=== PATIENT | female | born 1950 | race Caucasian/White ===

== ENCOUNTER → 2018-11-22 18:22 | Outpatient (CLI) | payer OTHER, SELFPAY ==
--- NOTE | 2018-11-22 18:27 | DI.MRI.S_ITS ---
PROCEDURE: MRFOOT LT WO CON INDICATIONS: PERONEAL TENDINITIS TECHNIQUE: Noncontrast sagittal T1 spin echo and T2 fast spin echo with fat saturation, long-axis T1 spin echo and T2 fast spin echo with fat saturation, short-axis T1 spin echo and T2 fast spin echo with fat saturation through the forefoot. COMPARISON: None. FINDINGS: Image quality: Diagnostic. Bones and joints: There is diffuse prominent marrow edema identified involving the anterior aspect of the calcaneus with a small nondisplaced fracture line evident involving the anterior process. There is mild focal marrow edema evident involving the adjacent cuboid. Otherwise, the remainder of the image osseous structures are unremarkable. Please note that the entire calcaneus and hindfoot structures are not included on this study. No suspicious osseous lesions are present. No dislocation is evident. There are mild degenerative changes involving the midfoot and forefoot joints, most pronounced involving the lateral tarsometatarsal joints. Soft tissues: Moderate soft tissue swelling about the lateral margin of the image portions of the calcaneus are present. Additional areas of midfoot soft tissue edema is noted. No loculated or drainable fluid collections are present. No soft tissue masses are evident. There is diffuse atrophy involving the intrinsic muscles of the foot. Please note that the peroneal tendons are not adequately included on this study. However, there probably is thickening of the peroneus longus tendon underlying the cuboid. No significant tearing is present. The peroneus brevis tendon is intact, but not well evaluated IMPRESSION: 1. Nondisplaced fracture involving the anterior process of the calcaneus. 2. Mild to moderate degenerative changes at the midfoot and hindfoot are more prominent involving the cuboid-4th/5th metatarsal joints. This may potentially mimic peroneal tendinopathy. 3. Probable mild distal peroneus longus tendinopathy. 4. Please note that the peroneal tendons at the level of the ankle are not included. If there continues to be concern for peroneal tendon pathology, please consider an MRI for further evaluation. Dictated by: Pavan Donahue M.D. on 11/25/2018 at 9:09 Approved by: Pavan Donahue M.D. on 11/25/2018 at 9:21
== END ==
LOC: MRI 18:26
PROVIDERS: Visit Provider Podiatrist
DX: S92.022A Displaced fracture of anterior process of left calcaneus, initial encounter for closed fracture (principal); M76.72 Peroneal tendinitis, left leg; M19.072 Primary osteoarthritis, left ankle and foot
CPT/HCPCS: 73718

== ENCOUNTER → 2020-01-01 08:42 | Outpatient (CLI) | payer OTHER, SELFPAY | PROVIDERS: PCP Family Medicine; Referring Provider Podiatrist; Visit Provider Family Medicine | DX: L97.521 Non-pressure chronic ulcer of other part of left foot limited to breakdown of skin (principal); E11.621 Type 2 diabetes mellitus with foot ulcer; L03.116 Cellulitis of left lower limb | CPT/HCPCS: 11042; 87070; 87075; 87077; 87186; 87205; 99203; 99214 ==

== ENCOUNTER → 2020-01-08 11:44 | Outpatient (CLI) | payer OTHER, SELFPAY | PROVIDERS: PCP Family Medicine; Referring Provider Family Medicine; Visit Provider Family Medicine | DX: E11.621 Type 2 diabetes mellitus with foot ulcer (principal); L97.521 Non-pressure chronic ulcer of other part of left foot limited to breakdown of skin | CPT/HCPCS: 97597 ==

== ENCOUNTER → 2020-01-15 09:42 | Outpatient (CLI) | payer OTHER, SELFPAY | PROVIDERS: PCP Family Medicine; Referring Provider Family Medicine; Visit Provider Family Medicine | DX: E11.43 Type 2 diabetes mellitus with diabetic autonomic (poly)neuropathy (principal); M21.6X2 Other acquired deformities of left foot | CPT/HCPCS: 99212; 99213 ==

== ENCOUNTER → 2020-05-26 13:34 | Outpatient (CLI) | payer OTHER, SELFPAY | PROVIDERS: PCP Family Medicine; Referring Provider Family Medicine; Visit Provider Family Medicine | DX: E11.621 Type 2 diabetes mellitus with foot ulcer (principal); L97.521 Non-pressure chronic ulcer of other part of left foot limited to breakdown of skin; E11.40 Type 2 diabetes mellitus with diabetic neuropathy, unspecified | CPT/HCPCS: 11042; 87070; 87075; 87077; 87186; 87205; 99213; 99214 ==

== ENCOUNTER → 2020-06-02 13:14 | Outpatient (CLI) | payer OTHER, SELFPAY | PROVIDERS: PCP Family Medicine; Referring Provider Family Medicine; Visit Provider Family Medicine | DX: E11.621 Type 2 diabetes mellitus with foot ulcer (principal); M21.6X2 Other acquired deformities of left foot; E11.40 Type 2 diabetes mellitus with diabetic neuropathy, unspecified | CPT/HCPCS: 99213 ==

== ENCOUNTER 2020-08-28 13:34 | Emergency (ER) | payer OTHER, SELFPAY ==
[2020-08-28 13:44] VITALS: BP 149/67; PULSE 82; RESP 12; TEMP 36.1; O2SAT 98; BMI 36.5
--- NOTE | 2020-08-28 16:07 | ED.WOUNDLAC ---
HPI - Wound/Laceration General Chief Complaint: Wound/Laceration Stated Complaint: suspects infection on callous of left foot Time Seen by Provider: 08/28/20 16:07 Source: patient Mode of arrival: Wheelchair Limitations: no limitations History of Present Illness HPI narrative: Patient is a 69-year-old female. She is a insulin-dependent diabetic. Has a known callus on the lateral aspect of her left foot that she has had for quite a while. She reports that she started noticing some more discomfort in the area over the past week and then over the past 24 hours has noticed redness and a swelling and potential infection over the area. She is afebrile. She has a appointment with wound care at the beginning of next week. She has not tried anything for the symptoms prior to arrival. Related Data Previous Rx's Medication Instructions Recorded cephalexin 500 mg PO QID 14 Days #56 cap 08/28/20 sulfamethoxazole-trimethoprim 1 tab PO BID 14 Days #28 tab 08/28/20 [Bactrim DS] Allergies Allergy/AdvReac Type Severity Reaction Status Date / Time codeine Allergy Severe ITCHING Verified 08/28/20 13:47 unknown antibiotic Allergy Mild Uncoded 08/28/20 13:49 Review of Systems Constitutional Constitutional: Denies fever(s) Cardiovascular Cardiovascular: Denies dyspnea Respiratory Respiratory: Denies dyspnea Gastrointestinal Gastrointestinal: Denies abdominal pain Musculoskeletal Comments: Redness and swelling to left foot Integumentary/Breasts Comments: Redness and swelling to left foot Neurologic Neurologic: Denies behavioral changes Comments: No sensation changes left foot Psychiatric Psychiatric: Denies behavioral changes Hematologic/Lymphatic On Anticoagulants: No Allergic/Immunologic Allergic/Immunologic: Denies urticaria Patient History Medical History Diabetes Social History Smoking Status: Former smoker Smoking Status: Former smoker Substance Use Type: does not use Exam Initial Vital Signs Initial Vital Signs: Vital Signs Temperature 97.0 F L 08/28/20 13:44 Pulse Rate 82 08/28/20 13:44 Respiratory Rate 12 08/28/20 13:44 Blood Pressure 149/67 H 08/28/20 13:44 Pulse Oximetry 98 08/28/20 13:44 Const General: cooperative and comfortable Limitations: mental status not altered HENMT Head: normal to inspection and normocephalic Cardio Pulses: dorsalis pedis present Skin Other: Patient does have a 2 cm callus on the lateral aspect of the left foot. Just superior to this she does have a 3 cm x 2 cm superficial abscess. Has cellulitis that extends to the dorsum of the foot but not proximal to the ankle. Neuro Other: Decreased sensation bilateral lower extremities but this is not new for Extrem Other: Full range of motion of left ankle. Procedures Abscess I/D I&D #1: Site: foot Side (if applicable): left Technique: incised with #11 blade Irrigation: No Packing used?: none Complications: other (None) Course Orders Ordered: ED Orders 08/28/20 16:05 Wound Culture and Gram Stain Stat Discontinued Medications Cephalexin HCl (Cephalexin 250 Mg Capsule) 500 mg PO NOW ONE Stop: 08/28/20 16:09 Last Admin: 08/28/20 16:21 Dose: 500 mg Documented by: BALBIR Trimethoprim/Sulfamethoxazole (Trimeth/Sulfa 160/800 (Ds) Tablet) 1 tab PO NOW ONE Stop: 08/28/20 16:09 Last Admin: 08/28/20 16:21 Dose: 1 tab Documented by: BALBIR Vital Signs Vital signs: Vital Signs - 8 hr 08/28/20 13:44 Temperature 97.0 F L Pulse Rate 82 Respiratory Rate 12 Blood Pressure 149/67 H Pulse Oximetry 98 MDM - Wound/Laceration MDM Narrative Medical decision making narrative: Patient does no change in her neurologic status. The superficial abscess was drained. No anesthetic was used and patient tolerated well. A wound culture was taken. Will send home with antibiotics. She is given her 1st dose here in the ER and a prescription was sent to the pharmacy of her choice. She ordered is a follow-up with wound care next week. She is nontoxic. Nonseptic. She was given return precautions. She expressed understanding and agreement. Discharge Plan Departure Patient Disposition: Home Clinical Impression: Cellulitis Instructions: DI for Cellulitis -- Adult Activity Restrictions/Additional Instructions: I recommend you take all of your antibiotics as directed. Continue to take the rest of your medications as directed. Keep your scheduled appointment with the wound care clinic on Sunday. Return to the emergency department for any new or worsening symptoms Prescriptions: New cephalexin 500 mg capsule 500 mg PO QID 14 Days Qty: 56 RF: 0 sulfamethoxazole-trimethoprim [Bactrim DS] 800-160 mg tablet 1 tab PO BID 14 Days Qty: 28 RF: 0 Referrals: Opal Escalante PA-C [Primary Care Provider] -
[2020-08-28] MEDS: TRIMETH/SULFA 160/800 (DS) TABLET 1 TAB PO (16:21)
[2020-08-28] MEDS: cephALEXin 250 MG CAPSULE 500 MG PO (16:21)
--- NOTE | 2020-08-28 16:27 | PC.NURSE ---
reports second ocurance of this blister. Seen in wound care prior for it. Provider lanced and obtained a culture specimen sent to the lab. covered with non adhearant gauze, wrapped with roll gauze and coban.
== END 2020-08-28 16:29 | disposition home or self-care (01) ==
PROVIDERS: Emergency Provider Emergency Medicine; PCP Physician Assistant Medical
DX: L03.116 Cellulitis of left lower limb (principal)
CPT/HCPCS: 87070; 87075; 87077; 87147; 87186; 87205; 99283

== ENCOUNTER → 2020-08-31 09:40 | Outpatient (CLI) | payer OTHER, SELFPAY | PROVIDERS: PCP Physician Assistant Medical; Referring Provider Physician Assistant Medical; Visit Provider Family Medicine | DX: E11.621 Type 2 diabetes mellitus with foot ulcer (principal); L97.521 Non-pressure chronic ulcer of other part of left foot limited to breakdown of skin; L03.116 Cellulitis of left lower limb; L08.9 Local infection of the skin and subcutaneous tissue, unspecified; R60.0 Localized edema; E11.40 Type 2 diabetes mellitus with diabetic neuropathy, unspecified | CPT/HCPCS: 11042; 99213; 99214 ==

== ENCOUNTER → 2020-09-07 14:45 | Outpatient (CLI) | payer OTHER, SELFPAY | PROVIDERS: PCP Physician Assistant Medical; Referring Provider Physician Assistant Medical; Visit Provider Family Medicine | DX: E11.621 Type 2 diabetes mellitus with foot ulcer (principal); L97.521 Non-pressure chronic ulcer of other part of left foot limited to breakdown of skin | CPT/HCPCS: 99212 ==

== ENCOUNTER → 2020-09-14 11:27 | Outpatient (CLI) | payer OTHER, SELFPAY | PROVIDERS: PCP Physician Assistant Medical; Referring Provider Physician Assistant Medical; Visit Provider Family Medicine | DX: E11.40 Type 2 diabetes mellitus with diabetic neuropathy, unspecified (principal); Z86.31 Personal history of diabetic foot ulcer; R60.0 Localized edema; M21.6X2 Other acquired deformities of left foot | CPT/HCPCS: 99213 ==

== ENCOUNTER 2020-10-30 16:28 | Emergency (ER) | payer OTHER, SELFPAY ==
[2020-10-30] VITALS (14 sets, daily range): BP systolic 134–152; BP diastolic 60–68; PULSE 91–111; RESP 12–22; TEMP 36.9; O2SAT 92–98; BMI 36.5
--- NOTE | 2020-10-30 16:29 | DI.RAD.S_ITS ---
PROCEDURE: XR CHEST 1V INDICATIONS: shortness of breath TECHNIQUE: One view of the chest was acquired. COMPARISON: None. FINDINGS: Surgical changes and devices: None. Lungs and pleura: Lungs are clear. No pleural effusions or pneumothorax. Mediastinum: Mediastinal contours appear normal. Heart size is normal. Bones and chest wall: No suspicious bony lesions. Overlying soft tissues appear unremarkable. IMPRESSION: No evidence acute pulmonary process. Dictated by: Robin Mohr M.D. on 10/30/2020 at 15:58 Approved by: Robin Mohr M.D. on 10/30/2020 at 15:58
[2020-10-30 16:59] LABS: Add Manual Diff / Slide Review NO; Basophils Absolute Auto 0 /uL (0-100); Basophils Percent Auto 0.5 % (0-2); Eosinophils Absolute Auto 0 /uL (0-450); Eosinophils Percent Auto 0.1 % (2-4); Hematocrit 38.1 % (36-46); Hemoglobin 13.2 g/dL (12.0-16.0); Lymphocytes Absolute Auto 900 /uL (1100-4500); Lymphocytes Percent Auto 19.4 % (25-40); Mean Corpuscular HGB Conc 34.8 % (30-36); Mean Corpuscular Hemoglobin 31.9 PG (26-34); Mean Corpuscular Volume 91.8 fL (80-100); Monocytes Absolute Auto 200 /uL (0-900); Monocytes Percent Auto 4.1 % (3-14); Neutrophils Absolute Auto 3700 /uL (1500-7000); Neutrophils Percent Auto 75.9 % (50-75); Platelet Count 211 X10^3/uL (150-400); Red Blood Cell Count 4.15 X10^6/uL (4.0-5.2); Red Cell Distribution Width 13.1 % (11.6-14.8); White Blood Cell Count 4.8 X10^3/uL (4.5-11.0)
[2020-10-30 17:11] LABS: Alanine Aminotransferase 48 IU/L (<35); Albumin 3.9 g/dL (3.5-5.0); Albumin Globulin Ratio 1.2 (1.0-2.8); Alkaline Phosphatase 110 U/L (38-126); Aspartate Aminotransferase 34 IU/L (14-36); BUN Creatinine Ratio 41.9 (6-22); Bilirubin Total 0.3 mg/dL (0.2-1.3); Blood Urea Nitrogen 39 mg/dL (7-17); Calcium 9.4 mg/dL (8.4-10.2); Carbon Dioxide 21 mmol/L (22-32); Chloride 105 mmol/L (98-107); Globulin 3.2 g/dL (1.7-4.1); Glucose 334 mg/dL (80-110); HEMOLYSIS < 15 (0-50); Lactate (Lactic Acid) 2.3 mmol/L (0.7-2.1); Potassium 4.5 mmol/L (3.4-5.1); Sodium 135 mmol/L (137-145); Total Protein 7.1 g/dL (6.3-8.2)
--- NOTE | 2020-10-30 17:29 | ED_ITS ---
HPI - SOB/Dyspnea General Chief Complaint: Shortness of Breath/Dyspnea Stated Complaint: sob Time Seen by Provider: 10/30/20 16:50 Source: patient Mode of arrival: Ambulatory Limitations: no limitations History of Present Illness HPI Narrative: This is a 69-year-old female who comes in with complaint of feeling unwell. Patient states she had a cough prior to testing positive for COVID. She since then he has had some increased nausea but no active vomiting, decreased appetite, she has had headaches, muscle aches and fatigue. She has had some mild chest discomfort, and describes some mild shortness of breath. She does state she feels quite tired walking around. She states she has not been eating and drinking much. She states her sugars had been well controlled until recently. She is an insulin-dependent diabetic, she had takes medication for hypertension and ibuprofen 800 mg twice daily. Patient denies any known cardiac history. She states she has had a prior hysterectomy. She has allergies to codeine and Augmentin. She quit using tobacco in 2000, no alcohol or illicit. Her primary care physician is Deven escalante. patient lives independently with her sister who has been helping her currently. Related Data Previous Rx's Medication Instructions Recorded ondansetron 4 mg PO Q6H PRN #10 tab 10/30/20 Allergies Allergy/AdvReac Type Severity Reaction Status Date / Time codeine Allergy Severe ITCHING Verified 08/28/20 13:47 amoxicillin [From Augmentin] Allergy Verified 10/30/20 16:48 clavulanic acid Allergy Verified 10/30/20 16:48 [From Augmentin] unknown antibiotic Allergy Mild Uncoded 08/28/20 13:49 Review of Systems Review of Systems ROS Unobtainable: All systems reviewed & are unremarkable except as noted in HPI and below Patient History Medical History Diabetes Hypertension Social History Smoking Status: Former smoker Smoking Status: Former smoker Substance Use Type: does not use Exam Narrative Exam Narrative: GENERAL: Alert and oriented x three, female in mild distress. HEENT: Head normocephalic, atraumatic, EOMI, pupils reactive, face symmetric, moist mucous membranes NECK: Supple, full range of motion CARDIOVASCULAR: regular but tachycardic rate and rhythm without murmurs, rubs or gallops. RESPIRATORY: Breath sounds equal bilaterally, no wheezes rales or rhonchi. No JVD. No swelling in extremities. ABDOMEN: Soft, nontender. Normoactive bowel sounds all 4 quadrants. No guarding or rebound, rigidity, no mass : No CVA tenderness EXTREMITIES: Normal range of motion, no clubbing or edema. Neurovascularly intact NEUROLOGICAL: Cranial nerves II through XII grossly intact. Moving all extremities SKIN: Warm, dry, no petechiae, no rashes or lesions. Initial Vital Signs Initial Vital Signs: Vital Signs Temperature 98.5 F 10/30/20 16:30 Pulse Rate 110 H 10/30/20 16:30 Respiratory Rate 12 10/30/20 16:30 Blood Pressure 138/66 10/30/20 16:30 Pulse Oximetry 98 10/30/20 16:30 Course Orders Ordered: ED Orders 10/30/20 16:29 XR chest 2V Stat RT Consult Eval and Treat Now 10/30/20 16:40 Complete Blood Count AUTO DIFF Stat Comprehensive Metabolic Panel Stat Lactate (Lactic Acid) Stat NT-proBNP (BNP-Adult 18+) Stat Procalcitonin Stat Troponin & CK Cardiac Panel Stat 10/30/20 16:57 EKG-12 Lead Stat Discontinued Medications Acetaminophen (Acetaminophen 325 Mg Tablet) 975 mg PO NOW ONE Stop: 10/30/20 19:46 Sodium Chloride (Normal Saline 0.9%) 1,000 mls @ 1,000 mls/hr IV BOLUS ONE Stop: 10/30/20 18:33 Last Infusion: 10/30/20 19:01 Dose: 0 mls/hr Documented by: Admin: 10/30/20 17:45 Dose: 1,000 mls/hr Documented by: EL Ondansetron HCl (Ondansetron 4 Mg/2 Ml Inj) 4 mg IV NOW ONE Stop: 10/30/20 17:49 Last Admin: 10/30/20 17:50 Dose: 4 mg Documented by: RAMIRO Ondansetron HCl (Ondansetron 4 Mg Odt Prepack) 1 bottle MISC SEEINSTR ONE Stop: 10/30/20 19:53 Vital Signs Vital signs: Vital Signs - 8 hr 10/30/20 16:30 10/30/20 16:47 10/30/20 17:00 Temperature 98.5 F Pulse Rate 110 H 111 H 109 H Respiratory Rate 12 16 16 Blood Pressure 138/66 136/63 Pulse Oximetry 98 96 95 10/30/20 17:30 10/30/20 17:59 10/30/20 18:00 Temperature Pulse Rate 107 H 100 H 97 H Respiratory Rate 20 19 Blood Pressure 134/60 138/65 Pulse Oximetry 96 95 92 10/30/20 18:30 Temperature Pulse Rate 96 H Respiratory Rate 19 Blood Pressure 146/65 H Pulse Oximetry 93 MDM - SOB/Dyspnea Lab Data Attestation: I reviewed the patient's lab results. Result diagrams: 10/30/20 16:40 10/30/20 16:40 Labs: Lab Results 10/30/20 10/30/20 10/30/20 Range/Units 16:40 16:40 16:40 WBC 4.8 (4.5-11.0) X10^3/uL RBC 4.15 (4.0-5.2) X10^6/uL Hgb 13.2 (12.0-16.0) g/dL Hct 38.1 (36-46) % MCV 91.8 (80-100) fL MCH 31.9 (26-34) PG MCHC 34.8 (30-36) % RDW 13.1 (11.6-14.8) % Plt Count 211 (150-400) X10^3/uL Neut % (Auto) 75.9 H (50-75) % Lymph % (Auto) 19.4 L (25-40) % [place] % (Auto) 4.1 (3-14) % Eos % (Auto) 0.1 L (2-4) % Baso % (Auto) 0.5 (0-2) % Neut # (Auto) 3700 (2496-2031) /uL Lymph # (Auto) 900 L (5208-1815) /uL [place] # (Auto) 200 (0-900) /uL Eos # (Auto) 0 (0-450) /uL Baso # (Auto) 0 (0-100) /uL Sodium 135 L (137-145) mmol/L Potassium 4.5 (3.4-5.1) mmol/L Chloride 105 (98-107) mmol/L Carbon Dioxide 21 L (22-32) mmol/L BUN 39 H (7-17) mg/dL Creatinine 0.93 (0.52-1.04) mg/dL Estimated GFR 60.0 (>60) mL/min BUN/Creatinine Ratio 41.9 H (6-22) Glucose 334 H (80-110) mg/dL Lactate 2.3 H (0.7-2.1) mmol/L Calcium 9.4 (8.4-10.2) mg/dL Total Bilirubin 0.3 (0.2-1.3) mg/dL AST 34 (14-36) IU/L ALT 48 H (<35) IU/L Alkaline Phosphatase 110 (38-126) U/L Total Creatine Kinase (30-135) U/L CK-MB (CK-2) CK-MB (CK-2) Rel Index Troponin I (0.01-0.034) ng/mL NT-Pro-B Natriuret Pep (<125) pg/mL Total Protein 7.1 (6.3-8.2) g/dL Albumin 3.9 (3.5-5.0) g/dL Globulin 3.2 (1.7-4.1) g/dL Albumin/Globulin Ratio 1.2 (1.0-2.8) Procalcitonin (<0.5) ng/mL 10/30/20 10/30/20 10/30/20 Range/Units 16:40 16:40 16:40 WBC (4.5-11.0) X10^3/uL RBC (4.0-5.2) X10^6/uL Hgb (12.0-16.0) g/dL Hct (36-46) % MCV (80-100) fL MCH (26-34) PG MCHC (30-36) % RDW (11.6-14.8) % Plt Count (150-400) X10^3/uL Neut % (Auto) (50-75) % Lymph % (Auto) (25-40) % [place] % (Auto) (3-14) % Eos % (Auto) (2-4) % Baso % (Auto) (0-2) % Neut # (Auto) (7408-8564) /uL Lymph # (Auto) (5702-7205) /uL [place] # (Auto) (0-900) /uL Eos # (Auto) (0-450) /uL Baso # (Auto) (0-100) /uL Sodium (137-145) mmol/L Potassium (3.4-5.1) mmol/L Chloride (98-107) mmol/L Carbon Dioxide (22-32) mmol/L BUN (7-17) mg/dL Creatinine (0.52-1.04) mg/dL Estimated GFR (>60) mL/min BUN/Creatinine Ratio (6-22) Glucose (80-110) mg/dL Lactate (0.7-2.1) mmol/L Calcium (8.4-10.2) mg/dL Total Bilirubin (0.2-1.3) mg/dL AST (14-36) IU/L ALT (<35) IU/L Alkaline Phosphatase (38-126) U/L Total Creatine Kinase 88 (30-135) U/L CK-MB (CK-2) TNP CK-MB (CK-2) Rel Index TNP Troponin I < 0.012 (0.01-0.034) ng/mL NT-Pro-B Natriuret Pep 21 (<125) pg/mL Total Protein (6.3-8.2) g/dL Albumin (3.5-5.0) g/dL Globulin (1.7-4.1) g/dL Albumin/Globulin Ratio (1.0-2.8) Procalcitonin 0.14 (<0.5) ng/mL 10/30/20 Range/Units 18:48 WBC (4.5-11.0) X10^3/uL RBC (4.0-5.2) X10^6/uL Hgb (12.0-16.0) g/dL Hct (36-46) % MCV (80-100) fL MCH (26-34) PG MCHC (30-36) % RDW (11.6-14.8) % Plt Count (150-400) X10^3/uL Neut % (Auto) (50-75) % Lymph % (Auto) (25-40) % [place] % (Auto) (3-14) % Eos % (Auto) (2-4) % Baso % (Auto) (0-2) % Neut # (Auto) (5449-0554) /uL Lymph # (Auto) (2148-8175) /uL [place] # (Auto) (0-900) /uL Eos # (Auto) (0-450) /uL Baso # (Auto) (0-100) /uL Sodium (137-145) mmol/L Potassium (3.4-5.1) mmol/L Chloride (98-107) mmol/L Carbon Dioxide (22-32) mmol/L BUN (7-17) mg/dL Creatinine (0.52-1.04) mg/dL Estimated GFR (>60) mL/min BUN/Creatinine Ratio (6-22) Glucose (80-110) mg/dL Lactate 2.2 H (0.7-2.1) mmol/L Calcium (8.4-10.2) mg/dL Total Bilirubin (0.2-1.3) mg/dL AST (14-36) IU/L ALT (<35) IU/L Alkaline Phosphatase (38-126) U/L Total Creatine Kinase (30-135) U/L CK-MB (CK-2) CK-MB (CK-2) Rel Index Troponin I (0.01-0.034) ng/mL NT-Pro-B Natriuret Pep (<125) pg/mL Total Protein (6.3-8.2) g/dL Albumin (3.5-5.0) g/dL Globulin (1.7-4.1) g/dL Albumin/Globulin Ratio (1.0-2.8) Procalcitonin (<0.5) ng/mL Point of Care Testing Glucose POC 270 Urine Dip Bedside Urine Glucose 500 mg/dl Bedside Urine Bilirubin - Negative Bedside Urine Ketone - Negative Urine Specific [place] 1.030 Bedside Urine Occult Blood - Negative Bedside Urine pH 6.0 Bedside Urine Protein - Negative Bedside Urine Urobilinogen - Negative Bedside Urine Nitrite - Negative Bedside Urine Leukocytes - Negative Esterase Imaging Data Chest x-ray: Radiologist's Impression: [address] [id number] ReportSigned Patient: Marissa Parikh AMR#: [id number]: 2Acct:[id number]/Sex: 69 / FDate of Service: 10/30/20Loc: EDAccession Number: [id number] Procedure: XR chest 2V Ordering Provider: Waleska Bhakta D.O. PROCEDURE: XR CHEST 1V INDICATIONS: shortness of breath TECHNIQUE: One view of the chest was acquired. COMPARISON: None. FINDINGS: Surgical changes and devices: None. Lungs and pleura: Lungs are clear. No pleural effusions or pneumothorax. Mediastinum: Mediastinal contours appear normal. Heart size is normal. Bones and chest wall: No suspicious bony lesions. Overlying soft tissues appear unremarkable. IMPRESSION: No evidence acute pulmonary process. Dictated by: Robin Mohr M.D. on 10/30/2020 at 15:58 Approved by: Robin Mohr M.D. on 10/30/2020 at 15:58 [facility] Narrative Medical decision making narrative: This is a 61-year-old female with known hypertension and insulin-dependent diabetes who tested COVID positive approximately week ago and has about 2 weeks of symptoms which been slowly worsening. Patient came in today because she is feeling quite fatigued and tired. She states she has had some mild shortness of breath and chest pressure. Patient's initial troponin is negative, she has sinus tachycardia heart rate of 108 but has not been persistent and improved here in the department. She has not been hypoxic during her stay. Patient has some 0135, carbon dioxide is 21 with BUN of 39 and a normal creatinine. Her anion gap is 9. Glucose was rechecked after fluids. She is also noted to have a lactate was 2.3 and this was repeated as well. chest x-ray here today is negative for acute changes. patient's lactate is trending downward. She feels comfortable returning home. Plan for her to obtain a pulse ox. Patient was given return precautions and discussed if she is feeling worse that she should promptly return. She would like to have a prescription for Zofran for nausea. Discharge Plan Departure Patient Disposition: Home Clinical Impression: COVID-19 virus infection, Hyperglycemia Instructions: DI for COVID-19 (Suspected or Confirmed ) Activity Restrictions/Additional Instructions: *You have been diagnosed with COVID infection, you do not have pneumonia noted today on your chest x-ray. If you wish you may obtain a pulse oximeter for use at home to monitor. Please return to the ER if your pulse oximeter shows an O2 saturation less than 94%. I would recommend taking Zofran 1 tablet every 6 hours as needed for nausea. Also make sure you are trying to stay well hydrated. *What to do: * per recommendations from the CDC and the [facility] Department of Health * stay home except to get medical care. Restrict activities outside your home, except for getting medical care. Do not go to work, school, or public areas. Avoid using public transportation, ride sharing, or taxis. * separate yourself from other people in your home. * call ahead before visiting your doctor * Wear a face mask * Cover your coughs and sneezes * Clean your hands often * Avoid sharing household items * Clean all high-touch services every day * Monitor your symptoms and seek prompt medical attention if your illness is worsening, particularly with difficulty in breathing. Discussed continuing home isolation * for individuals with symptoms who are confirmed or suspected cases of COVID-19 and are directed to care for themselves at home, discontinue home isolation under the following conditions: 1. At least 72 hours have passed since recovery, defined as resolution of fever without the use of fever reducing medications, and improvement in respiratory symptoms (cough, shortness of breath) AND, 2. At least 7 days have passed since symptoms 1st appeared Individuals with laboratory confirmed COVID-19 who have not had any symptoms may discontinue home isolation when at least 7 days have passed since the date of their 1st COVID-19 diagnostic test and have had no subsequent illness Prescriptions: New ondansetron 4 mg tablet,disintegrating 4 mg PO Q6H PRN (Reason: nausea and vomiting) Qty: 10 RF: 0 Referrals: Opal Escalante PA-C [Primary Care Provider] -
[2020-10-30] MEDS: SODIUM CHLORIDE 0.9% 1,000 ML 1000 ML IV (17:45)
[2020-10-30] MEDS: ONDANSETRON 4 MG/2 ML INJ IV (17:50)
[2020-10-30 18:02] LABS: Creatine Kinase 88 U/L (30-135)
[2020-10-30 18:15] LABS: Troponin I < 0.012 ng/mL (0.01-0.034)
[2020-10-30 18:27] LABS: NT-proBNP (BNP-Adult 18+) 21 pg/mL (<125)
[2020-10-30 18:48] LABS: Reflexed Lactate in 2 Hours Y
[2020-10-30 18:53] LABS: Procalcitonin 0.14 ng/mL (<0.5)
[2020-10-30 19:31] LABS: Lactate 2HR (Lactic Acid Rflx) 2.2 mmol/L (0.7-2.1)
[2020-10-30] MEDS: ACETAMINOPHEN 325 MG TABLET 975 MG PO (20:01)
[2020-10-30] MEDS: ONDANSETRON 4 MG ODT PREPACK 1 BOTTLE MISC (20:01)
== END 2020-10-30 20:43 | disposition home or self-care (01) ==
PROVIDERS: Emergency Provider Emergency Medicine; PCP Physician Assistant Medical
DX: U07.1 COVID-19 (principal); E11.65 Type 2 diabetes mellitus with hyperglycemia
CPT/HCPCS: 36415; 71046; 80053; 81003; 82550; 82962; 83605; 83880; 84145; 84484; 85025; 93005; 93010; 96361; 96374; 99285; J2405

== ENCOUNTER 2021-11-10 12:29 | Inpatient (IN) | payer OTHER, MEDICAID, SELFPAY ==
[2021-11-10 12:45] VITALS: BP 128/66; PULSE 94; RESP 18; TEMP 36.1; O2SAT 95; BMI 37.5
--- NOTE | 2021-11-10 13:24 | DI.RAD.S_ITS ---
PROCEDURE: XR FOOT LT MIN 3V INDICATIONS: Infection L 4th toe TECHNIQUE: 3 views of the foot were acquired. COMPARISON: None. FINDINGS: Bones: No fractures or dislocations. There is slight irregularity of the distal 4th phalanx tuft. Soft tissues: No tibiotalar joint effusion. 4th digit edema is present. Achilles tendon appears normal. IMPRESSION: Slight irregularly the 4th distal phalanx tuft with edema. Developing osteomyelitis cannot be excluded. Dictated by: Roseline Marie M.D. on 11/10/2021 at 14:09 Approved by: Roseline Marie M.D. on 11/10/2021 at 14:10
--- NOTE | 2021-11-10 13:30 | ED.EXTPRO ---
HPI - Extremity Problem <Adebayo Gunn PA-C - Last Filed: 11/10/21 16:22> General Chief complaint: Extremity Problem,Nontraumatic Stated complaint: Infected Lt Foot Time Seen by Provider: 11/10/21 13:05 Source: patient Mode of arrival: Wheelchair History of Present Illness HPI Narrative: This is a 70-year-old female presents emergency department due to a left 4th toe infection onset reportedly 3 weeks ago. States that she did have symptoms the couple months prior and was using antibiotic ointment without success. Coming in due to the worsening of the open wound to the left 4th toe. Patient does have a history of diabetes. States that the redness has gradually spread to the distal portion of her foot. Reports intermittent fevers and chills for the last 3 days. Denies any swelling of the remainder of the left lower extremity, nausea, vomiting, chest pain, shortness of breath, or any other concerning signs or symptoms. Related Data Home Medications Medication Instructions Recorded Confirmed dulaglutide 0.75 mg/0.5 mL 1 ea SUBCUT QWEEK 11/10/21 11/10/21 subcutaneous pen injector (Trulicity) glipizide 10 mg tablet 1 tab PO BID 11/10/21 11/10/21 ibuprofen 800 mg tablet 1 tab PO BID 11/10/21 11/10/21 insulin aspart U-100 100 unit/mL See Rx Instructions .Route .COMPLEX 11/10/21 11/10/21 (3 mL) subcutaneous pen (Novolog Flexpen U-100 Insulin aspart) insulin degludec 100 unit/mL (3 1 ea SUBCUT DAILY 11/10/21 11/10/21 mL) subcutaneous pen (Tresiba FlexTouch U-100 insulin) lisinopril 20 1 tab PO DAILY 11/10/21 11/10/21 mg-hydrochlorothiazide 12.5 mg tablet lovastatin 20 mg tablet 1 tab PO DAILY 11/10/21 11/10/21 metformin 500 mg tablet,extended 1 tab PO BID 11/10/21 11/10/21 release 24 hr Allergies Allergy/AdvReac Type Severity Reaction Status Date / Time codeine Allergy Severe ITCHING Verified 08/28/20 13:47 amoxicillin [From Augmentin] Allergy Verified 10/30/20 16:48 clavulanic acid Allergy Verified 10/30/20 16:48 [From Augmentin] unknown antibiotic Allergy Mild Uncoded 08/28/20 13:49 Review of Systems <Adebayo Gunn PA-C - Last Filed: 11/10/21 16:22> Review of Systems Narrative: GENERAL: Denies chills, fatigue, malaise, fever, sweats. HEENT: Denies sinus pain, ear pain, sore throat, difficulty swallowing, dizziness. RESPIRATORY: Denies dyspnea, cough, wheezing, hemoptysis, sputum. CARDIOVASCULAR: Denies chest pain, palpitations, orthopnea, edema, GASTROINTESTINAL: Denies nausea, vomiting, abdominal pain, diarrhea, constipation, melena. : Denies dysuria, frequency, incontinence, hematuria, urinary retention. MUSCULOSKELETAL: denies weakness, joint pain, or bony pain SKIN: Left 4th toe pain with purulent drainage and wound NEUROLOGIC: Denies weakness, headache, numbness, change in speech, confusion, seizures, incoordination. PSYCHIATRIC: No concerning psychosocial issues. 12 point review of systems is negative except for those stated above Patient History <PEG Herrera Last Filed: 11/10/21 16:22> Medical History Diabetes Hyperlipidemia Hypertension Surgical History H/O: hysterectomy History of cholecystectomy History of left knee replacement Family History Father Cancer Mother COPD (chronic obstructive pulmonary disease) Social History household members: family Smoking Status: Former smoker alcohol intake: never Smoking Status: Former smoker Substance Use Type: does not use Exam <PEG Herrera Last Filed: 11/10/21 16:22> Narrative Exam Narrative: GENERAL: Well-developed patient, in mild distress. HEAD: Atraumatic. Normocephalic. EYES: Pupils equal round and reactive. Extraocular motions intact. No scleral icterus. No injection or drainage. ENT: Nose without bleeding, purulent drainage. Throat without erythema, tonsillar hypertrophy or exudate. Airway patent. NECK: Trachea midline. Non tender CARDIOVASCULAR: Regular rate and rhythm without murmurs, gallops, or rubs. RESPIRATORY: Clear to auscultation. Breath sounds equal bilaterally. No wheezes, rales, or rhonchi. GASTROINTESTINAL: Abdomen soft, non-tender, nondistended. EXTREMITIES: No edema or joint tenderness. BACK: Nontender without deformity or crepitance. No flank tenderness. NEURO: AOx3. SKIN: Left 4th toe has a wound to the lateral aspect with mild purulence drainage. Mild erythema to the distal half of the left foot. Distally neurovascularly intact. 2+ capillary refill throughout. Palpable dorsalis pedis and posterior tibialis pulse. Initial Vital Signs Initial Vital Signs: Vital Signs Temperature 97 F L 11/10/21 12:45 Pulse Rate 94 H 11/10/21 12:45 Respiratory Rate 18 11/10/21 12:45 Blood Pressure 128/66 11/10/21 12:45 Pulse Oximetry 95 11/10/21 12:45 Oxygen Delivery Method 11/10/21 12:45 <Romina Yanez DO - Last Filed: 11/11/21 07:36> Initial Vital Signs Initial Vital Signs: Vital Signs Temperature 97 F L 11/10/21 12:45 Pulse Rate 94 H 11/10/21 12:45 Respiratory Rate 18 11/10/21 12:45 Blood Pressure 128/66 11/10/21 12:45 Pulse Oximetry 95 11/10/21 12:45 Oxygen Delivery Method 11/10/21 12:45 Course <Adebayo Gunn PA-C - Last Filed: 11/10/21 16:22> Orders Ordered: Acetaminophen (Acetaminophen 325 Mg Tablet) 975 mg PO Q8H PRN PRN Reason: Pain, Mild (1-3) Last Admin: 11/10/21 22:38 Dose: 975 mg Documented By: ANIKET Atorvastatin Calcium (Atorvastatin 20 Mg Tablet) 20 mg PO BEDTIME JOSE ALBERTO Last Admin: 11/10/21 20:19 Dose: 20 mg Documented By: ANIKET Hydrochlorothiazide (Hydrochlorothiazide 25 Mg Tablet) 12.5 mg PO DAILY [facility] Dextrose (D10w) 250 mls @ 999 mls/hr IV PRN PRN PRN Reason: Hypoglycemia Cefepime HCl 2 gm/ Sodium (Chloride) 100 mls @ 200 mls/hr IV Q12H JOSE ALBERTO Last Admin: 11/11/21 03:07 Dose: 200 mls/hr Documented By: ANIKET Vancomycin HCl 1,750 mg/ (Sodium Chloride) 500 mls @ 250 mls/hr IV Q24H [facility] Insulin Glargine (Insulin Glargine 100 Unit/Ml 3ml Pen) 20 unit SUBCUT 2100 [facility] Last Admin: 11/10/21 21:17 Dose: 20 unit Documented By: ANIKET Co-signed By: JESENIA Insulin Human Lispro (Insulin Lispro 100 Unit/Ml 3ml Vial) 0 unit SUBCUT ACHS [facility]; Protocol Last Admin: 11/10/21 21:16 Dose: 2 unit Documented By: ANIKET Co-signed By: JESENIA Morphine Sulfate (Morphine 2 Mg/Ml Inj) 2 mg IV Q4H PRN PRN Reason: Breakthrough pain only (8-10) Last Admin: 11/11/21 03:13 Dose: 2 mg Documented By: Admin: 11/10/21 17:05 Dose: 2 mg Documented By: CAPO Nystatin (Nystatin Powder 15gm) 1 applic TOP BID PRN PRN Reason: Rash Vancomycin HCl (Vancomycin Trough) 1 request [facility] [facility] Stop: 11/13/21 17:01 Vancomycin HCl (Vancomycin Peak) 1 request [facility] [address] [facility] Stop: 11/13/21 20:31 Discontinued Medications Cefepime HCl 2 gm/ Sodium (Chloride) 100 mls @ 200 mls/hr IV NOW ONE Stop: 11/10/21 15:00 Last Infusion: 11/10/21 16:46 Dose: 0 mls/hr Documented By: Infusion: 11/10/21 16:03 Dose: 200 mls/hr Documented By: Admin: 11/10/21 16:00 Dose: 200 mls/hr Documented By: MARK Vancomycin HCl (Vancomycin) 1,000 mg in 200 mls @ 200 mls/hr IV NOW ONE Stop: 11/10/21 15:58 Last Admin: 11/10/21 17:40 Dose: 200 mls/hr Documented By: CAPO Sodium Chloride (Normal Saline 0.9%) 1,000 mls @ 1,000 mls/hr IV BOLUS ONE Stop: 11/10/21 16:02 Last Admin: 11/10/21 15:30 Dose: Not Given Documented By: CAPO Vancomycin HCl (Vancomycin) 1,250 mg in 250 mls @ 250 mls/hr IV NOW ONE Stop: 11/10/21 19:59 Last Admin: 11/10/21 20:19 Dose: 250 mls/hr Documented By: ANIKET Vancomycin HCl (Vancomycin Per Pharmacy) 1 request MISC NOW ONE Stop: 11/10/21 17:35 Last Admin: 11/10/21 21:57 Dose: Not Given Documented By: ANIKET Vital Signs Vital signs: Vital Signs - 8 hr 11/10/21 12:45 Temperature 97 F L Pulse Rate 94 H Respiratory Rate 18 Blood Pressure 128/66 Pulse Oximetry 95 Oxygen Delivery Method Room Air <Romina Yanez, - Last Filed: 11/11/21 07:36> Orders Ordered: Acetaminophen (Acetaminophen 325 Mg Tablet) 975 mg PO Q8H PRN PRN Reason: Pain, Mild (1-3) Last Admin: 11/10/21 22:38 Dose: 975 mg Documented By: ANIKET Atorvastatin Calcium (Atorvastatin 20 Mg Tablet) 20 mg PO BEDTIME [facility] Last Admin: 11/10/21 20:19 Dose: 20 mg Documented By: ANIKET Hydrochlorothiazide (Hydrochlorothiazide 25 Mg Tablet) 12.5 mg PO DAILY JOSE ALBERTO Dextrose (D10w) 250 mls @ 999 mls/hr IV PRN PRN PRN Reason: Hypoglycemia Cefepime HCl 2 gm/ Sodium (Chloride) 100 mls @ 200 mls/hr IV Q12H [facility] Last Admin: 11/11/21 03:07 Dose: 200 mls/hr Documented By: ANIKET Vancomycin HCl 1,750 mg/ (Sodium Chloride) 500 mls @ 250 mls/hr IV Q24H JOSE ALBERTO Insulin Glargine (Insulin Glargine 100 Unit/Ml 3ml Pen) 20 unit SUBCUT 2100 JOSE [facility]ERTO Last Admin: 11/10/21 21:17 Dose: 20 unit Documented By: ANIKET Co-signed By: JESENIA Insulin Human Lispro (Insulin Lispro 100 Unit/Ml 3ml Vial) 0 unit SUBCUT ACHS JOSE ALBERTO; Protocol Last Admin: 11/10/21 21:16 Dose: 2 unit Documented By: ANIKTE Co-signed By: JESENIA Morphine Sulfate (Morphine 2 Mg/Ml Inj) 2 mg IV Q4H PRN PRN Reason: Breakthrough pain only (8-10) Last Admin: 11/11/21 03:13 Dose: 2 mg Documented By: Admin: 11/10/21 17:05 Dose: 2 mg Documented By: CAPO Nystatin (Nystatin Powder 15gm) 1 applic TOP BID PRN PRN Reason: Rash Vancomycin HCl (Vancomycin Trough) 1 request [facility] [facility] Stop: 11/13/21 17:01 Vancomycin HCl (Vancomycin Peak) 1 request [facility] 2030 [facility] Stop: 11/13/21 20:31 Discontinued Medications Cefepime HCl 2 gm/ Sodium (Chloride) 100 mls @ 200 mls/hr IV NOW ONE Stop: 11/10/21 15:00 Last Infusion: 11/10/21 16:46 Dose: 0 mls/hr Documented By: Infusion: 11/10/21 16:03 Dose: 200 mls/hr Documented By: Admin: 11/10/21 16:00 Dose: 200 mls/hr Documented By: MARK Vancomycin HCl (Vancomycin) 1,000 mg in 200 mls @ 200 mls/hr IV NOW ONE Stop: 11/10/21 15:58 Last Admin: 11/10/21 17:40 Dose: 200 mls/hr Documented By: CAPO Sodium Chloride (Normal Saline 0.9%) 1,000 mls @ 1,000 mls/hr IV BOLUS ONE Stop: 11/10/21 16:02 Last Admin: 11/10/21 15:30 Dose: Not Given Documented By: CAPO Vancomycin HCl (Vancomycin) 1,250 mg in 250 mls @ 250 mls/hr IV NOW ONE Stop: 11/10/21 19:59 Last Admin: 11/10/21 20:19 Dose: 250 mls/hr Documented By: ANIKET Vancomycin HCl (Vancomycin Per Pharmacy) 1 request [facility] NOW ONE Stop: 11/10/21 17:35 Last Admin: 11/10/21 21:57 Dose: Not Given Documented By: ANIKET Vital Signs Vital signs: Vital Signs - 8 hr 11/10/21 12:45 Temperature 97 F L Pulse Rate 94 H Respiratory Rate 18 Blood Pressure 128/66 Pulse Oximetry 95 Oxygen Delivery Method Room Air MDM - Extremity (Nontraumatic) <Adebayo Gunn PA-C - Last Filed: 11/10/21 16:22> Lab Data Result diagrams: 11/11/21 06:11 11/11/21 06:11 Labs: Lab Results 11/10/21 11/10/21 11/10/21 Range/Units 13:15 13:15 13:15 WBC 14.0 H (4.5-11.0) X10^3/uL RBC 4.17 (4.0-5.2) X10^6/uL Hgb 12.9 (12.0-16.0) g/dL Hct 37.9 (36-46) % MCV 91.0 (80-100) fL MCH 31.0 (26-34) PG MCHC 34.0 (30-36) % RDW 13.1 (11.6-14.8) % Plt Count 319 (150-400) X10^3/uL Neut % (Auto) 83.1 H (50-75) % Lymph % (Auto) 10.1 L (25-40) % Harris % (Auto) 6.1 (3-14) % Eos % (Auto) 0.4 L (2-4) % Baso % (Auto) 0.3 (0-2) % Neut # (Auto) 96919 H (4432-1992) /uL Lymph # (Auto) 1400 (2649-7287) /uL Harris # (Auto) 900 (0-900) /uL Eos # (Auto) 100 (0-450) /uL Baso # (Auto) 0 (0-100) /uL ESR 38 H (0-20) MM/HR Sodium 136 L (137-145) mmol/L Potassium 4.0 (3.4-5.1) mmol/L Chloride 99 (98-107) mmol/L Carbon Dioxide 24 (22-32) mmol/L BUN 46 H (7-17) mg/dL Creatinine 1.31 H (0.52-1.04) mg/dL Estimated GFR 44 L (>60) mL/min BUN/Creatinine Ratio 35.1 H (6-22) Glucose 292 H (80-110) mg/dL Lactate 1.4 (0.7-2.1) mmol/L Calcium 9.5 (8.4-10.2) mg/dL Total Bilirubin 1.0 (0.2-1.3) mg/dL AST 43 H (14-36) IU/L ALT 54 H (<35) IU/L Alkaline Phosphatase 158 H (38-126) U/L C-Reactive Protein (<1.0) mg/dL Total Protein 8.3 H (6.3-8.2) g/dL Albumin 4.3 (3.5-5.0) g/dL Globulin 4.0 (1.7-4.1) g/dL Albumin/Globulin Ratio 1.1 (1.0-2.8) Procalcitonin 0.37 (<0.5) ng/mL 11/10/21 Range/Units 13:15 WBC (4.5-11.0) X10^3/uL RBC (4.0-5.2) X10^6/uL Hgb (12.0-16.0) g/dL Hct (36-46) % MCV (80-100) fL MCH (26-34) PG MCHC (30-36) % RDW (11.6-14.8) % Plt Count (150-400) X10^3/uL Neut % (Auto) (50-75) % Lymph % (Auto) (25-40) % Harris % (Auto) (3-14) % Eos % (Auto) (2-4) % Baso % (Auto) (0-2) % Neut # (Auto) (6005-9591) /uL Lymph # (Auto) (6239-3411) /uL Harris # (Auto) (0-900) /uL Eos # (Auto) (0-450) /uL Baso # (Auto) (0-100) /uL ESR (0-20) MM/HR Sodium (137-145) mmol/L Potassium (3.4-5.1) mmol/L Chloride (98-107) mmol/L Carbon Dioxide (22-32) mmol/L BUN (7-17) mg/dL Creatinine (0.52-1.04) mg/dL Estimated GFR (>60) mL/min BUN/Creatinine Ratio (6-22) Glucose (80-110) mg/dL Lactate (0.7-2.1) mmol/L Calcium (8.4-10.2) mg/dL Total Bilirubin (0.2-1.3) mg/dL AST (14-36) IU/L ALT (<35) IU/L Alkaline Phosphatase (38-126) U/L C-Reactive Protein 24.4 H (<1.0) mg/dL Total Protein (6.3-8.2) g/dL Albumin (3.5-5.0) g/dL Globulin (1.7-4.1) g/dL Albumin/Globulin Ratio (1.0-2.8) Procalcitonin (<0.5) ng/mL Imaging Data Extremity x-ray #1: Radiologist's Impression: [address] [address] XRay Report Signed Patient: Marissa Parikh MR#: [id number] : 1950 Acct:[id number] Age/Sex: 70 / F Date of Service: 11/10/21 Loc: ED Accession Number: [id number] ?? Procedure: XR foot LT min 3V Ordering Provider: Adebayo Gunn P.A-C PROCEDURE:? XR FOOT LT MIN 3V ? INDICATIONS:? Infection L 4th toe ? TECHNIQUE:? 3 views of the foot were acquired.? ? COMPARISON:? None. ? FINDINGS:? ? Bones:? No fractures or dislocations.? There is slight irregularity of the distal 4th phalanx tuft. ? Soft tissues:? No tibiotalar joint effusion.? 4th digit edema is present.? Achilles tendon appears normal.? ? ? IMPRESSION:? Slight irregularly the 4th distal phalanx tuft with edema.? Developing osteomyelitis cannot be excluded. ? ? Dictated by: Roseline Marie M.D. on 11/10/2021 at 14:09 ? ? Approved by: Roseline Marie M.D. on 11/10/2021 at 14:10 ? [facility] Narrative Medical decision making narrative: This is a diabetic 70-year-old female presenting to the emergency department due to 2 weeks of left 4th toe infection. Lab work ordered which was remarkable for white count of 14 as well as elevated ESR. X-ray ordered which shows described irregularity to the left 4th toe although no definitive findings of osteomyelitis. Discussed the patient with Dr. Carlson, hospitalist, who place an order for MRI and spoke with the patient. Spoke w/ Dr. Carlson who kindly recommended cefepime, vancomycin, and admission. Bolus fluids given for patient's mildly elevated creatinine. <Romina Yanez, DO - Last Filed: 11/11/21 07:36> Lab Data Labs: Lab Results 11/10/21 11/10/21 11/10/21 Range/Units 13:15 13:15 13:15 WBC 14.0 H (4.5-11.0) X10^3/uL RBC 4.17 (4.0-5.2) X10^6/uL Hgb 12.9 (12.0-16.0) g/dL Hct 37.9 (36-46) % MCV 91.0 (80-100) fL MCH 31.0 (26-34) PG MCHC 34.0 (30-36) % RDW 13.1 (11.6-14.8) % Plt Count 319 (150-400) X10^3/uL Neut % (Auto) 83.1 H (50-75) % Lymph % (Auto) 10.1 L (25-40) % Harris % (Auto) 6.1 (3-14) % Eos % (Auto) 0.4 L (2-4) % Baso % (Auto) 0.3 (0-2) % Neut # (Auto) 57565 H (4062-8665) /uL Lymph # (Auto) 1400 (7582-2351) /uL Harris # (Auto) 900 (0-900) /uL Eos # (Auto) 100 (0-450) /uL Baso # (Auto) 0 (0-100) /uL ESR 38 H (0-20) MM/HR Sodium 136 L (137-145) mmol/L Potassium 4.0 (3.4-5.1) mmol/L Chloride 99 (98-107) mmol/L Carbon Dioxide 24 (22-32) mmol/L BUN 46 H (7-17) mg/dL Creatinine 1.31 H (0.52-1.04) mg/dL Estimated GFR 44 L (>60) mL/min BUN/Creatinine Ratio 35.1 H (6-22) Glucose 292 H (80-110) mg/dL Lactate 1.4 (0.7-2.1) mmol/L Calcium 9.5 (8.4-10.2) mg/dL Total Bilirubin 1.0 (0.2-1.3) mg/dL AST 43 H (14-36) IU/L ALT 54 H (<35) IU/L Alkaline Phosphatase 158 H (38-126) U/L C-Reactive Protein (<1.0) mg/dL Total Protein 8.3 H (6.3-8.2) g/dL Albumin 4.3 (3.5-5.0) g/dL Globulin 4.0 (1.7-4.1) g/dL Albumin/Globulin Ratio 1.1 (1.0-2.8) Procalcitonin 0.37 (<0.5) ng/mL 11/10/21 Range/Units 13:15 WBC (4.5-11.0) X10^3/uL RBC (4.0-5.2) X10^6/uL Hgb (12.0-16.0) g/dL Hct (36-46) % MCV (80-100) fL MCH (26-34) PG MCHC (30-36) % RDW (11.6-14.8) % Plt Count (150-400) X10^3/uL Neut % (Auto) (50-75) % Lymph % (Auto) (25-40) % Harris % (Auto) (3-14) % Eos % (Auto) (2-4) % Baso % (Auto) (0-2) % Neut # (Auto) (0607-7436) /uL Lymph # (Auto) (0202-9585) /uL Harris # (Auto) (0-900) /uL Eos # (Auto) (0-450) /uL Baso # (Auto) (0-100) /uL ESR (0-20) MM/HR Sodium (137-145) mmol/L Potassium (3.4-5.1) mmol/L Chloride (98-107) mmol/L Carbon Dioxide (22-32) mmol/L BUN (7-17) mg/dL Creatinine (0.52-1.04) mg/dL Estimated GFR (>60) mL/min BUN/Creatinine Ratio (6-22) Glucose (80-110) mg/dL Lactate (0.7-2.1) mmol/L Calcium (8.4-10.2) mg/dL Total Bilirubin (0.2-1.3) mg/dL AST (14-36) IU/L ALT (<35) IU/L Alkaline Phosphatase (38-126) U/L C-Reactive Protein 24.4 H (<1.0) mg/dL Total Protein (6.3-8.2) g/dL Albumin (3.5-5.0) g/dL Globulin (1.7-4.1) g/dL Albumin/Globulin Ratio (1.0-2.8) Procalcitonin (<0.5) ng/mL Discharge Plan Departure Patient Disposition: Admitted As Inpatient Clinical Impression: Wound, open, foot, Diabetes Admit Date/Time: 11/10/21 15:08 Admit Provider: Ganga Carlson <Romina Yanez DO - Last Filed: 11/11/21 07:36> Cosign ED Attending Blessing[employer] Attestation: I was immediately available in the department for consultation. Documentation has been reviewed. I agree with assessment and plan.
[2021-11-10 13:38] LABS: Add Manual Diff / Slide Review NO; Basophils Absolute Auto 0 /uL (0-100); Basophils Percent Auto 0.3 % (0-2); Eosinophils Absolute Auto 100 /uL (0-450); Eosinophils Percent Auto 0.4 % (2-4); Hematocrit 37.9 % (36-46); Hemoglobin 12.9 g/dL (12.0-16.0); Lymphocytes Absolute Auto 1400 /uL (1100-4500); Lymphocytes Percent Auto 10.1 % (25-40); Monocytes Absolute Auto 900 /uL (0-900); Monocytes Percent Auto 6.1 % (3-14); Neutrophils Absolute Auto 11700 /uL (1500-7000); Neutrophils Percent Auto 83.1 % (50-75); Platelet Count 319 X10^3/uL (150-400); Red Blood Cell Count 4.17 X10^6/uL (4.0-5.2); Red Cell Distribution Width 13.1 % (11.6-14.8)
[2021-11-10 13:43] LABS: Lactate (Lactic Acid) 1.4 mmol/L (0.7-2.1)
[2021-11-10 13:44] LABS: Alanine Aminotransferase 54 IU/L (<35); Albumin 4.3 g/dL (3.5-5.0); Albumin Globulin Ratio 1.1 (1.0-2.8); Alkaline Phosphatase 158 U/L (38-126); Aspartate Aminotransferase 43 IU/L (14-36); BUN Creatinine Ratio 35.1 (6-22); Blood Urea Nitrogen 46 mg/dL (7-17); Calcium 9.5 mg/dL (8.4-10.2); Carbon Dioxide 24 mmol/L (22-32); Chloride 99 mmol/L (98-107); Estimated Glomerular Filt Rate 44 mL/min (>60); Glucose 292 mg/dL (80-110); HEMOLYSIS < 15 (0-50); Sodium 136 mmol/L (137-145); Total Protein 8.3 g/dL (6.3-8.2)
[2021-11-10 13:57] LABS: Erythrocyte Sedimentation Rate 38 MM/HR (0-20)
[2021-11-10 14:01] LABS: Procalcitonin 0.37 ng/mL (<0.5)
--- NOTE | 2021-11-10 15:15 | DI.MRI.S_ITS ---
PROCEDURE: MR FOOT LT WO/W CON INDICATIONS: possible osteomyelitis, L 4th toe infection TECHNIQUE: Noncontrast sagittal T1 spin echo and T2 fast spin echo with fat saturation, long-axis T1 spin echo and T2 fast spin echo with fat saturation; short-axis T1 spin echo, proton density fast spin echo, and T2 fast spin echo with fat saturation through the forefoot. Post-contrast short axis, long axis, and sagittal T1 spin echo with fat saturation through the forefoot. COMPARISON: [facility], CR, XR FOOT LT MIN 3V, 11/10/2021, 13:43. FINDINGS: Image quality: Excellent. Bones and joints: There is osseous edema and enhancement within the 4th proximal and middle phalanges with decreased signal intensity on noncontrast T1-weighted images. The remaining visualized osseous structures are normal in signal intensity. Scattered degenerative changes are seen at the interphalangeal joints of the toes as well as at the 1st metatarsophalangeal joint and the 4th and 5th tarsometatarsal joints. Soft tissues: Soft tissue edema and enhancement are seen within the 4th toe. A small amount of nonenhancing fluid measuring 11 x 7 x 10 mm is seen surrounding the 4th proximal interphalangeal joint that may represent a soft tissue abscess or septic arthritis. There is diffuse fatty infiltration of the intrinsic foot musculature. The visualized flexor and extensor tendons are grossly intact. The principal Lisfranc ligament appears intact. Sagittal images demonstrate no evidence for plantar plate tears. IMPRESSION: 1. Soft tissue edema and enhancement within the 4th toe is suspicious for cellulitis. Fluid surrounding the 4th proximal interphalangeal joint may represent a small abscess or septic arthritis. 2. Osseous edema and enhancement in the 4th proximal and middle phalanges adjacent to the proximal interphalangeal joint is suspicious for osteomyelitis. Dictated by: Isidro Vela M.D. on 11/10/2021 at 16:06 Approved by: Isidro Vela M.D. on 11/10/2021 at 16:14
--- NOTE | 2021-11-10 15:26 | P.HP_ITS ---
History of Present Illness History of Present Illness Date Patient Seen: 11/10/21 Time Patient Seen: 14:00 Chief complaint: Infected Lt Foot Narrative: This is a 70-year-old female with a past medical history of type 2 diabetes, hypertension, hyperlipidemia who presented with a worsening left foot infection for the past couple of days. 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 She received 10 day course of cephalexin which the patient stated improved her infection at least somewhat. She was recommended to see wound care but that had not happened yet, and she had been trying to do outpatient dressing changes. She noticed a worsening of her infection about 4 days ago with worsening redness. She also developed some generalized malaise, subjective fever but nothing measured, and decreased appetite. She denies any chest pain, palpitations, shortness of breath, or cough. In the emergency room, the patient was mildly hypertensive, but afebrile and the rest of her vital signs were unremarkable. Laboratory evaluation revealed mild leukocytosis with a WBC of 14.0. ESR was slightly elevated at 38. Chemistries revealed an elevated creatinine at 1.31, up from approximately a year ago when it was 0.9. Glucose was also elevated at 292. She had a mild transaminitis, CRP was markedly elevated at 24.4, and procalcitonin was 0.37. COVID-19 testing were negative. Foot x-ray revealed possible distal osteo, MRI was ordered for further evaluation. Patient was admitted for further management of left diabetic foot ulcer with cellulitis and possible osteomyelitis. Patient History Medical History (Updated 11/10/21 @ 18:00 by Ganga Carlson DO) Diabetes Hyperlipidemia Hypertension Surgical History (Updated 11/10/21 @ 18:05 by Ganga Carlson DO) H/O: hysterectomy History of cholecystectomy History of left knee replacement Family & Social History Family History (Updated 11/10/21 @ 18:00 by Ganga Carlson DO) Father Cancer Mother COPD (chronic obstructive pulmonary disease) Safety & Behavioral: Feels Safe in Current Yes Environment Been Physically Hurt or No Threatened By a Person Tobacco & Substance use: Smoking Status Former smoker Substance Use Type does not use Meds Home Medications and Allergies Home Medications Medication Instructions Recorded Confirmed Type dulaglutide 0.75 mg/0.5 mL 1 ea SUBCUT QWEEK 11/10/21 11/10/21 History subcutaneous pen injector (Trulicity) glipizide 10 mg tablet 1 tab PO BID 11/10/21 11/10/21 History ibuprofen 800 mg tablet 1 tab PO BID 11/10/21 11/10/21 History insulin aspart U-100 100 unit/mL See Rx Instructions .Route .COMPLEX 11/10/21 11/10/21 History (3 mL) subcutaneous pen (Novolog Flexpen U-100 Insulin aspart) insulin degludec 100 unit/mL (3 1 ea SUBCUT DAILY 11/10/21 11/10/21 History mL) subcutaneous pen (Tresiba FlexTouch U-100 insulin) lisinopril 20 1 tab PO DAILY 11/10/21 11/10/21 History mg-hydrochlorothiazide 12.5 mg tablet lovastatin 20 mg tablet 1 tab PO DAILY 11/10/21 11/10/21 History metformin 500 mg tablet,extended 1 tab PO BID 11/10/21 11/10/21 History release 24 hr Allergies Allergy/AdvReac Type Severity Reaction Status Date / Time codeine Allergy Severe ITCHING Verified 08/28/20 13:47 amoxicillin [From Augmentin] Allergy Verified 10/30/20 16:48 clavulanic acid Allergy Verified 10/30/20 16:48 [From Augmentin] unknown antibiotic Allergy Mild Uncoded 08/28/20 13:49 Review of Systems Review of Systems Narrative: All other systems reviewed with the patient and are negative unless otherwise stated. Exam Vital Signs (past 8 hours): - 11/10/21 12:45 Temperature 97 F L Pulse Rate 94 H Respiratory Rate 18 Blood Pressure 128/66 Pulse Oximetry 95 Oxygen Delivery Method Room Air Oxygen Delivery Method Room Air Narrative Exam Narrative: General:? Patient is well developed and well nourished, in no distress at this time though appears mildly fatigued. Sitting in ER stretcher. Obese with BMI 37.6. HEENT:? Normocephalic, atraumatic, extraocular muscles intact, oral pharynx is clear and mucous membranes are moist. Neck: supple and symmetric, trachea is midline, no cervical adenopathy. Negative for JVD Chest:? Normal AP diameter and contour without kyphoscoliosis, no tachypnea, equal chest rise bilaterally. Lungs:? CTA b/l no wheezing rhonchi or rales. Cardio:?RRR no m/r/g. Abdomen: S NT ND. Musculoskeletal:? Muscle strength and tone are equal within normal limits, no deformity. Extremities: No edema or joint effusions. No cyanosis or clubbing. Palpable PT pulse on the L but not palpable DP pulse. Skin:?L foot cellulitis along the dorsal aspect of her foot extending from her 4th digit. There is a deep ulcer of her left 4th toe corresponding to compression on her 5th toe. Difficult to discern if extends to bone on exam. There is no draining purulence that is visible. Neuro:? Alert and orientated x3,?no gross deficits noted of cranial nerves. Decreased sensation to bilateral lower extremities. Psych:? Patient has a well-kept appearance, appropriate affect, mental status attitude thought context and judgment are appropriate for age. Objective Labs Result Diagrams: 11/10/21 13:15 11/10/21 13:15 Labs: Laboratory Results - last 24 hr 11/10/21 11/10/21 11/10/21 13:15 13:15 13:15 WBC 14.0 H RBC 4.17 Hgb 12.9 Hct 37.9 MCV 91.0 MCH 31.0 MCHC 34.0 RDW 13.1 Plt Count 319 Neut % (Auto) 83.1 H Lymph % (Auto) 10.1 L [place] % (Auto) 6.1 Eos % (Auto) 0.4 L Baso % (Auto) 0.3 Neut # (Auto) 68511 H Lymph # (Auto) 1400 [place] # (Auto) 900 Eos # (Auto) 100 Baso # (Auto) 0 ESR 38 H Sodium 136 L Potassium 4.0 Chloride 99 Carbon Dioxide 24 BUN 46 H Creatinine 1.31 H Estimated GFR 44 L BUN/Creatinine Ratio 35.1 H Glucose 292 H Lactate 1.4 Calcium 9.5 Total Bilirubin 1.0 AST 43 H ALT 54 H Alkaline Phosphatase 158 H Total Protein 8.3 H Albumin 4.3 Globulin 4.0 Albumin/Globulin Ratio 1.1 Procalcitonin 0.37 Assessment & Plan Assessment & Plan narrative: 1. Left 4th toe diabetic foot ulcer with corresponding left foot cellulitis and possible osteomyelitis - MRI foot to further evaluate, depending on results consider orthopedic consultation for surgical management. XR shows possible osteomyelitis. - continue cefepime and vanco for empiric coverage of diabetic foot ulcer. - follow up culture results. Blood cultures requested in the ER. - ESR and CRP elevated 2. Type 2 diabetes - BMP on admit with glucose near 300. Takes multiple oral agents and long/short acting insulin. Hold oral agents for now. - Continue home tresiba (convert to lantus here) 28 U if no operative interventions. Decreased to lantus 20 units if OR planned. - continue sliding scale coverage and once meals are regular she will likely need meal time coverage, consider 7 U based on dietary changes here in the hospital for prandial coverage. - Check an A1c in the AM. - dietary consultation. 3. Hypertension - can resume home medications, hold lisinopril if OR planned. 4. Hyperlipidemia - continue home statin. Code: Full, as discussed with the patient, surrogate decision maker is the patient's son Dispo: Patient is admitted under inpatient status as her stay is expected to exceed 2 midnights DVT: Hold pending orthopedic consultations I have utilized all available immediate resources to obtain, update, or review the patient's current medications. COVID-19 COVID-19 status: Negative Time Spent With Patient Critical Care time: I spent a total of [] minutes of critical care time on this patient's care today; this time is exclusive of procedural time. Quality MIPS - Admit I confirm the patient?s Advance Care Plan is present, Code status is documented, Surrogate decision maker is in patient?s record [If Yes, STOP here]: Yes
[2021-11-10 15:44] LABS: C-Reactive Protein Quant 24.4 mg/dL (<1.0)
[2021-11-10] MEDS: CEFEPIME 2 GM in SODIUM CHLORIDE 0.9% 100 ML IV (16:00)
[2021-11-10 16:02] VITALS: BP 141/65; PULSE 94; RESP 18; TEMP 36.6; O2SAT 99
[2021-11-10 16:17] VITALS: O2SAT 95
[2021-11-10 16:20] VITALS: BMI 37.5
[2021-11-10 16:30] VITALS: BP 151/69; PULSE 92; RESP 14; TEMP 36.4; O2SAT 97
[2021-11-10 16:55] LABS: COVID19 -Nasal RAPID Negative (Negative)
[2021-11-10] MEDS: MORPHINE 2 MG/ML INJ IV (17:05)
[2021-11-10] MEDS: VANCOMYCIN 1,000 MG/200 ML PIGGYBACK 200 MG IV (17:40)
--- NOTE | 2021-11-10 18:43 | PM.HP.1 ---
History of Present Illness History of Present Illness Date Patient Seen: 11/10/21 Time Patient Seen: 18:00 Chief complaint: Infected Lt Foot Narrative: 70-year-old female with a history of chronic diabetes. She says she has been insulin dependent for about 15 years. She also has a history of neuropathy. She has a at least a 1 month or longer history of problems with her left foot. It is predominantly in the 4th toe. She has seen her primary care practitioner and she is also seen Dr. Jimenes who noted problems with diabetic foot ulcer on the fibula side of the 4th toe. She is already failed several courses of oral antibiotics. She notes over the last couple of days it has significantly worse she has increased pain. She also notes that she has had several episodes were she had kind of a purplish discoloration of the 4th toe. She noted worsening pain and came to the emergency room for evaluation. Orthopedic consultation was requested for evaluation of her toe. Patient History Medical History Diabetes Hyperlipidemia Hypertension Surgical History H/O: hysterectomy History of cholecystectomy History of left knee replacement Family & Social History Family History Father Cancer Mother COPD (chronic obstructive pulmonary disease) Social History: household members family Prior Living Arrangements House Safety & Behavioral: Feels Safe in Current Yes Environment Been Physically Hurt or No Threatened By a Person Tobacco & Substance use: Tobacco type cigarettes Smoking Status Former smoker alcohol intake never Substance Use Type does not use Meds Home Medications and Allergies Home Medications Medication Instructions Recorded Confirmed Type dulaglutide 0.75 mg/0.5 mL 1 ea SUBCUT QWEEK 11/10/21 11/10/21 History subcutaneous pen injector (Trulicity) glipizide 10 mg tablet 1 tab PO BID 11/10/21 11/10/21 History ibuprofen 800 mg tablet 1 tab PO BID 11/10/21 11/10/21 History insulin aspart U-100 100 unit/mL See Rx Instructions .Route .COMPLEX 11/10/21 11/10/21 History (3 mL) subcutaneous pen (Novolog Flexpen U-100 Insulin aspart) insulin degludec 100 unit/mL (3 1 ea SUBCUT DAILY 11/10/21 11/10/21 History mL) subcutaneous pen (Tresiba FlexTouch U-100 insulin) lisinopril 20 1 tab PO DAILY 11/10/21 11/10/21 History mg-hydrochlorothiazide 12.5 mg tablet lovastatin 20 mg tablet 1 tab PO DAILY 11/10/21 11/10/21 History metformin 500 mg tablet,extended 1 tab PO BID 11/10/21 11/10/21 History release 24 hr Allergies Allergy/AdvReac Type Severity Reaction Status Date / Time codeine Allergy Severe ITCHING Verified 08/28/20 13:47 amoxicillin [From Augmentin] Allergy Verified 10/30/20 16:48 clavulanic acid Allergy Verified 10/30/20 16:48 [From Augmentin] unknown antibiotic Allergy Mild Uncoded 08/28/20 13:49 Review of Systems Review of Systems Narrative: She notes that her sugars have been increased in comparison to previously. She is notes ongoing left foot pain. She has a history of neuropathy. She notes that she has not had high fevers or chills. She is having some difficulty getting around because of worsening foot pain. She denies a history of heart or lung problems. She has been feeling reasonably well. Exam Vital Signs (past 8 hours): - 11/10/21 12:45 11/10/21 16:02 11/10/21 16:30 Temperature 97 F L 98 F 97.5 F L Pulse Rate 94 H 94 H 92 H Respiratory Rate 18 18 14 Blood Pressure 128/66 141/65 H 151/69 H Pulse Oximetry 95 99 97 Oxygen Delivery Method Room Air Room Air Oxygen Flow Rate 0 11/10/21 16:17 Temperature Pulse Rate Respiratory Rate Blood Pressure Pulse Oximetry 95 Oxygen Delivery Method Room Air Oxygen Flow Rate Oxygen Delivery Method Room Air Oxygen Flow Rate 0 Narrative Exam Narrative: HEENT is T is benign she is alert she is oriented she is appropriate lungs are clear cor regular rate and rhythm, abdomen is benign, examination of the left lower extremity shows erythema on the dorsum of the foot, there is no specific focal crepitus. There is marked erythema and drainage from the 4th toe which is predominantly on the fibular side of the toe at the region of the PIP joint, there is slight decreased capillary refill in the toe. There is some pain with range of motion, there was also a small callus more proximally on the foot on the lateral aspect of the foot, there is no erythema on the plantar aspect in the region of the callus and no active drainage. She has significant decreased sensation throughout bilateral feet. Objective Labs Result Diagrams: 11/10/21 13:15 11/10/21 13:15 Labs: Laboratory Results - last 24 hr 11/10/21 11/10/21 11/10/21 13:15 13:15 13:15 WBC 14.0 H RBC 4.17 Hgb 12.9 Hct 37.9 MCV 91.0 MCH 31.0 MCHC 34.0 RDW 13.1 Plt Count 319 Neut % (Auto) 83.1 H Lymph % (Auto) 10.1 L [place] % (Auto) 6.1 Eos % (Auto) 0.4 L Baso % (Auto) 0.3 Neut # (Auto) 70639 H Lymph # (Auto) 1400 [place] # (Auto) 900 Eos # (Auto) 100 Baso # (Auto) 0 ESR 38 H Sodium 136 L Potassium 4.0 Chloride 99 Carbon Dioxide 24 BUN 46 H Creatinine 1.31 H Estimated GFR 44 L BUN/Creatinine Ratio 35.1 H Glucose 292 H Lactate 1.4 Calcium 9.5 Total Bilirubin 1.0 AST 43 H ALT 54 H Alkaline Phosphatase 158 H C-Reactive Protein Total Protein 8.3 H Albumin 4.3 Globulin 4.0 Albumin/Globulin Ratio 1.1 Procalcitonin 0.37 SARS-CoV-2 (PCR) 11/10/21 11/10/21 13:15 15:35 WBC RBC Hgb Hct MCV MCH MCHC RDW Plt Count Neut % (Auto) Lymph % (Auto) [place] % (Auto) Eos % (Auto) Baso % (Auto) Neut # (Auto) Lymph # (Auto) [place] # (Auto) Eos # (Auto) Baso # (Auto) ESR Sodium Potassium Chloride Carbon Dioxide BUN Creatinine Estimated GFR BUN/Creatinine Ratio Glucose Lactate Calcium Total Bilirubin AST ALT Alkaline Phosphatase C-Reactive Protein 24.4 H Total Protein Albumin Globulin Albumin/Globulin Ratio Procalcitonin SARS-CoV-2 (PCR) Negative X-rays show slight changes in the 4th toe the proximal phalanx and middle phalanx, no evidence of gas, MRI scan shows clear edematous changes in the 4th toe both the proximal phalanx and the middle phalanx. There is a small fluid collection but no large abscess, Assessment & Plan Assessment and plan (1) Wound, open, foot: Status: Acute (2) Diabetes: Status: Acute (3) Diabetic foot ulcer: Status: Acute Plan She has clear evidence of a diabetic foot ulcer with cellulitis of her foot. She has an ulcer on the fibular side of her 4th toe. She has already failed a course of oral antibiotics and some strategies to decrease the pressure on her toes with spacers. She was previously seen by Dr. Jimenes and referred to the [facility]. She has really not been able get in her follow-up the wound clinic. Clinically she is getting worse with a elevated white count. I told her I think that IV antibiotics are appropriate. We will see how she responds over the next 24-48 hours. If she fails to respond to the antibiotics she is potentially a candidate for amputation of her 4th toe. She does not have a severe abscess at this point and I do not think she needs emergent I and D. Time Spent With Patient Time with patient: less than 30 minutes Critical Care time: I spent a total of [] minutes of critical care time on this patient's care today; this time is exclusive of procedural time. Quality VTE Deep Vein Thrombosis/Pulmonary Embolism Present on Admission: No
--- NOTE | 2021-11-10 19:35 | PC.NURSE ---
Pt arrived to room this afternoon from ED at approximately 1500 IV antibiotics running cefepime and loading dose of vancomycin. She is A&Ox3 VSS, afebrile on RA. She is given prn morphine for 8/10 pain with good effect to L foot. Ortho Hospitalist at bedside this evening. MD at bedside evaluating patient and clears her for ADA diet. Ulcer to L 4th toe BRAN, odorous. no new orders at this time. Continuous monitoring.
[2021-11-10 20:17] VITALS: BP 122/45; PULSE 96; RESP 16; TEMP 36.9; O2SAT 95
[2021-11-10] MEDS: VANCOMYCIN 1,250 MG/250 ML PIGGYBACK 250 MG IV (20:19)
[2021-11-10] MEDS: ATORVASTATIN 20 MG TABLET PO (20:19)
[2021-11-10] MEDS: INSULIN LISPRO 100 UNIT/ML 3ML VIAL SUBCUT (21:16)
[2021-11-10] MEDS: INSULIN GLARGINE 100 UNIT/ML 3ML PEN 20 UNIT SUBCUT (21:17)
[2021-11-10 21:51] VITALS: O2SAT 95
[2021-11-10] MEDS: ACETAMINOPHEN 325 MG TABLET 975 MG PO (22:38)
[2021-11-11] VITALS (21 sets, daily range): BP systolic 115–165; BP diastolic 46–76; PULSE 84–119; RESP 14–20; TEMP 35.9–38.2; O2SAT 93–100; BMI 37.5
--- NOTE | 2021-11-11 | PATH_ITS ---
[facility] Accession Number: [id number] . 01 Material submitted: . toe - LEFT 4TH TOE . 01 Clinical history: . INFECTED LT FOOT . 01 Diagnosis: Left Fourth Toe, Amputation: Actively inflamed chronic ulcer of skin. Suppurative inflammation (abscess) of soft tissue. Changes consistent with acute osteomyelitis. Margins of resection appear viable. [facility] 11/16/2021 1347 Local . 01 Electronically signed: . Marissa Tracey MD, Pathologist NPI- [id number] . 01 Gross description: . Received in formalin in a specimen container labeled with the patient's name, medical record number, and left first toe, is a toe specimen amputated through the distal phalanx bone with attached nail that measures 3.3 x 1.7 x 1.3 cm in greatest dimension. The nail measures 0.7 x 0.3 cm. The skin is pale pink and epithelium is focally detached. The resection margin is entirely inked in blue. On lateral skin surface, there is a 0.7 x 0.3 x 0.3 cm in depth ulcerated depressed area. The area is 0.2 cm away from the closest resection margin. No other lesions are grossly identified on skin surface. The specimen is decalcified and serially sectioned to reveal centrally located bone surrounded by soft tissue. The veterans employment representative sections are submitted as follows: . A1: Cross-section of resection margin with closest relation to ulcerated area and ulcerated business area manager cross-section with bone surrounded by soft tissue. A2: Cross-section of the specimen, veterans employment representative. ([id number]) /V 11/16/2021 1346 Local . 01 Pathologist provided ICD-10: L97.509 . 01 CPT . 595589, [id number] Specimen Comment: A courtesy copy of this report has been sent to [phone] Performed at: 01 [facility] [address] [place] [address], [place], [place] [id number] MD Tony Saenz MD Phone: [phone]
[2021-11-11] MEDS: CEFEPIME 2 GM in SODIUM CHLORIDE 0.9% 100 ML IV ×2 (03:07→15:44)
[2021-11-11] MEDS: MORPHINE 2 MG/ML INJ IV ×3 (03:13→13:10)
[2021-11-11 06:28] LABS: Add Manual Diff / Slide Review NO; Basophils Absolute Auto 0 /uL (0-100); Basophils Percent Auto 0.4 % (0-2); Eosinophils Absolute Auto 100 /uL (0-450); Eosinophils Percent Auto 0.8 % (2-4); Hematocrit 30.9 % (36-46); Hemoglobin 10.7 g/dL (12.0-16.0); Lymphocytes Absolute Auto 1500 /uL (1100-4500); Lymphocytes Percent Auto 11.6 % (25-40); Mean Corpuscular HGB Conc 34.6 % (30-36); Mean Corpuscular Hemoglobin 31.2 PG (26-34); Mean Corpuscular Volume 90.2 fL (80-100); Monocytes Absolute Auto 900 /uL (0-900); Monocytes Percent Auto 7.4 % (3-14); Neutrophils Absolute Auto 10200 /uL (1500-7000); Neutrophils Percent Auto 79.8 % (50-75); Platelet Count 292 X10^3/uL (150-400); Red Blood Cell Count 3.43 X10^6/uL (4.0-5.2); White Blood Cell Count 12.7 X10^3/uL (4.5-11.0)
[2021-11-11 06:38] LABS: BUN Creatinine Ratio 39.6 (6-22); Blood Urea Nitrogen 36 mg/dL (7-17); Calcium 8.5 mg/dL (8.4-10.2); Carbon Dioxide 24 mmol/L (22-32); Chloride 103 mmol/L (98-107); Estimated Glomerular Filt Rate > 60 mL/min (>60); Glucose 177 mg/dL (80-110); HEMOLYSIS < 15 (0-50); Magnesium 2.1 mg/dL (1.6-2.3); Potassium 3.8 mmol/L (3.4-5.1); Sodium 133 mmol/L (137-145)
[2021-11-11] MEDS: INSULIN LISPRO 100 UNIT/ML 3ML VIAL SUBCUT (08:40)
[2021-11-11] MEDS: hydroCHLOROthiazide 25 MG TABLET 12.5 MG PO (08:41)
--- NOTE | 2021-11-11 10:11 | PM.PN.1 ---
Subjective Subjective Date Patient Seen: 11/11/21 Time Patient Seen: 10:11 Interval history: Resting comfortably in bed. Exam Vital Signs (past 8 hours): - 11/11/21 06:26 11/11/21 05:00 11/11/21 09:00 Temperature 98.8 F 97.9 F Pulse Rate 89 100 H Respiratory Rate 18 14 Blood Pressure 135/46 L 155/66 H Pulse Oximetry 95 95 97 Oxygen Delivery Method Room Air Oxygen Flow Rate 0 0 Oxygen Delivery Method Room Air Oxygen Flow Rate 0 Narrative Exam Narrative: There is marked erythema and exudate from the 4th toe which is predominantly on the fibular side of the toe, there is slight decreased capillary refill in the toe.? Erythema does not appear to extend past the dorsal midfoot. There is pain with range of motion, there was also a small callus more proximally on the foot on the lateral aspect of the foot, there is no erythema on the plantar aspect in the region of the callus and no active drainage.? She reports pain to light touch along the plantar surface of the foot. Objective Labs Result Diagrams: 11/11/21 06:11 11/11/21 06:11 Labs: Laboratory Results - last 24 hr 11/10/21 11/10/21 11/10/21 13:15 13:15 13:15 WBC 14.0 H RBC 4.17 Hgb 12.9 Hct 37.9 MCV 91.0 MCH 31.0 MCHC 34.0 RDW 13.1 Plt Count 319 Neut % (Auto) 83.1 H Lymph % (Auto) 10.1 L [place] % (Auto) 6.1 Eos % (Auto) 0.4 L Baso % (Auto) 0.3 Neut # (Auto) 49353 H Lymph # (Auto) 1400 [place] # (Auto) 900 Eos # (Auto) 100 Baso # (Auto) 0 ESR 38 H Sodium 136 L Potassium 4.0 Chloride 99 Carbon Dioxide 24 BUN 46 H Creatinine 1.31 H Estimated GFR 44 L BUN/Creatinine Ratio 35.1 H Glucose 292 H Lactate 1.4 Calcium 9.5 Magnesium Total Bilirubin 1.0 AST 43 H ALT 54 H Alkaline Phosphatase 158 H C-Reactive Protein Total Protein 8.3 H Albumin 4.3 Globulin 4.0 Albumin/Globulin Ratio 1.1 Procalcitonin 0.37 SARS-CoV-2 (PCR) 07/11/2511/10/21 11/11/21 13:15 15:35 06:11 WBC 12.7 H RBC 3.43 L Hgb 10.7 L Hct 30.9 L MCV 90.2 MCH 31.2 MCHC 34.6 RDW 13.0 Plt Count 292 Neut % (Auto) 79.8 H Lymph % (Auto) 11.6 L [place] % (Auto) 7.4 Eos % (Auto) 0.8 L Baso % (Auto) 0.4 Neut # (Auto) 03267 H Lymph # (Auto) 1500 [place] # (Auto) 900 Eos # (Auto) 100 Baso # (Auto) 0 ESR Sodium Potassium Chloride Carbon Dioxide BUN Creatinine Estimated GFR BUN/Creatinine Ratio Glucose Lactate Calcium Magnesium Total Bilirubin AST ALT Alkaline Phosphatase C-Reactive Protein 24.4 H Total Protein Albumin Globulin Albumin/Globulin Ratio Procalcitonin SARS-CoV-2 (PCR) Negative 11/11/21 06:11 WBC RBC Hgb Hct MCV MCH MCHC RDW Plt Count Neut % (Auto) Lymph % (Auto) [place] % (Auto) Eos % (Auto) Baso % (Auto) Neut # (Auto) Lymph # (Auto) [place] # (Auto) Eos # (Auto) Baso # (Auto) ESR Sodium 133 L Potassium 3.8 Chloride 103 Carbon Dioxide 24 BUN 36 H Creatinine 0.91 Estimated GFR > 60 BUN/Creatinine Ratio 39.6 H Glucose 177 H D Lactate Calcium 8.5 Magnesium 2.1 Total Bilirubin AST ALT Alkaline Phosphatase C-Reactive Protein Total Protein Albumin Globulin Albumin/Globulin Ratio Procalcitonin SARS-CoV-2 (PCR) [facility] Medical History Diabetes Hyperlipidemia Hypertension Surgical History H/O: hysterectomy History of cholecystectomy History of left knee replacement Family History Father Cancer Mother COPD (chronic obstructive pulmonary disease) Social History household members: family Smoking Status: Former smoker alcohol intake: never Assessment & Plan Assessment and plan (1) Diabetic foot ulcer: Status: Acute Plan: IV vancomycin continues, WBC down slightly today, pictures of foot taken and sent to Dr Stuart. Will discuss w/ Dr Stuart watchful waiting w/ IV antibiotics vs 4th toe amputation. Time Spent With Patient Critical Care time: I spent a total of [] minutes of critical care time on this patient's care today; this time is exclusive of procedural time. Quality VTE Deep Vein Thrombosis/Pulmonary Embolism Present on Admission: No
[2021-11-11] MEDS: ONDANSETRON 4 MG/2 ML INJ IV (13:57)
--- NOTE | 2021-11-11 14:34 | CM.DPNOTE ---
Initial DCP Assessment Note Met w/patient to introduce self and role. 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 Patient typically indp and active, has had to use cane vs walker lately d/t pain in her feet/toe CM team will plan to follow closely for coordination of any DC needs or concerns that may arise JW
--- NOTE | 2021-11-11 16:15 | P.PN_ITS ---
Subjective Subjective Date Patient Seen: 11/11/21 Interval history: Complained of worsening pain today in her foot. Generally does not feel well. She is now planned for 4th toe amputation today with orthopedics. Exam Vital Signs (past 8 hours): - 11/11/21 09:00 11/11/21 10:00 11/11/21 13:00 Temperature 97.9 F 98.1 F Pulse Rate 100 H 104 H Respiratory Rate 14 14 Blood Pressure 155/66 H 165/76 H Pulse Oximetry 97 97 100 Oxygen Delivery Method Room Air Oxygen Flow Rate 0 0 11/11/21 14:00 Temperature Pulse Rate Respiratory Rate Blood Pressure Pulse Oximetry 95 Oxygen Delivery Method Room Air Oxygen Flow Rate Oxygen Delivery Method Room Air Oxygen Flow Rate 0 Narrative Exam Narrative: General:? Patient is well developed and well nourished, in no distress at this time though appears mildly fatigued. Obese with BMI 37.6. HEENT:? Normocephalic, atraumatic, extraocular muscles intact, oral pharynx is clear and mucous membranes are moist. Neck: supple and symmetric, trachea is midline, no cervical adenopathy. Negative for JVD Chest:? Normal AP diameter and contour without kyphoscoliosis, no tachypnea, equal chest rise bilaterally. Lungs:? CTA b/l no wheezing rhonchi or rales. Cardio:?RRR no m/r/g. Abdomen: S NT ND. Musculoskeletal:? Muscle strength and tone are equal within normal limits, no deformity. Extremities: No edema or joint effusions. No cyanosis or clubbing. Palpable PT pulse on the L but not palpable DP pulse. Skin:?L foot cellulitis along the dorsal aspect of her foot extending from her 4th digit. There is a deep ulcer of her left 4th toe corresponding to compression on her 5th toe. There is no draining purulence that is visible. Neuro:? Alert and orientated x3,?no gross deficits noted of cranial nerves. Decreased sensation to bilateral lower extremities. Psych:? Patient has a well-kept appearance, appropriate affect, mental status attitude thought context and judgment are appropriate for age. Objective Labs Result Diagrams: 11/11/21 06:11 11/11/21 06:11 Labs: Laboratory Results - last 24 hr 11/10/21 11/11/21 11/11/21 15:35 06:11 06:11 WBC 12.7 H RBC 3.43 L Hgb 10.7 L Hct 30.9 L MCV 90.2 MCH 31.2 MCHC 34.6 RDW 13.0 Plt Count 292 Neut % (Auto) 79.8 H Lymph % (Auto) 11.6 L [place] % (Auto) 7.4 Eos % (Auto) 0.8 L Baso % (Auto) 0.4 Neut # (Auto) 27378 H Lymph # (Auto) 1500 [place] # (Auto) 900 Eos # (Auto) 100 Baso # (Auto) 0 Sodium 133 L Potassium 3.8 Chloride 103 Carbon Dioxide 24 BUN 36 H Creatinine 0.91 Estimated GFR > 60 BUN/Creatinine Ratio 39.6 H Glucose 177 H D Calcium 8.5 Magnesium 2.1 SARS-CoV-2 (PCR) Negative PFSH Medical History Diabetes Hyperlipidemia Hypertension Surgical History H/O: hysterectomy History of cholecystectomy History of left knee replacement Family History Father Cancer Mother COPD (chronic obstructive pulmonary disease) Social History household members: family Smoking Status: Former smoker alcohol intake: never Assessment & Plan Assessment & Plan narrative: 1. Left 4th toe diabetic foot ulcer with corresponding left foot cellulitis and osteomyelitis - MRI foot revealed probable osteomyelitis, plan with orthopedics today for toe amputation. Appreciate their assistance with management. - continue cefepime and vanco for empiric coverage of diabetic foot ulcer for now. - culture with group B strep, suspect this is just skin shandra. Follow up blood cultures, no growth thus far. - ESR and CRP elevated 2. Type 2 diabetes - BMP on admit with glucose near 300. Takes multiple oral agents and long/short acting insulin. Hold oral agents for now. - Continue long and short acting insulin when on diet. - continue sliding scale coverage and once meals are regular she will likely need meal time coverage, consider 7 U based on dietary changes here in the hospital for prandial coverage. - Check an A1c - dietary consultation. 3. Hypertension - can resume home medications, hold lisinopril if OR planned. 4. Hyperlipidemia - continue home statin. Code: Full, as discussed with the patient, surrogate decision maker is the patient's son Dispo: Patient is admitted under inpatient status as her stay is expected to exceed 2 midnights DVT: Hold for now , resume after OR. I have utilized all available immediate resources to obtain, update, or review the patient's current medications. COVID-19 COVID-19 status: Negative Time Spent With Patient Critical Care time: I spent a total of [] minutes of critical care time on this patient's care today; this time is exclusive of procedural time. Quality VTE Deep Vein Thrombosis/Pulmonary Embolism Present on Admission: No
[2021-11-11] MEDS: LACTATED RINGERS 1,000 ML 42 ML IV (16:56)
[2021-11-11] MEDS: VANCOMYCIN 1,750 MG in SODIUM CHLORIDE 0.9% 500 ML 250 MG IV (16:58)
--- NOTE | 2021-11-11 17:51 | SUR.OPER ---
Supine on padded OR bed, head on pillow, arms secured on padded arm boards at <90 degrees abduction, legs uncrossed, safety belt at thigh, tape over blanket over lower legs.
--- NOTE | 2021-11-11 18:25 | P.OP_ITS ---
Operative Date/Time/Diagnoses Date of procedure: 11/11/21 Time of procedure: 17:20 Pre-op diagnosis: Left foot diabetic foot ulcer with a necrotic 4th toe Post-op diagnosis: same Procedure & Clinicians Procedure: Left 4th toe amputation Same procedure as scheduled: Yes Indications: Is a 70-year-old female with a history of diabetes and severe peripheral neuropathy was admitted with a diabetic foot ulcer and decreased capillary refill to the 4th toe. She had clear evidence of a significant diabetic foot ulcer. She was placed on IV antibiotics. Her infection failed to respond to initial IV antibiotics and her 4th toe became more dusky and necrotic. She is brought the operating room for an amputation of her left 4th toe. Surgeon: Lilliana Stuart Click Yes if Unassisted: Yes Anesthesia Type: General Operative Notes Findings: Necrotic left 4th toe, quite dusky, clear evidence of osteomyelitis with significant destruction of the proximal phalanx of the 4th toe, some tracking proximally of the pus on the dorsum and plantar aspect of her foot. Nonviable 4th toe. Some capillary refill and bleeding at the surgical skin incision line. Closure Type: not applicable Specimen(s): other (Toe 4th sent to pathology + deep cultures and a piece of proximal phalanx for a bone culture.) Estimated Blood Loss (mL): 20 Blood products transfused: none Procedure in detail: Patient brought to the operating room she underwent induction of a general ane sthesia. She was carefully transferred to the OR table. Her left lower extremities prepped draped standard sterile fashion. A time-out was performed. A tourniquet was applied but not elevated. Her 4th toe appear dusky with decreased circulation with an open wound on the rib fibular side of her toe. It clearly appeared nonviable. An elliptical incision was made around the toe and it was extended on the dorsum of the foot. Dissection was carried out to skin and subcutaneous tissues. Gross purulent material was encountered on the dorsum of the foot along the extensor tendon. Deep cultures were sent. The 4th toe was amputated with MTP disarticulation. There was significant softening of the proximal phalanx of the 4th toe. The piece of bone was sent for specific bone culture. The toe was carefully held but still the bone was noted to be soft and crumbly. The toe was removed in its entirety. Both the extensor and flexor tendon were carefully shortened after pulling them distally. The wound was meticulously irrigated with normal saline. There was no residual pus. Quarter- inch Nu Gauze was carefully packed into both the dorsum and plantar aspect of the foot. The skin edge appeared viable with some capillary refill. The wound was dressed sterilely but with 4x4s Kerlix and bias cut stockinette. Patient tolerated the procedure well. She was transferred recovery room in satisfactory condition. Complications none. Plan you IV antibiotics. Complications: none Post-operative Condition: stable Disposition: Acute Care Plan for aftercare: Continue IV antibiotics for at least 48 hours. Remove packing from the toe on Sunday and do wound check. Possible discharge to home Sunday or Sunday on oral antibiotics if she is responding well to IV antibiotics and her wound is healing. Check culture results.
--- NOTE | 2021-11-11 19:07 | SUR.PHASEI ---
1830: Pt A&Ox4, denies pain or any distress, dressing intact with small amt of bright red drainage noted. Post op POC BG 151, verified with primary RN Katya to hold insulin as pt has been NPO. Made Dr. Santamaria aware who agreed. Lab was notified that STAT draw needs to be done on pt per OR request. Pt VSS and ready to transfer to room. Report given to Katya RN using SBAR and time allowed for questions. This RN transported pt to room 210 and bedside handoff given to receiving RN.
--- NOTE | 2021-11-11 19:45 | PC.NURSE ---
Pt is A&Ox3, VSS, afebrile. She is NPO since noon today. BG 220 (held insulin due to NPO status) pt is transported to Preop at approximately 1630 and returns from Pac[facility] at 1845. She is settled in to room, bandage to foot c/d/i VSS, afebrile on RA. She has IV vanco running currently and denies n/v. Endorsed report to oncoming RN.
[2021-11-11 19:55] LABS: Alanine Aminotransferase 79 IU/L (<35)
[2021-11-11] MEDS: IBUPROFEN 400 MG TABLET 800 MG PO (20:44)
[2021-11-11] MEDS: ATORVASTATIN 20 MG TABLET PO (20:45)
[2021-11-11] MEDS: METFORMIN XR 500 MG TABLET PO (20:45)
[2021-11-11] MEDS: ASPIRIN EC 81 MG TABLET PO (20:45)
[2021-11-11] MEDS: glipiZIDE 5 MG TABLET 10 MG PO (20:45)
[2021-11-11 21:54] LABS: Hepatitis B Surface Antigen NEGATIVE s/c (NEGATIVE)
[2021-11-11 21:55] LABS: HIV 1 & 2 Ab/Ag 4th Gen Combo NEGATIVE (NEGATIVE); Hep C Virus Ab w/Reflex Quant NEGATIVE s/c (NEGATIVE)
[2021-11-12] VITALS (12 sets, daily range): BP systolic 107–135; BP diastolic 42–64; PULSE 80–94; RESP 16–18; TEMP 36.1–36.5; O2SAT 93–98
[2021-11-12] MEDS: hydrOXYzine pamoate 25 MG CAPSULE PO (02:00)
[2021-11-12] MEDS: ACETAMINOPHEN 325 MG TABLET 975 MG PO ×2 (02:00→10:59)
[2021-11-12] MEDS: CEFEPIME 2 GM in SODIUM CHLORIDE 0.9% 100 ML IV (02:03)
--- NOTE | 2021-11-12 05:35 | PC.NURSE ---
Patient slept most of the shift. Up a few times with minimal assist to bsc. Drsg to left foot w/small amount of bloody drainage. Pain has been controlled well w/Tylenol and ibuprofen. Patient has been A&O, calm and cooperative.
[2021-11-12 06:19] LABS: Add Manual Diff / Slide Review NO; Basophils Absolute Auto 100 /uL (0-100); Basophils Percent Auto 0.6 % (0-2); Eosinophils Absolute Auto 100 /uL (0-450); Eosinophils Percent Auto 1.1 % (2-4); Hematocrit 30.3 % (36-46); Hemoglobin 10.3 g/dL (12.0-16.0); Lymphocytes Absolute Auto 1700 /uL (1100-4500); Mean Corpuscular HGB Conc 34.1 % (30-36); Mean Corpuscular Hemoglobin 30.8 PG (26-34); Mean Corpuscular Volume 90.2 fL (80-100); Monocytes Absolute Auto 900 /uL (0-900); Monocytes Percent Auto 7.2 % (3-14); Neutrophils Absolute Auto 9400 /uL (1500-7000); Neutrophils Percent Auto 77.1 % (50-75); Platelet Count 310 X10^3/uL (150-400); Red Blood Cell Count 3.35 X10^6/uL (4.0-5.2); Red Cell Distribution Width 12.9 % (11.6-14.8); White Blood Cell Count 12.1 X10^3/uL (4.5-11.0)
[2021-11-12 06:34] LABS: BUN Creatinine Ratio 25.6 (6-22); Blood Urea Nitrogen 32 mg/dL (7-17); Calcium 8.6 mg/dL (8.4-10.2); Carbon Dioxide 25 mmol/L (22-32); Chloride 104 mmol/L (98-107); Estimated Glomerular Filt Rate 47 mL/min (>60); Glucose 184 mg/dL (80-110); HEMOLYSIS < 15 (0-50); Magnesium 2.3 mg/dL (1.6-2.3); Potassium 4.6 mmol/L (3.4-5.1); Sodium 134 mmol/L (137-145)
[2021-11-12 06:39] LABS: Hemoglobin A1C% w Est Avg Glu 8.9 % (4.0-6.0)
[2021-11-12] MEDS: INSULIN LISPRO 100 UNIT/ML 3ML VIAL SUBCUT ×4 (08:45→21:56)
[2021-11-12] MEDS: METFORMIN XR 500 MG TABLET PO ×2 (08:47→21:58)
[2021-11-12] MEDS: hydroCHLOROthiazide 25 MG TABLET 12.5 MG PO (08:47)
[2021-11-12] MEDS: ASPIRIN EC 81 MG TABLET PO ×2 (08:47→21:59)
[2021-11-12] MEDS: glipiZIDE 5 MG TABLET 10 MG PO ×2 (08:47→21:57)
[2021-11-12] MEDS: IBUPROFEN 400 MG TABLET 800 MG PO ×2 (08:47→21:58)
--- NOTE | 2021-11-12 08:55 | PM.PNPO.1 ---
Subjective Subjective Date Patient Seen: 11/12/21 Time Patient Seen: 08:55 Interval history: Sitting up in chair, feeling well. Weight bearing on heel to stabilize and pivot, which is fine. Intraoperative cultures pending. Exam Vital Signs (past 8 hours): - 11/12/21 05:19 11/12/21 05:36 11/12/21 08:52 Temperature 96.9 F L Pulse Rate 80 84 Respiratory Rate 18 Blood Pressure 114/51 L 119/54 L Pulse Oximetry 98 95 Oxygen Delivery Method Room Air Oxygen Flow Rate 0 Oxygen Delivery Method Room Air Oxygen Flow Rate 0 Narrative Exam Narrative: Dressing intact, able to move 1st, 2nd, third toes without difficulty, sensation to touch intact. Calf soft and compressible. Objective Labs Result Diagrams: 11/12/21 06:07 11/12/21 06:07 Labs: Laboratory Results - last 24 hr 11/11/21 11/11/21 11/12/21 19:20 19:20 06:07 WBC 12.1 H RBC 3.35 L Hgb 10.3 L Hct 30.3 L MCV 90.2 MCH 30.8 MCHC 34.1 RDW 12.9 Plt Count 310 Neut % (Auto) 77.1 H Lymph % (Auto) 14.0 L [place] % (Auto) 7.2 Eos % (Auto) 1.1 L Baso % (Auto) 0.6 Neut # (Auto) 9400 H Lymph # (Auto) 1700 [place] # (Auto) 900 Eos # (Auto) 100 Baso # (Auto) 100 Sodium Potassium Chloride Carbon Dioxide BUN Creatinine Estimated GFR BUN/Creatinine Ratio Glucose Hemoglobin A1c Calcium Magnesium ALT 79 H Hep Bs Antigen Negative Hepatitis C Antibody Negative HIV 1&2 Ab/P24 Ag 4thGn Negative 11/12/21 11/12/21 06:07 06:07 WBC RBC Hgb Hct MCV MCH MCHC RDW Plt Count Neut % (Auto) Lymph % (Auto) [place] % (Auto) Eos % (Auto) Baso % (Auto) Neut # (Auto) Lymph # (Auto) [place] # (Auto) Eos # (Auto) Baso # (Auto) Sodium 134 L Potassium 4.6 Chloride 104 Carbon Dioxide 25 BUN 32 H Creatinine 1.25 H Estimated GFR 47 L BUN/Creatinine Ratio 25.6 H Glucose 184 H Hemoglobin A1c 8.9 H Calcium 8.6 Magnesium 2.3 ALT Hep Bs Antigen Hepatitis C Antibody HIV 1&2 Ab/P24 Ag 4thGn [facility] Medical History Diabetes Hyperlipidemia Hypertension Surgical History H/O: hysterectomy History of cholecystectomy History of left knee replacement Family History Father Cancer Mother COPD (chronic obstructive pulmonary disease) Social History household members: family Smoking Status: Former smoker alcohol intake: never Assessment & Plan Post-op Assessment and plan (1) Diabetic foot ulcer: Assessment and Plan narrative: Continue IV antibiotics for at least 48 hours.? Remove packing from the toe on Sunday and do wound check.? Possible discharge to home Sunday or Sunday on oral antibiotics if she is responding well to IV antibiotics and her wound is healing.? PT today, okay to bear weight on left heel. Postoperative Procedures: Procedures Operation Date: 11/11/21 17:00 Actual Procedure Side Surgeon p Amputation of 4th digit foot Left Lilliana Stuart MD Postoperative day: 1 Quality VTE Deep Vein Thrombosis/Pulmonary Embolism Present on Admission: No
--- NOTE | 2021-11-12 10:15 | PT.IIE ---
Current Diagnoses Type 2 diabetes mellitus with foot ulcer (11/10/21) Type 2 diabetes mellitus without complications (11/10/21) Non-pressure chronic ulcer of other part of unspecified foot with unspecified severity (11/10/21) Unspecified open wound, unspecified foot, initial encounter (11/10/21) Surgery Performed Operation Date: 11/11/21 17:00 Actual Procedures p Amputation of 4th digit foot(Left) - Lilliana Galarza MD Surgical History (Last Reviewed 11/10/21 @ 18:45 by Lilliana Galarza MD) H/O: hysterectomy History of cholecystectomy History of left knee replacement Medical History (Last Reviewed 11/10/21 @ 18:45 by Lilliana Galarza MD) Diabetes Hyperlipidemia Hypertension Physical Therapy Inpatient Evaluation/Re-Eval M1 PT/OT-IP Prior Functional Status Start: 11/12/21 13:03 Freq: NEEDED Status: Active Protocol: Document 11/12/21 10:15 AB (Rec: 11/12/21 13:21 AB [id number]) Medical Review Prior Functional Status Medical History Reviewed Yes Communication able to make needs known Mobility and Gait pt stated that she is modified independent with all mobilities and ambulation without AD indoors but tends to furniture cruise; uses SPC for outdoor mobility Social History Household Members family Living Arrangements House Number of Floors (Floors) One Floor Number of Stairs To Enter/Railing? 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 M2 PT-IP Current Condition Start: 11/12/21 13:03 Freq: NEEDED Status: Active Protocol: Document 11/12/21 10:15 AB (Rec: 11/12/21 13:21 AB [id number]) Physical Therapy Current Condition Current Condition Evaluation Date 11/12/21 Treatment Diagnosis s/p L 4th toe amputation; difficulty in walking Onset Date 11/10/21 M3 PT-IP Subjective Start: 11/12/21 13:03 Freq: NEEDED Status: Active Protocol: Document 11/12/21 10:15 AB (Rec: 11/12/21 13:21 AB [email or web address]) Subjective Physical Therapy Visit Type Type Initial Evaluation Visit Start Time 10:15 Visit Stop Time 10:46 Total Visit Minutes 31 Notes EMR reviewed and per post-op note: pt is ok with heel weight bearing. talked with Pattie JENKINS for weight bearing order and front off loading post-op shoe order. Number of SUSTAINABLE AGRICULTURE SPECIALIST Visits 0 Physical Therapy Visit Comments Patient Comments agreed to do PT Therapy Pain Assessment Pain Present Pain Present Denied Pain M4 PT-IP Mobility and Gait Start: 11/12/21 13:03 Freq: NEEDED Status: Active Protocol: Document 11/12/21 10:15 AB (Rec: 11/12/21 13:21 AB [id number]) PT-Bed Mobility Assessment Supine to Sit Supine to Sit Moderate Assistance,Maximum Assistance Sit to Supine Sit to Supine Standby Assistance PT-Transfer Assessment Sit to and From Stand Sit to and from Stand Contact Guard Assistance,1 Person Assistance,Use of Upper Extremities Equipment Transfer Assistive Device Gait Belt,Front Wheeled Walker Orthotic/Prosthetic Devices or Brace: Yes Comments Mobility Comments Clarified weight bearing restriction with ortho PA Pattie Wesley: heel weight bearing on LLE and agreed with front off loading post-op shoe. Order received. pt agreed to do PT and aware of weight bearing restriction and agreed with post-op shoe. pt completed supine to sit max A and max cues. pt stated that she usually rocks her body up/down to get her to a sitting position (edy knifing her trunk to sit up). attempted but unable to complete. educated pt on safety and log roll technique for safety bed mobility. completed log roll bed mobility max A and cues. PT demonstrated and educated pt on technique. pt completed sit to supine SBA. completed supine to sit again with log roll technique mod A and cues. Assisted pt with donning of post-op shoe. pt with previous standard post-op shoe and prefer to use on RLE than regular shoe. off loading shoe donned on LLE. completed sit to stand CGA and ambulated in room ~ 25 ft CGA to min A and cues using FWW. decrease LE elevation, antalgic gait and decrease step length. pt unable to tolerate much activity. went back to bed. completed sit to supine SBA. positioned in bed. Dr. galarza came in. Left pt with the doctor. call light and table placed within reach. Gait Assessment Gait Gait Assistance Required: Contact Guard Assist,Minimum Assistance,1 Person Assist Distance (Feet) 25 Able to Maintain Weight Bearing Status Yes During Gait Assistive Devices Assistive Device Gait Belt,Front Wheeled Walker Orthotic/Prosthetic Devices or Brace: No Gait Deviations General Gait Pattern Decreased Stride Length, Decreased Feet Clearance,Step- to Gait Factors Limiting Gait Function Factors Limiting Gait Function Decreased Activity Tolerance, Decreased Strength,Limited Range of Motion,Pain,Poor Balance,Poor Safety Awareness PT-Balance Assessment Sitting Balance and Reactions Static Sitting Balance Ability Normal Dynamic Sitting Balance Ability Good Standing Balance and Reactions Static Standing Balance Ability Fair Dynamic Standing Balance Ability Fair Device Used FWW M5 PT-IP Objective Assessments Start: 11/12/21 13:03 Freq: NEEDED Status: Active Protocol: Document 11/12/21 10:15 AB (Rec: 11/12/21 13:21 AB [email or web address]) Orientation Orientation/Cognition Level of Alertness Alert Orientation Name,Place,Situation Language Function Ability Hard of Hearing Safety Awareness Decreased Safety Awareness Memory Description No Deficits Noted Gross Range of Motion Lower Extremity ROM Assessment Within Functional Limits Strength Lower Extremity Strength Hip 4-/5 Knee 4-/5 Muscle Tone Muscle Tone WNL Yes M6 PT-IP Treatment Start: 11/12/21 13:03 Freq: NEEDED Status: Active Protocol: Document 11/12/21 10:15 AB (Rec: 11/12/21 13:21 AB [email or web address]) Physical Therapy Treatment Education Education Provided Weight Bearing Status,Safety Equipment Issued Equipment Type and Company front off loading post-op shoe provided: pt signed paper M7 PT-IP Assessment and Plan Start: 11/12/21 13:03 Freq: NEEDED Status: Active Protocol: Document 11/12/21 10:15 AB (Rec: 11/12/21 13:21 AB [email or web address]) PT Summary Assessment and Plan Potential Rehabilitation Potential Fair Status of Condition at Evaluation Evolving Summary Impairments Pain,ROM,Strength,Balance, Coordination,Sensation,Tone, Cognition,Bed Mobility, Transfers,Gait,Activity Tolerance Assessment Summary pt requiring CGA to min A with ambulation using FWW. pt with weight bearing restriction of heel weight bearing only on LLE. pt plans to go home with sister to assist but limited due to her sister going to work. Pt will need assistance at home and will need home health services . will continue to assess progress. pt also will complete stair climbing training prior to d/c. Goals Bed Mobility Goal Standby Assistance Transfer Goal Standby Assistance,Front Wheeled Walker Gait Goal Standby Assistance,Front Wheel Walker Gait Distance 150 Other Goals up/down 4 steps L rail ascending SBA Days to Meet Goals 10 Frequency of Treatment Frequency Of Treatment Once a Day Treatment Plan Physical Therapy Treatment Plan Bed Mobility Training,Transfer Training,Gait Training, Therapeutic Exercise,Balance Retraining,Post Op Education, Discharge Planning,Hot or Cold Pack,Neuromuscular Re-ed, Coordination Retraining,Manual Therapy Weight Bearing Status Weight Bearing Status Non-Weight Bearing Allowed Weight Bearing Amount (enter % LLE: heel weight bearing only or #) (%) Recommendations To Nursing Amount of Assist Needed 1 Person Assist Discharge Recommendations PT Discharge Recommendations Home with Assistance,Home Health Transportation Needs at Discharge Private Vehicle
[2021-11-12] MEDS: OXYCODONE IR 5 MG TABLET PO ×2 (10:58→21:58)
--- NOTE | 2021-11-12 11:41 | PM.PN.1 ---
Subjective Subjective Date Patient Seen: 11/12/21 Interval history: Pain is overall improved today, still with some L foot pain but better than yesterday. Improved malaise and nausea today. S/p L 4th toe amputation with orthopedics yesterday. Labs looking improved. Cultures again with a group B strep. Will narrow antibiotic therapy. Exam Vital Signs (past 8 hours): - 11/12/21 05:19 11/12/21 05:36 11/12/21 08:52 Temperature 96.9 F L Pulse Rate 80 84 Respiratory Rate 18 Blood Pressure 114/51 L 119/54 L Pulse Oximetry 98 95 Oxygen Delivery Method Room Air Oxygen Flow Rate 0 11/12/21 09:00 11/12/21 09:48 Temperature 96.9 F L Pulse Rate 83 Respiratory Rate 16 Blood Pressure 119/54 L Pulse Oximetry 97 97 Oxygen Delivery Method Room Air Oxygen Flow Rate 0 0 Oxygen Delivery Method Room Air Oxygen Flow Rate 0 Narrative Exam Narrative: General:? Patient is well developed and well nourished, in no distress at this time though appears mildly fatigued. Obese with BMI 37.6. HEENT:? Normocephalic, atraumatic, extraocular muscles intact, oral pharynx is clear and mucous membranes are moist. Neck: supple and symmetric, trachea is midline, no cervical adenopathy. Negative for JVD Chest:? Normal AP diameter and contour without kyphoscoliosis, no tachypnea, equal chest rise bilaterally. Lungs:? CTA b/l no wheezing rhonchi or rales. Cardio:?RRR no m/r/g. Abdomen: S NT ND. Musculoskeletal:? Muscle strength and tone are equal within normal limits, no deformity. Extremities: No edema or joint effusions. No cyanosis or clubbing. Palpable PT pulse on the L but not palpable DP pulse. Skin:?L foot cellulitis along the dorsal aspect of her foot extending from her 4th digit. There is a deep ulcer of her left 4th toe corresponding to compression on her 5th toe. There is no draining purulence that is visible. Neuro:? Alert and orientated x3,?no gross deficits noted of cranial nerves. Decreased sensation to bilateral lower extremities. Psych:? Patient has a well-kept appearance, appropriate affect, mental status attitude thought context and judgment are appropriate for age. Objective Labs Result Diagrams: 11/12/21 06:07 11/12/21 06:07 Labs: Laboratory Results - last 24 hr 11/11/21 11/11/21 11/12/21 19:20 19:20 06:07 WBC 12.1 H RBC 3.35 L Hgb 10.3 L Hct 30.3 L MCV 90.2 MCH 30.8 MCHC 34.1 RDW 12.9 Plt Count 310 Neut % (Auto) 77.1 H Lymph % (Auto) 14.0 L [place] % (Auto) 7.2 Eos % (Auto) 1.1 L Baso % (Auto) 0.6 Neut # (Auto) 9400 H Lymph # (Auto) 1700 [place] # (Auto) 900 Eos # (Auto) 100 Baso # (Auto) 100 Sodium Potassium Chloride Carbon Dioxide BUN Creatinine Estimated GFR BUN/Creatinine Ratio Glucose Hemoglobin A1c Calcium Magnesium ALT 79 H Hep Bs Antigen Negative Hepatitis C Antibody Negative HIV 1&2 Ab/P24 Ag 4thGn Negative 11/12/21 11/12/21 06:07 06:07 WBC RBC Hgb Hct MCV MCH MCHC RDW Plt Count Neut % (Auto) Lymph % (Auto) [place] % (Auto) Eos % (Auto) Baso % (Auto) Neut # (Auto) Lymph # (Auto) [place] # (Auto) Eos # (Auto) Baso # (Auto) Sodium 134 L Potassium 4.6 Chloride 104 Carbon Dioxide 25 BUN 32 H Creatinine 1.25 H Estimated GFR 47 L BUN/Creatinine Ratio 25.6 H Glucose 184 H Hemoglobin A1c 8.9 H Calcium 8.6 Magnesium 2.3 ALT Hep Bs Antigen Hepatitis C Antibody HIV 1&2 Ab/P24 Ag 4thGn [facility] [place] Medical History Diabetes Hyperlipidemia Hypertension Surgical History H/O: hysterectomy History of cholecystectomy History of left knee replacement Family History Father Cancer Mother COPD (chronic obstructive pulmonary disease) Social History household members: family Smoking Status: Former smoker alcohol intake: never Assessment & Plan Assessment & Plan narrative: 1. Left 4th toe diabetic foot ulcer with corresponding left foot cellulitis and osteomyelitis - MRI foot revealed probable osteomyelitis, plan with orthopedics today for toe amputation. Appreciate their assistance with management. - continued cefepime and vanco for empiric coverage initially, will narrow to ceftriaxone 11/12. - culture with group B strep. Follow up blood cultures, no growth thus far. Will narrow to ceftriaxone given penicillin allergy. - ESR and CRP elevated 2. Type 2 diabetes - BMP on admit with glucose near 300. Takes multiple oral agents and long/short acting insulin. Hold oral agents for now. - Continue long and short acting insulin when on diet. - continue sliding scale coverage and once meals are regular she will likely need meal time coverage, consider 7 U based on dietary changes here in the hospital for prandial coverage. - A1c 8.9% - dietary consultation. 3. Hypertension - can resume home medications, hold lisinopril if OR planned. 4. Hyperlipidemia - continue home statin. 5. MADIHA- - suspect in setting of active infection. - continue to follow. Code: Full, as discussed with the patient, surrogate decision maker is the patient's son Dispo: Patient is admitted under inpatient status as her stay is expected to exceed 2 midnights DVT: Hold for now , resume after OR. I have utilized all available immediate resources to obtain, update, or review the patient's current medications. COVID-19 COVID-19 status: Negative Time Spent With Patient Critical Care time: I spent a total of [] minutes of critical care time on this patient's care today; this time is exclusive of procedural time. Quality VTE Deep Vein Thrombosis/Pulmonary Embolism Present on Admission: No
[2021-11-12] MEDS: cefTRIAXone 2,000 MG in SODIUM CHLORIDE 0.9% 100 ML 200 MG IV (12:21)
--- NOTE | 2021-11-12 14:23 | PT.IPTN ---
Current Diagnoses Type 2 diabetes mellitus with foot ulcer (11/10/21) Type 2 diabetes mellitus without complications (11/10/21) Non-pressure chronic ulcer of other part of unspecified foot with unspecified severity (11/10/21) Unspecified open wound, unspecified foot, initial encounter (11/10/21) Surgery Performed Operation Date: 11/11/21 17:00 Actual Procedures p Amputation of 4th digit foot(Left) - Lilliana Stuart MD Physical Therapy Treatment Note M2 PT-IP Current Condition Start: 11/12/21 13:03 Freq: NEEDED Status: Active Protocol: Document 11/12/21 10:15 AB (Rec: 11/12/21 13:21 AB [id number]) Physical Therapy Current Condition Current Condition Evaluation Date 11/12/21 Treatment Diagnosis s/p L 4th toe amputation; difficulty in walking Onset Date 11/10/21 M3 PT-IP Subjective Start: 11/12/21 13:03 Freq: NEEDED Status: Active Protocol: Document 11/12/21 13:59 KS (Rec: 11/12/21 14:38 KS [id number]) Subjective Physical Therapy Visit Type Type Treatment Note Visit Start Time 13:59 Visit Stop Time 14:23 Total Visit Minutes 24 Number of STATE ATTORNEY Visits 1 Physical Therapy Visit Comments Patient Comments agreed to do PT Therapy Pain Assessment Pain Present Pain Present Denied Pain M4 PT-IP Mobility and Gait Start: 11/12/21 13:03 Freq: NEEDED Status: Active Protocol: Document 11/12/21 13:59 KS (Rec: 11/12/21 14:38 KS [id number]) PT-Bed Mobility Assessment Rolling Type of Rolling Log Rolling,Roll to Left Level of Assist Contact Guard Assistance,1 Person Assistance Supine to Sit Supine to Sit Moderate Assistance,1 Person Assistance Scooting Scooting to Edge of Bed Contact Guard Assistance PT-Transfer Assessment Sit to and From Stand Sit to and from Stand Contact Guard Assistance,1 Person Assistance,Use of Upper Extremities Equipment Transfer Assistive Device Gait Belt,Front Wheeled Walker Orthotic/Prosthetic Devices or Brace: Yes Transfers Transfer Destination Chair,Toilet Transfer Technique Pt ambulated w/ FWW Transfer Ability Level of Assist Contact Guard Assistance, Minimal Assistance,1 Person Assistance,Use of Upper Extremities Comments Mobility Comments Pt in bed upon arrival and reluctant but agreeable to participate. Reveiwed WB restriction for LLE. CGA for logroll, Mod A for sidelying<> sit, CGA for scooting EOB. Donned heel weight bearing shoe to LLE along w/ previous post up shoe to RLE. Pt reported feeling off upon sitting. BP:142/54. Pt sit<> stand w/ FWW CGA and BP: 118/ 69. Pt requested to use BSC but then agreed to ambulate to toilet. CGA and rail for sit< >Stand from toilet. After voiding, pt ambulated additional 40 ft around room w / FWW CGA w/ cues for upright posture and staying inside of FWW. She then took seated rest break EOB before she transferred to chair, poor controlled descent despite cues. Pt left in chair w/ all needs in reach. Gait Assessment Gait Gait Assistance Required: Contact Guard Assist,1 Person Assist Distance (Feet) 40 Able to Maintain Weight Bearing Status Yes During Gait Assistive Devices Assistive Device Gait Belt,Front Wheeled Walker Orthotic/Prosthetic Devices or Brace: No Gait Deviations General Gait Pattern Decreased Stride Length, Decreased Feet Clearance,Step- to Gait Factors Limiting Gait Function Factors Limiting Gait Function Decreased Activity Tolerance, Decreased Strength,Limited Range of Motion,Poor Balance, Poor Safety Awareness Comments Gait Comments Please refer to mobility section for details. Stair Climbing Assessment Comments Stair Climbing Comments Did not assess, pt will need to complete 4 steps prior to d /c. PT-Balance Assessment Sitting Balance and Reactions Static Sitting Balance Ability Normal Dynamic Sitting Balance Ability Good Standing Balance and Reactions Static Standing Balance Ability Fair Dynamic Standing Balance Ability Fair Device Used FWW M5 PT-IP Objective Assessments Start: 11/12/21 13:03 Freq: NEEDED Status: Active Protocol: Document 11/12/21 10:15 AB (Rec: 11/12/21 13:21 AB [id number]) Orientation Orientation/Cognition Level of Alertness Alert Orientation Name,Place,Situation Language Function Ability Hard of Hearing Safety Awareness Decreased Safety Awareness Memory Description No Deficits Noted Gross Range of Motion Lower Extremity ROM Assessment Within Functional Limits Strength Lower Extremity Strength Hip 4-/5 Knee 4-/5 Muscle Tone Muscle Tone WNL Yes M6 PT-IP Treatment Start: 11/12/21 13:03 Freq: NEEDED Status: Active Protocol: Document 11/12/21 13:59 KS (Rec: 11/12/21 14:38 KS [id number]) Physical Therapy Treatment Education Education Provided Weight Bearing Status,Safety M7 PT-IP Assessment and Plan Start: 11/12/21 13:03 Freq: NEEDED Status: Active Protocol: Document 11/12/21 13:59 KAYLEE (Rec: 11/12/21 14:38 KS [id number]) PT Summary Assessment and Plan Potential Rehabilitation Potential Fair Status of Condition at Evaluation Evolving Summary Impairments Pain,ROM,Strength,Balance, Coordination,Sensation,Tone, Cognition,Bed Mobility, Transfers,Gait,Activity Tolerance Progress Towards Goals Slow Progress due to Activity Tolerance Assessment Summary Pt CGA to Mod A for bed mobility and CGA for sit<> Stand and ambulation w/ FWW. Pt limited to 40 ft ambulation today due to poor activity tolerance and fatigue. Required cues for hand placement during transfers and upright posture during ambulation. Pt reports she does not walk much at baseline . Anticipate pt will be safe to go home w/ assistance and HH however she will need to complete stair training prior to d/c. Goals Bed Mobility Goal Standby Assistance Transfer Goal Standby Assistance,Front Wheeled Walker Gait Goal Standby Assistance,Front Wheel Walker Gait Distance 150 Other Goals up/down 4 steps L rail ascending SBA Days to Meet Goals 10 Frequency of Treatment Frequency Of Treatment Twice a Day Treatment Plan Physical Therapy Treatment Plan Bed Mobility Training,Transfer Training,Gait Training, Therapeutic Exercise,Balance Retraining,Post Op Education, Discharge Planning,Hot or Cold Pack,Neuromuscular Re-ed, Coordination Retraining,Manual Therapy Weight Bearing Status Weight Bearing Status Non-Weight Bearing Allowed Weight Bearing Amount (enter % LLE: heel weight bearing only or #) (%) Recommendations To Nursing Amount of Assist Needed 1 Person Assist Discharge Recommendations PT Discharge Recommendations Home with Assistance,Home Health Transportation Needs at Discharge Private Vehicle
--- NOTE | 2021-11-12 15:15 | PC.NURSE ---
1500: Patient C/O chest pressure, described as constant dull ache to mid chest, non radiating, 4/10, with SOB and dizziness with movement. No diaphoresis or nausea. 112/51 HR [address] Carlson made aware.
--- NOTE | 2021-11-12 15:20 | DI.RAD.S_ITS ---
PROCEDURE: XR CHEST 1V INDICATIONS: chest pain TECHNIQUE: One view of the chest was acquired. COMPARISON: [facility], CR, XR CHEST 1V, 10/30/2020, 16:38. FINDINGS: Surgical changes and devices: None. Lungs and pleura: Lungs are clear. No pleural effusions or pneumothorax. Mediastinum: Mediastinal contours appear normal. Heart size is normal. Bones and chest wall: No suspicious bony lesions. Overlying soft tissues appear unremarkable. IMPRESSION: No acute cardiopulmonary abnormality. Dictated by: Juan Murdock M.D. on 11/12/2021 at 14:36 Approved by: Juan Murdock M.D. on 11/12/2021 at 14:36
[2021-11-12] MEDS: PANTOPRAZOLE DR 40 MG TABLET PO (16:25)
[2021-11-12 16:45] LABS: BUN Creatinine Ratio 34.2 (6-22); Blood Urea Nitrogen 39 mg/dL (7-17); Calcium 8.3 mg/dL (8.4-10.2); Carbon Dioxide 24 mmol/L (22-32); Chloride 102 mmol/L (98-107); Estimated Glomerular Filt Rate 52 mL/min (>60); Glucose 208 mg/dL (80-110); HEMOLYSIS 17 (0-50); Potassium 4.3 mmol/L (3.4-5.1); Sodium 133 mmol/L (137-145)
[2021-11-12 16:57] LABS: Troponin I < 0.012 ng/mL (0.01-0.034)
[2021-11-12] MEDS: INSULIN LISPRO 100 UNIT/ML 3ML VIAL 7 UNIT SUBCUT (17:21)
[2021-11-12] MEDS: INSULIN GLARGINE 100 UNIT/ML 3ML PEN 20 UNIT SUBCUT (21:55)
[2021-11-12] MEDS: ATORVASTATIN 20 MG TABLET PO (21:58)
[2021-11-13] VITALS (11 sets, daily range): BP systolic 115–134; BP diastolic 44–55; PULSE 83–94; RESP 16–18; TEMP 36.2–36.7; O2SAT 95–97
[2021-11-13 07:24] LABS: Add Manual Diff / Slide Review NO; Basophils Absolute Auto 100 /uL (0-100); Basophils Percent Auto 0.9 % (0-2); Eosinophils Absolute Auto 200 /uL (0-450); Eosinophils Percent Auto 2.2 % (2-4); Hematocrit 30.5 % (36-46); Hemoglobin 10.8 g/dL (12.0-16.0); Lymphocytes Absolute Auto 1600 /uL (1100-4500); Lymphocytes Percent Auto 15.6 % (25-40); Mean Corpuscular HGB Conc 35.3 % (30-36); Mean Corpuscular Hemoglobin 31.4 PG (26-34); Mean Corpuscular Volume 88.9 fL (80-100); Monocytes Absolute Auto 600 /uL (0-900); Monocytes Percent Auto 5.7 % (3-14); Neutrophils Absolute Auto 7900 /uL (1500-7000); Neutrophils Percent Auto 75.6 % (50-75); Platelet Count 368 X10^3/uL (150-400); Red Blood Cell Count 3.43 X10^6/uL (4.0-5.2); Red Cell Distribution Width 12.8 % (11.6-14.8); White Blood Cell Count 10.5 X10^3/uL (4.5-11.0)
[2021-11-13 07:37] LABS: Blood Urea Nitrogen 32 mg/dL (7-17); Calcium 8.6 mg/dL (8.4-10.2); Carbon Dioxide 23 mmol/L (22-32); Chloride 104 mmol/L (98-107); Estimated Glomerular Filt Rate > 60 mL/min (>60); Glucose 136 mg/dL (80-110); HEMOLYSIS < 15 (0-50); Magnesium 2.2 mg/dL (1.6-2.3); Potassium 4.1 mmol/L (3.4-5.1); Sodium 134 mmol/L (137-145)
--- NOTE | 2021-11-13 08:16 | CM.DANOTE ---
Discharge Planning/Care Management CM Discharge Assessment Start: 11/13/21 08:12 Freq: Status: Active Protocol: Document 11/13/21 08:12 TIARA (Rec: 11/13/21 08:15 TIARA [id number]) Discharge Planning Assessment Assigned Export Sales Manager EVERETT Panda DPOA/Assigned Designee Name ammy Anderson Contact Information [phone] Advance Directives? No History Provided By Patient,Medical Record Prior Living Arrangements House Household Members family Type of transporation used prior to Drives own vehicle admit Independent with ADL's Yes: With increased pain/poor activity tolerance d/t foot pain Is patient alert and oriented? Yes Barriers to Discharge No Comment Has family support. Likely home w/family and close outpatient f/u r/o need for HH Discharge Plan Home Transportation Arrangement Family Additional Comment Following closely for referral need,
[2021-11-13] MEDS: INSULIN LISPRO 100 UNIT/ML 3ML VIAL 7 UNIT SUBCUT ×3 (08:24→17:26)
[2021-11-13] MEDS: lisinopriL 20 MG TABLET PO (08:27)
[2021-11-13] MEDS: ASPIRIN EC 81 MG TABLET PO ×2 (08:27→21:03)
[2021-11-13] MEDS: glipiZIDE 5 MG TABLET 10 MG PO ×2 (08:27→21:03)
[2021-11-13] MEDS: METFORMIN XR 500 MG TABLET PO ×2 (08:28→21:03)
[2021-11-13] MEDS: hydroCHLOROthiazide 25 MG TABLET 12.5 MG PO (08:28)
[2021-11-13] MEDS: IBUPROFEN 400 MG TABLET 800 MG PO ×2 (08:28→21:03)
[2021-11-13] MEDS: PANTOPRAZOLE DR 40 MG TABLET PO (08:30)
--- NOTE | 2021-11-13 10:03 | PT-IP ANOTE ---
Unable to see patient this am secondary to wet floor do to room being mopped. Will try again this afternoon.
[2021-11-13 10:28] LABS: Hepatitis B Surf Ab Qualitativ Reactive (.)
[2021-11-13] MEDS: OXYCODONE IR 5 MG TABLET PO ×2 (10:45→21:04)
--- NOTE | 2021-11-13 11:09 | PM.PNPO.1 ---
Subjective Subjective Interval history: She had some some increased pain in the left leg today. She also notes some increased cramping. She has not had a fever overnight. Exam Vital Signs (past 8 hours): - 11/13/21 04:59 11/13/21 05:00 11/13/21 07:28 Temperature 97.2 F L 98.0 F Pulse Rate 83 86 Respiratory Rate 18 Blood Pressure 134/55 L 123/55 L Pulse Oximetry 96 96 95 Oxygen Delivery Method Room Air Oxygen Flow Rate 0 0 11/13/21 07:30 11/13/21 08:27 Temperature 98.0 F Pulse Rate 86 86 Respiratory Rate 16 Blood Pressure 123/55 L 123/55 L Pulse Oximetry 95 Oxygen Delivery Method Oxygen Flow Rate 0 Oxygen Delivery Method Room Air Oxygen Flow Rate 0 Narrative Exam Narrative: She is alert and oriented she is resting comfortably in bed she is having some slight spasms in her left leg. There is some erythema on the dorsum of her foot but it is not severe. Her wound edges benign. There is no purulence at the base of her wound. Her packings removed without difficulty. Objective Labs Result Diagrams: 11/13/21 07:15 11/13/21 07:15 Labs: Laboratory Results - last 24 hr 11/11/21 11/12/21 11/13/21 19:20 16:25 07:15 WBC 10.5 RBC 3.43 L Hgb 10.8 L Hct 30.5 L MCV 88.9 MCH 31.4 MCHC 35.3 RDW 12.8 Plt Count 368 Neut % (Auto) 75.6 H Lymph % (Auto) 15.6 L [place] % (Auto) 5.7 Eos % (Auto) 2.2 Baso % (Auto) 0.9 Neut # (Auto) 7900 H Lymph # (Auto) 1600 [place] # (Auto) 600 Eos # (Auto) 200 Baso # (Auto) 100 Sodium 133 L Potassium 4.3 Chloride 102 Carbon Dioxide 24 BUN 39 H Creatinine 1.14 H Estimated GFR 52 L BUN/Creatinine Ratio 34.2 H Glucose 208 H Calcium 8.3 L Magnesium Troponin I < 0.012 Hep Bs Antibody Reactive 11/13/21 07:15 WBC RBC Hgb Hct MCV MCH MCHC RDW Plt Count Neut % (Auto) Lymph % (Auto) [place] % (Auto) Eos % (Auto) Baso % (Auto) Neut # (Auto) Lymph # (Auto) [place] # (Auto) Eos # (Auto) Baso # (Auto) Sodium 134 L Potassium 4.1 Chloride 104 Carbon Dioxide 23 BUN 32 H Creatinine 0.82 Estimated GFR > 60 BUN/Creatinine Ratio 39.0 H Glucose 136 H Calcium 8.6 Magnesium 2.2 Troponin I Hep Bs Antibody PFSH Medical History Diabetes Hyperlipidemia Hypertension Surgical History H/O: hysterectomy History of cholecystectomy History of left knee replacement Family History Father Cancer Mother COPD (chronic obstructive pulmonary disease) Social History household members: family Smoking Status: Former smoker alcohol intake: never Assessment & Plan Post-op Postoperative Procedures: Procedures Operation Date: 11/11/21 17:00 Actual Procedure Side Surgeon p Amputation of 4th digit foot Left Lilliana Stuart MD Postoperative day: 1 Postoperative status narrative: Improving status postop open toe amputation, her packing was removed and she was redressed with light packing. Her white blood cell counts substantially improved. Postoperative plan narrative: Continue IV antibiotics at least until tomorrow she needs daily dressing changes for her left foot. She potentially could be discharged on oral antibiotics on Sunday. Quality VTE Deep Vein Thrombosis/Pulmonary Embolism Present on Admission: No
[2021-11-13] MEDS: cefTRIAXone 2,000 MG in SODIUM CHLORIDE 0.9% 100 ML 200 MG IV (11:10)
[2021-11-13] MEDS: INSULIN LISPRO 100 UNIT/ML 3ML VIAL SUBCUT ×3 (12:05→22:12)
--- NOTE | 2021-11-13 12:49 | PM.PN.1 ---
Subjective Subjective Date Patient Seen: 11/13/21 Interval history: Patient continues to have some foot pain, worse after ambulation. No nausea, or vomiting. Feels somewhat fatigued today. No fever, chills. Exam Vital Signs (past 8 hours): - 11/13/21 04:59 11/13/21 05:00 11/13/21 07:28 Temperature 97.2 F L 98.0 F Pulse Rate 83 86 Respiratory Rate 18 Blood Pressure 134/55 L 123/55 L Pulse Oximetry 96 96 95 Oxygen Delivery Method Room Air Oxygen Flow Rate 0 0 11/13/21 07:30 11/13/21 08:27 11/13/21 07:00 Temperature 98.0 F Pulse Rate 86 86 Respiratory Rate 16 Blood Pressure 123/55 L 123/55 L Pulse Oximetry 95 Oxygen Delivery Method Room Air Oxygen Flow Rate 0 11/13/21 09:00 11/13/21 11:25 Temperature 98.0 F Pulse Rate 94 H Respiratory Rate 18 Blood Pressure Pulse Oximetry 95 Oxygen Delivery Method Room Air Oxygen Flow Rate 0 Oxygen Delivery Method Room Air Oxygen Flow Rate 0 Narrative Exam Narrative: General:? Patient is well developed and well nourished, in no distress at this time though appears mildly fatigued. Obese with BMI 37.6. HEENT:? Normocephalic, atraumatic, extraocular muscles intact, oral pharynx is clear and mucous membranes are moist. Neck: supple and symmetric, trachea is midline, no cervical adenopathy. Negative for JVD Chest:? Normal AP diameter and contour without kyphoscoliosis, no tachypnea, equal chest rise bilaterally. Lungs:? CTA b/l no wheezing rhonchi or rales. Cardio:?RRR no m/r/g. Abdomen: S NT ND. Musculoskeletal:? Muscle strength and tone are equal within normal limits, no deformity. Extremities: No edema or joint effusions. No cyanosis or clubbing. Palpable PT pulse on the L but not palpable DP pulse. Skin:?L foot cellulitis along the dorsal aspect of her foot extending from her 4th digit. There is a deep ulcer of her left 4th toe corresponding to compression on her 5th toe. There is no draining purulence that is visible. Neuro:? Alert and orientated x3,?no gross deficits noted of cranial nerves. Decreased sensation to bilateral lower extremities. Psych:? Patient has a well-kept appearance, appropriate affect, mental status attitude thought context and judgment are appropriate for age. Objective Labs Result Diagrams: 11/13/21 07:15 11/13/21 07:15 Labs: Laboratory Results - last 24 hr 11/11/21 11/12/21 11/13/21 19:20 16:25 07:15 WBC 10.5 RBC 3.43 L Hgb 10.8 L Hct 30.5 L MCV 88.9 MCH 31.4 MCHC 35.3 RDW 12.8 Plt Count 368 Neut % (Auto) 75.6 H Lymph % (Auto) 15.6 L [place] % (Auto) 5.7 Eos % (Auto) 2.2 Baso % (Auto) 0.9 Neut # (Auto) 7900 H Lymph # (Auto) 1600 [place] # (Auto) 600 Eos # (Auto) 200 Baso # (Auto) 100 Sodium 133 L Potassium 4.3 Chloride 102 Carbon Dioxide 24 BUN 39 H Creatinine 1.14 H Estimated GFR 52 L BUN/Creatinine Ratio 34.2 H Glucose 208 H Calcium 8.3 L Magnesium Troponin I < 0.012 Hep Bs Antibody Reactive 11/13/21 07:15 WBC RBC Hgb Hct MCV MCH MCHC RDW Plt Count Neut % (Auto) Lymph % (Auto) [place] % (Auto) Eos % (Auto) Baso % (Auto) Neut # (Auto) Lymph # (Auto) [place] # (Auto) Eos # (Auto) Baso # (Auto) Sodium 134 L Potassium 4.1 Chloride 104 Carbon Dioxide 23 BUN 32 H Creatinine 0.82 Estimated GFR > 60 BUN/Creatinine Ratio 39.0 H Glucose 136 H Calcium 8.6 Magnesium 2.2 Troponin I Hep Bs Antibody [facility] Medical History Diabetes Hyperlipidemia Hypertension Surgical History H/O: hysterectomy History of cholecystectomy History of left knee replacement Family History Father Cancer Mother COPD (chronic obstructive pulmonary disease) Social History household members: family Smoking Status: Former smoker alcohol intake: never Assessment & Plan Assessment & Plan narrative: 1. Left 4th toe diabetic foot ulcer with corresponding left foot cellulitis and osteomyelitis - MRI foot revealed probable osteomyelitis, plan with orthopedics today for toe amputation. Appreciate their assistance with management. - culture with group B strep. Follow up blood cultures, no growth thus far. - continued cefepime and vanco for empiric coverage initially, narrowed to ceftriaxone 11/12. - ESR and CRP elevated 2. Type 2 diabetes - BMP on admit with glucose near 300. Takes multiple oral agents and long/short acting insulin. Hold oral agents for now. - A1c 8.9% - Continue long and short acting insulin therapy. Sugars improved today with meal-time coverage. - dietary consultation. 3. Hypertension - can resume home medications, hold lisinopril if OR planned. 4. Hyperlipidemia - continue home statin. 5. MADIHA, resolved - suspect in setting of active infection. - continue to follow. Code: Full, as discussed with the patient, surrogate decision maker is the patient's son Dispo: Patient is admitted under inpatient status as her stay is expected to exceed 2 midnights DVT: Hold for now , resume after OR. I have utilized all available immediate resources to obtain, update, or review the patient's current medications. COVID-19 COVID-19 status: Negative Time Spent With Patient Critical Care time: I spent a total of [] minutes of critical care time on this patient's care today; this time is exclusive of procedural time. Quality VTE Deep Vein Thrombosis/Pulmonary Embolism Present on Admission: No
--- NOTE | 2021-11-13 15:54 | PT.IPTN ---
Current Diagnoses Type 2 diabetes mellitus with foot ulcer (11/10/21) Type 2 diabetes mellitus without complications (11/10/21) Non-pressure chronic ulcer of other part of unspecified foot with unspecified severity (11/10/21) Unspecified open wound, unspecified foot, initial encounter (11/10/21) Surgery Performed Operation Date: 11/11/21 17:00 Actual Procedures p Amputation of 4th digit foot(Left) - Lilliana Stuart MD Physical Therapy Treatment Note M2 PT-IP Current Condition Start: 11/12/21 13:03 Freq: NEEDED Status: Active Protocol: Document 11/12/21 10:15 AB (Rec: 11/12/21 13:21 AB [id number]) Physical Therapy Current Condition Current Condition Evaluation Date 11/12/21 Treatment Diagnosis s/p L 4th toe amputation; difficulty in walking Onset Date 11/10/21 M3 PT-IP Subjective Start: 11/12/21 13:03 Freq: NEEDED Status: Active Protocol: Document 11/13/21 15:02 AW (Rec: 11/13/21 15:54 AW [id number]) Subjective Physical Therapy Visit Type Type Treatment Note Visit Start Time 14:38 Visit Stop Time 15:02 Total Visit Minutes 24 Number of ORGAN ASSEMBLER Visits 0 Physical Therapy Visit Comments Patient Comments Pt is willing to participate with PT Therapy Pain Assessment Pain When Pain Assessed During Mobility Pain Present Pain Present Pain Reported Location Left Foot Intensity 2 Scale Used Numeric (0 - 10) Pain Management Techniques Elevation,Modification of Treatment M4 PT-IP Mobility and Gait Start: 11/12/21 13:03 Freq: NEEDED Status: Active Protocol: Document 11/13/21 15:02 AW (Rec: 11/13/21 15:54 AW [id number]) PT-Bed Mobility Assessment Supine to Sit Supine to Sit Minimal Assistance,1 Person Assistance,Bedrails PT-Transfer Assessment Sit to and From Stand Sit to and from Stand Contact Guard Assistance,1 Person Assistance,Use of Upper Extremities Equipment Transfer Assistive Device Gait Belt,Front Wheeled Walker Transfers Transfer Destination Chair,Toilet Transfer Technique Pt ambulated w/ FWW Transfer Ability Level of Assist Contact Guard Assistance, Minimal Assistance,1 Person Assistance,Use of Upper Extremities Comments Mobility Comments Pt was in bed as PT arrived. She needed min A and bed rails to sit up EOB. PT assisted to don forefoot offloading shoe LLE and surgical shoe RLE. Pt stood and used FWW to ambulate to the toilet, needing CGA> Arturo on and off the toilet with heavy use of L side grab bar. In standing, pt needed min A to recover from posterior LOB. Pt then used FWW to ambulate a total of 85 feet SBA/CGA. On return to the room, she sat on the chair CGA and PT maximally elevated her legs, leaving her with call light and tray table in reach. Gait Assessment Gait Gait Assistance Required: Standby Assistance,Contact Guard Assist Distance (Feet) 85 Able to Maintain Weight Bearing Status Yes During Gait Assistive Devices Assistive Device Gait Belt,Front Wheeled Walker Orthotic/Prosthetic Devices or Brace: No Gait Deviations General Gait Pattern Decreased Stride Length, Decreased Feet Clearance,Step- to Gait Factors Limiting Gait Function Factors Limiting Gait Function Decreased Activity Tolerance, Decreased Strength,Limited Range of Motion,Pain,Poor Balance Comments Gait Comments Please refer to mobility section for details. Stair Climbing Assessment Comments Stair Climbing Comments Did not assess, pt will need to complete 4 steps prior to d /c. PT-Balance Assessment Sitting Balance and Reactions Static Sitting Balance Ability Normal Dynamic Sitting Balance Ability Good Standing Balance and Reactions Static Standing Balance Ability Good Dynamic Standing Balance Ability Fair Device Used FWW M5 PT-IP Objective Assessments Start: 11/12/21 13:03 Freq: NEEDED Status: Active Protocol: Document 11/12/21 10:15 AB (Rec: 11/12/21 13:21 AB [id number]) Orientation Orientation/Cognition Level of Alertness Alert Orientation Name,Place,Situation Language Function Ability Hard of Hearing Safety Awareness Decreased Safety Awareness Memory Description No Deficits Noted Gross Range of Motion Lower Extremity ROM Assessment Within Functional Limits Strength Lower Extremity Strength Hip 4-/5 Knee 4-/5 Muscle Tone Muscle Tone WNL Yes M6 PT-IP Treatment Start: 11/12/21 13:03 Freq: NEEDED Status: Active Protocol: Document 11/13/21 15:02 AW (Rec: 11/13/21 15:54 AW [id number]) Physical Therapy Treatment Education Education Provided Weight Bearing Status,Safety M7 PT-IP Assessment and Plan Start: 11/12/21 13:03 Freq: NEEDED Status: Active Protocol: Document 11/13/21 15:02 AW (Rec: 11/13/21 15:54 AW [id number]) PT Summary Assessment and Plan Summary Impairments Pain,ROM,Strength,Balance, Coordination,Sensation,Tone, Cognition,Bed Mobility, Transfers,Gait,Activity Tolerance Progress Towards Goals Progressing Toward Goals,Slow Progress due to Activity Tolerance Assessment Summary Pt improved with bed mobility but continues to need up to min assist for transfers with concern for balance in post-op shoe. Pt had one posterior LOB at the toilet today. Discharge plan may depend on pt's sister's ability to provide assist at home but anticipate pt will be safe to go home w/ assistance and HH. She will need to complete stair training prior to d/c. Goals Bed Mobility Goal Standby Assistance Transfer Goal Standby Assistance,Front Wheeled Walker Gait Goal Standby Assistance,Front Wheel Walker Gait Distance 150 Other Goals up/down 4 steps L rail ascending SBA Days to Meet Goals 10 Frequency of Treatment Frequency Of Treatment Twice a Day Treatment Plan Physical Therapy Treatment Plan Bed Mobility Training,Transfer Training,Gait Training, Therapeutic Exercise,Balance Retraining,Post Op Education, Discharge Planning,Hot or Cold Pack,Neuromuscular Re-ed, Coordination Retraining,Manual Therapy Weight Bearing Status Weight Bearing Status Non-Weight Bearing Allowed Weight Bearing Amount (enter % LLE: heel weight bearing only or #) (%) Recommendations To Nursing Amount of Assist Needed 1 Person Assist Discharge Recommendations PT Discharge Recommendations Home with Assistance,Home Health Transportation Needs at Discharge Private Vehicle
[2021-11-13 17:28] LABS: Vancomycin Trough < 5.0 ug/mL (10-20)
--- NOTE | 2021-11-13 17:57 | PC.NURSE ---
Pt is AxOx4,need STA and cooperative. VSS, pt c/o pain during dressing change in the morning and recieved PRN PO Oxy 5mg with good effect. BG-172/228/173 today and pt recieved the coverage. Pt is eating well and drinking well. Pt's son came to and got dressing change teaching. Also, pt's son recieved some dressing change supplies for the pt when she d/c home. Pt and her son seemed understanding of the procedure. Pain is controlled, dressing change teaching done, and BG is controlled. No other changes. Continue monitor.
[2021-11-13] MEDS: ATORVASTATIN 20 MG TABLET PO (21:03)
[2021-11-13] MEDS: INSULIN GLARGINE 100 UNIT/ML 3ML PEN 20 UNIT SUBCUT (22:13)
[2021-11-14] VITALS (10 sets, daily range): BP systolic 111–130; BP diastolic 38–58; PULSE 81–100; RESP 16–20; TEMP 36.1–36.7; O2SAT 95–98
[2021-11-14] MEDS: OXYCODONE IR 5 MG TABLET PO ×3 (03:08→22:12)
[2021-11-14] MEDS: PANTOPRAZOLE DR 40 MG TABLET PO (06:01)
[2021-11-14] MEDS: INSULIN LISPRO 100 UNIT/ML 3ML VIAL 7 UNIT SUBCUT ×3 (08:16→16:59)
[2021-11-14] MEDS: hydroCHLOROthiazide 25 MG TABLET 12.5 MG PO (08:17)
[2021-11-14] MEDS: glipiZIDE 5 MG TABLET 10 MG PO ×2 (08:17→22:11)
[2021-11-14] MEDS: IBUPROFEN 400 MG TABLET 800 MG PO ×2 (08:17→22:09)
[2021-11-14] MEDS: METFORMIN XR 500 MG TABLET PO ×2 (08:17→22:10)
[2021-11-14] MEDS: lisinopriL 20 MG TABLET PO (08:18)
[2021-11-14] MEDS: ASPIRIN EC 81 MG TABLET PO ×2 (08:18→22:11)
[2021-11-14] MEDS: DOCUSATE 100 MG CAPSULE 200 MG PO ×2 (09:36→22:11)
[2021-11-14] MEDS: SENNOSIDES 8.6 MG TABLET 17.2 MG PO ×2 (09:36→22:10)
--- NOTE | 2021-11-14 10:04 | PC.NURSE ---
picture taken 11/11/21
--- NOTE | 2021-11-14 10:05 | PT-IP ANOTE ---
Attempted to see pt for PT treatment but pt was sleeping soundly and did not rouse to voice. Pt allowed to sleep. PT will plan to see pt later today.
[2021-11-14] MEDS: ENOXAPARIN 40 MG/0.4 ML SYRINGE SUBCUT (11:55)
[2021-11-14] MEDS: cefTRIAXone 2,000 MG in SODIUM CHLORIDE 0.9% 100 ML 200 MG IV (11:55)
[2021-11-14] MEDS: INSULIN LISPRO 100 UNIT/ML 3ML VIAL SUBCUT ×3 (11:56→22:14)
--- NOTE | 2021-11-14 14:06 | PT.IPTN ---
Current Diagnoses Type 2 diabetes mellitus with foot ulcer (11/10/21) Type 2 diabetes mellitus without complications (11/10/21) Non-pressure chronic ulcer of other part of unspecified foot with unspecified severity (11/10/21) Unspecified open wound, unspecified foot, initial encounter (11/10/21) Surgery Performed Operation Date: 11/11/21 17:00 Actual Procedures p Amputation of 4th digit foot(Left) - Lilliana Stuart MD Physical Therapy Treatment Note M2 PT-IP Current Condition Start: 11/12/21 13:03 Freq: NEEDED Status: Active Protocol: Document 11/12/21 10:15 AB (Rec: 11/12/21 13:21 AB [email or web address]) Physical Therapy Current Condition Current Condition Evaluation Date 11/12/21 Treatment Diagnosis s/p L 4th toe amputation; difficulty in walking Onset Date 11/10/21 M3 PT-IP Subjective Start: 11/12/21 13:03 Freq: NEEDED Status: Active Protocol: Document 11/14/21 14:06 AW (Rec: 11/14/21 14:38 AW [id number]) Subjective Physical Therapy Visit Type Type Treatment Note Visit Start Time 13:38 Visit Stop Time 14:06 Total Visit Minutes 28 Number of UTILITY WORKER FORGE Visits 0 Physical Therapy Visit Comments Patient Comments Pt is willing to participate with PT Patient Goals Marissa hopes to go home tomorrow. She and her family are working out plans to have 27/11 assist Therapy Pain Assessment Pain When Pain Assessed During Mobility Pain Present Pain Present Pain Reported Location Left Foot Scale Used not quantified Pain Management Techniques Distraction,Elevation M4 PT-IP Mobility and Gait Start: 11/12/21 13:03 Freq: NEEDED Status: Active Protocol: Document 11/14/21 14:06 AW (Rec: 11/14/21 14:38 AW [id number]) PT-Bed Mobility Assessment Supine to Sit Supine to Sit Contact Guard Assistance,1 Person Assistance,Bedrails Scooting Scooting to Edge of Bed Contact Guard Assistance PT-Transfer Assessment Sit to and From Stand Sit to and from Stand Contact Guard Assistance, Minimal Assistance,1 Person Assistance,Use of Upper Extremities Equipment Transfer Assistive Device Gait Belt,Front Wheeled Walker Orthotic/Prosthetic Devices or Brace: Yes Transfers Transfer Destination Chair,Toilet,Wheelchair Transfer Technique Pt ambulated w/ FWW Transfer Ability Level of Assist Contact Guard Assistance, Minimal Assistance,1 Person Assistance,Use of Upper Extremities Comments Mobility Comments Pt was lying in bed as PT arrived. BP 122/62. She sat up EOB CGA but used momentum to complete. She again rocked back and forth to stand CGA. She used FWW to ambulate to the door and then transferred to wheelchair CGA. She was escorted to therapy stairs. She stood and used FWW to approach the stairs. Pt states she sometimes goes up and down her stairs sideways and would like to try this method. Pt faced the left rail and was able to ascend and descend 3 steps with BUE on the rail CGA. She agreed to ambulate back to the room, walking 100 feet with FWW SBA/CGA and wheelchair follow. Pt walked into the bathroom and sat on the toilet with heavy use of L side grab bars. After voiding , she pulled heavily on the grab bars to stand CGA. She used FWW to walk to the chair where she was left with call light and tray table in reach. Gait Assessment Gait Gait Assistance Required: Standby Assistance,Contact Guard Assist Distance (Feet) 100 Able to Maintain Weight Bearing Status Yes During Gait Assistive Devices Assistive Device Gait Belt,Front Wheeled Walker Orthotic/Prosthetic Devices or Brace: Yes Gait Deviations General Gait Pattern Decreased Stride Length, Decreased Feet Clearance,Step- to Gait Factors Limiting Gait Function Factors Limiting Gait Function Decreased Activity Tolerance, Decreased Strength,Limited Range of Motion,Pain,Poor Balance Comments Gait Comments Please refer to mobility section for details. Stair Climbing Assessment Evaluation Level of Assist On Stairs Contact Guard Assistance Devices Stair Climbing Assistive Devices Left Railing Technique/Endurance Stair Climbing Direction Ascend and Descend Stair Climbing Technique Step to Step Number of Steps Climbed 3 Stair Climbing Set # Repetitions (reps) 1 Comments Stair Climbing Comments Pt climbed and descended sideways facing left rail with both hands on the rail. Cues given for foot clearance to ensure space for trailing foot up and down. PT-Balance Assessment Sitting Balance and Reactions Static Sitting Balance Ability Normal Dynamic Sitting Balance Ability Good Standing Balance and Reactions Static Standing Balance Ability Good Dynamic Standing Balance Ability Fair Device Used FWW M5 PT-IP Objective Assessments Start: 11/12/21 13:03 Freq: NEEDED Status: Active Protocol: Document 11/12/21 10:15 AB (Rec: 11/12/21 13:21 AB [id number]) Orientation Orientation/Cognition Level of Alertness Alert Orientation Name,Place,Situation Language Function Ability Hard of Hearing Safety Awareness Decreased Safety Awareness Memory Description No Deficits Noted Gross Range of Motion Lower Extremity ROM Assessment Within Functional Limits Strength Lower Extremity Strength Hip 4-/5 Knee 4-/5 Muscle Tone Muscle Tone WNL Yes M6 PT-IP Treatment Start: 11/12/21 13:03 Freq: NEEDED Status: Active Protocol: Document 11/14/21 14:06 AW (Rec: 11/14/21 14:38 AW [id number]) Physical Therapy Treatment Education Education Provided Weight Bearing Status,Safety M7 PT-IP Assessment and Plan Start: 11/12/21 13:03 Freq: NEEDED Status: Active Protocol: Document 11/14/21 14:06 AW (Rec: 11/14/21 14:38 AW [id number]) PT Summary Assessment and Plan Summary Impairments Pain,ROM,Strength,Balance, Coordination,Sensation,Tone, Cognition,Bed Mobility, Transfers,Gait,Activity Tolerance Progress Towards Goals Progressing Toward Goals,Slow Progress due to Activity Tolerance Assessment Summary Pt continues to improve with mobility using FWW. She completed stair training today but may benefit from additional training with caregiver present. Pt does rely heavily on grab bars for toilet transfers and PT recommended raised toilet seat with handles for home. Pt's family are working on a plan for 27/11 assist at home. Anticipate pt will be safe to go home w/ assistance and HH. Goals Bed Mobility Goal Standby Assistance Transfer Goal Standby Assistance,Front Wheeled Walker Gait Goal Standby Assistance,Front Wheel Walker Gait Distance 150 Other Goals up/down 4 steps L rail ascending SBA Days to Meet Goals 10 Frequency of Treatment Frequency Of Treatment Twice a Day Treatment Plan Physical Therapy Treatment Plan Bed Mobility Training,Transfer Training,Gait Training, Therapeutic Exercise,Balance Retraining,Post Op Education, Discharge Planning,Hot or Cold Pack,Neuromuscular Re-ed, Coordination Retraining,Manual Therapy Weight Bearing Status Weight Bearing Status Non-Weight Bearing Allowed Weight Bearing Amount (enter % LLE: heel weight bearing only or #) (%) Recommendations To Nursing Amount of Assist Needed Standby Assistance,1 Person Assist Discharge Recommendations PT Discharge Recommendations Home with Assistance,Home Health Equipment Needed for Home Before raised toilet seat with Discharge handles Transportation Needs at Discharge Private Vehicle
--- NOTE | 2021-11-14 15:41 | PM.PNPO.1 ---
Subjective Subjective Date Patient Seen: 11/14/21 Time Patient Seen: 12:30 Interval history: Resting comfortably in bed. Has been working w/ PT, reports some pain with walking but otherwise feeling well. Exam Vital Signs (past 8 hours): - 11/14/21 10:03 11/14/21 08:18 11/14/21 09:00 Temperature 97.7 F Pulse Rate 90 90 Respiratory Rate 17 Blood Pressure 130/55 L 130/55 L Pulse Oximetry 96 Oxygen Delivery Method Room Air Oxygen Flow Rate 0 11/14/21 10:00 11/14/21 13:45 Temperature 97.7 F 97.5 F L Pulse Rate 90 86 Respiratory Rate 17 18 Blood Pressure 130/55 L 122/52 L Pulse Oximetry 96 95 Oxygen Delivery Method Oxygen Flow Rate 0 0 Oxygen Delivery Method Room Air Oxygen Flow Rate 0 Narrative Exam Narrative: Purulence noted at plantar aspect of incision. Erythema to midfoot. Able to wiggle toes, sensation to touch intact. Group B strep and staph; anaerobic cultures still pending. Objective Labs Result Diagrams: 11/13/21 07:15 11/13/21 07:15 Labs: Laboratory Results - last 24 hr 11/13/21 16:50 Vancomycin Trough < 5.0 L PFSH Medical History Diabetes Hyperlipidemia Hypertension Surgical History H/O: hysterectomy History of cholecystectomy History of left knee replacement Family History Father Cancer Mother COPD (chronic obstructive pulmonary disease) Social History household members: family Smoking Status: Former smoker alcohol intake: never Assessment & Plan Post-op Assessment and plan (1) Diabetic foot ulcer: Assessment and Plan narrative: Will consult wound care nurse for assessment/recommendations. Continue daily dressing changes unless wound care specifies otherwise. Hopeful discharge home tomorrow if final cultures/sensitivities returned. Postoperative Procedures: Procedures Operation Date: 11/11/21 17:00 Actual Procedure Side Surgeon p Amputation of 4th digit foot Left Lilliana Stuart MD Postoperative day: 3 Quality VTE Deep Vein Thrombosis/Pulmonary Embolism Present on Admission: No
--- NOTE | 2021-11-14 16:59 | PM.PN.1 ---
Subjective Subjective Date Patient Seen: 11/14/21 Interval history: 70 y/o female s/p 4th toe amputation. She reports some pain. She finally had a BM today but no diarrhea Exam Vital Signs (past 8 hours): - 11/14/21 10:03 11/14/21 09:00 11/14/21 10:00 Temperature 97.7 F 97.7 F Pulse Rate 90 90 Respiratory Rate 17 17 Blood Pressure 130/55 L 130/55 L Pulse Oximetry 96 96 Oxygen Delivery Method Room Air Oxygen Flow Rate 0 0 11/14/21 13:45 11/14/21 13:00 Temperature 97.5 F L Pulse Rate 86 Respiratory Rate 18 Blood Pressure 122/52 L Pulse Oximetry 95 Oxygen Delivery Method Room Air Oxygen Flow Rate 0 Oxygen Delivery Method Room Air Oxygen Flow Rate 0 Narrative Exam Narrative: pleasant female in no acute distress Resp Other: Lungs: clear to ausculatation Cardio Other: CV: RRR nl Sl S2 GI Other: Abd; Soft/ nontender Extrem Other: Left foot ruth ann bandage in place Objective Labs Result Diagrams: 11/13/21 07:15 11/13/21 07:15 Labs: Laboratory Results - last 24 hr 11/13/21 16:50 Vancomycin Trough < 5.0 L PFSH Medical History Diabetes Hyperlipidemia Hypertension Surgical History H/O: hysterectomy History of cholecystectomy History of left knee replacement Family History Father Cancer Mother COPD (chronic obstructive pulmonary disease) Social History household members: family Smoking Status: Former smoker alcohol intake: never Assessment & Plan Assessment & Plan narrative: Left 4th toe diabetic foot ulcer with corresponding left foot cellulitis and osteomyelitis ?- MRI foot revealed probable osteomyelitis, s/p 4 th digit amputation ?- culture with group B strep. Follow up blood cultures, no growth thus far. - continued cefepime and vanco for empiric coverage initially, narrowed to ceftriaxone 11/12.? ?- ESR and CRP elevated 2. Type 2 diabetes ?- BMP on admit with glucose near 300. Takes multiple oral agents and long/short acting insulin. Hold oral agents for now. ?- A1c 8.9% ?- Continue long and short acting insulin therapy. Sugars improved today with meal-time coverage. ?- dietary consultation. 3. Hypertension ?- can resume home medications, hold lisinopril if OR planned. 4. Hyperlipidemia ? - continue home statin. 5. MADIHA, resolved ?- suspect in setting of active infection. ?- continue to follow. 6. Disposition Anticipate discharge home on oral antibiotics tomorrow Wound care consult in house and as an outpatient Time Spent With Patient Critical Care time: I spent a total of [] minutes of critical care time on this patient's care today; this time is exclusive of procedural time. Quality VTE Deep Vein Thrombosis/Pulmonary Embolism Present on Admission: No
--- NOTE | 2021-11-14 18:03 | PC.NURSE ---
Pt is AxOx4, 1 person assistance and cooperative. VSS, pt c/o pain LLE after worked with PT and recieved PRN Oxy 5mg wit good effect. Dressing changed. BG-123/259/176 and pt recieved coverage. Pt is doing very well. Pt c/o constipation and PRN colace and Senna given; not effective. Pt has small BM today. Pt will be d/c to her home tomorrow. No other changes.
[2021-11-14] MEDS: ATORVASTATIN 20 MG TABLET PO (22:11)
[2021-11-14] MEDS: INSULIN GLARGINE 100 UNIT/ML 3ML PEN 20 UNIT SUBCUT (22:12)
[2021-11-15] MEDS: hydrOXYzine pamoate 25 MG CAPSULE PO (02:22)
[2021-11-15] MEDS: OXYCODONE IR 5 MG TABLET PO ×2 (02:22→08:48)
[2021-11-15 04:00] VITALS: BP 134/60; PULSE 93; RESP 17; TEMP 36.4; O2SAT 95
[2021-11-15 05:00] VITALS: O2SAT 96
[2021-11-15] MEDS: PANTOPRAZOLE DR 40 MG TABLET PO (06:55)
--- NOTE | 2021-11-15 07:30 | PM.PNPO.1 ---
Subjective Subjective Date Patient Seen: 11/15/21 Time Patient Seen: 07:31 Interval history: Patient states her pain is mild. Denies fever/ chills. No nausea/ vomiting. Exam Vital Signs (past 8 hours): - 11/15/21 04:00 11/15/21 05:00 Temperature 97.5 F L Pulse Rate 93 H Respiratory Rate 17 Blood Pressure 134/60 Pulse Oximetry 95 96 Oxygen Delivery Method Room Air Oxygen Flow Rate 0 Oxygen Delivery Method Room Air Oxygen Flow Rate 0 Narrative Exam Narrative: 70-year-old female sitting in bedside chair having breakfast in no apparent distress. Dressing is intact. Scant serosanguineous drainage noted. Const General: cooperative Orientation: alert Objective Labs Result Diagrams: 11/13/21 07:15 11/13/21 07:15 Labs: FAX TO: ORDERED: WOUND Cx and GS COMMENTS: Comment LEFT 4TH TOE WOUND Procedure Result Verified Site Gram Stain Final 11/11/21-2311 White blood cells Occasional WBC seen Gram Positive Cocci 1+ Aerobic Culture for wounds Final 11/15/21-724 Group B Strep pos Skin Shandra Scant growth - Mixed skin shandra Organism 1 Strep agalactiae - (group b) Growth LIGHT Action to follow Further Workup Upon Request Organism 2 Staphylococcus aureus Growth LIGHT All Beta-hemolytic Streptococcus organisms are considered sensitive to penicillins and cephalosporins. 2. Staphylococcus aureus M.I.C. RX --------- --- * Daptomycin 0.5 S * Vancomycin <=0.5 S * Ciprofloxacin <=0.5 S * Clindamycin 0.25 S * Doxycycline <=0.5 S * Erythromycin <=0.25 S * Gentamicin <=0.5 S * Levofloxacin 0.25 S * Linezolid 2 S * Moxifloxacin <=0.25 S * Oxacillin Pollo 0.5 S * Rifampin <=0.5 S * Tetracycline <=1 S * Trimethoprim/Sulfamethoxazole <=10 S Anaerobic Culture Preliminary 11/14/21-1003 <No reportable results for this procedureLocated Within [facility] CLIA ID [id number] [address] [place] [address], [address] RUN DATE: 11/15/21 Specimen Inquiry PAGE 1 RUN TIME: 732 Name: Marissa Parikh Age/Sex: 70/F Attend Dr: Ganga Carlson D.O. Unit#: [id number] : 1950Location: AC 210-1 Re11/10/21 Disch: Status: ADM IN SPEC #: [id number] DORIAN: 11/10/21 STATUS: RES REQ #: [id number] SPDESC: RECD: 11/10/[address]: Adebayo Gunn P.A-C SOURCE: Blood ENTR: 11/10/[address]: Opal Escalante P.A-C FAX TO: ORDERED: Bcult Procedure Result Verified Site Blood Culture Preliminary 11/14/21 NO GROWTH AFTER 4 DAYS NO GROWTH AFTER 4 DAYS PFSH Medical History Diabetes Hyperlipidemia Hypertension Surgical History H/O: hysterectomy History of cholecystectomy History of left knee replacement Family History Father Cancer Mother COPD (chronic obstructive pulmonary disease) Social History household members: family Smoking Status: Former smoker alcohol intake: never Assessment & Plan Post-op Postoperative Procedures: Procedures Operation Date: 11/11/21 17:00 Actual Procedure Side Surgeon p Amputation of 4th digit foot Left Lilliana Stuart MD Postoperative day: 4 Postoperative status: doing well Postoperative status narrative: Patient progressing as expected status post left 4th toe amputation due to left foot diabetic foot ulcer with a necrotic 4th toe November 11, 2021. Postoperative plan narrative: Continue daily dressing changes Established with wound care as outpatient Follow-up with [facility] in 2 weeks. Home on oral antibiotics per hospitalist Discharge home when medically stable per hospitalist. Quality VTE Deep Vein Thrombosis/Pulmonary Embolism Present on Admission: No
[2021-11-15 07:51] VITALS: BP 134/51; PULSE 80; RESP 17; TEMP 36.4; O2SAT 97
[2021-11-15] MEDS: INSULIN LISPRO 100 UNIT/ML 3ML VIAL 7 UNIT SUBCUT (08:41)
[2021-11-15] MEDS: ENOXAPARIN 40 MG/0.4 ML SYRINGE SUBCUT (08:45)
[2021-11-15 08:47] VITALS: BP 134/51
[2021-11-15] MEDS: DOCUSATE 100 MG CAPSULE 200 MG PO (08:47)
[2021-11-15] MEDS: lisinopriL 20 MG TABLET PO (08:47)
[2021-11-15] MEDS: hydroCHLOROthiazide 25 MG TABLET 12.5 MG PO (08:47)
[2021-11-15] MEDS: SENNOSIDES 8.6 MG TABLET 17.2 MG PO (08:47)
[2021-11-15] MEDS: ASPIRIN EC 81 MG TABLET PO (08:47)
[2021-11-15] MEDS: IBUPROFEN 400 MG TABLET 800 MG PO (08:48)
--- NOTE | 2021-11-15 08:51 | P.DS_ITS ---
History of Present Illness History of Present Illness Date Patient Seen: 11/15/21 Time Patient Seen: 08:51 Chief complaint: Infected Lt Foot Narrative: This is a 70-year-old female with a past medical history of type 2 diabetes, hypertension, hyperlipidemia who presented with a worsening left foot infection for the past couple of days. Patient states that about a month ago she noticed that her 4th toe started to look infected, she followed up with her primary care doctor and her supervisor public message service as an outpatient. She received 10 day course of cephalexin which the patient stated improved her infection at least somewhat. She was recommended to see wound care but that had not happened yet, and she had been trying to do outpatient dressing changes. She noticed a worsening of her infection about 4 days ago with worsening redness. She also developed some generalized malaise, subjective fever but nothing measured, and decreased appetite. She denies any chest pain, palpitations, shortness of breath, or cough. In the emergency room, the patient was mildly hypertensive, but afebrile and the rest of her vital signs were unremarkable. Laboratory evaluation revealed mild leukocytosis with a WBC of 14.0. ESR was slightly elevated at 38. Chemistries revealed an elevated creatinine at 1.31, up from approximately a year ago when it was 0.9. Glucose was also elevated at 292. She had a mild transaminitis, CRP was markedly elevated at 24.4, and procalcitonin was 0.37. COVID-19 testing were negative. Foot x-ray revealed possible distal osteo, MRI was ordered for further evaluation. Patient was admitted for further management of left diabetic foot ulcer with cellulitis and possible osteomyelitis. Discharge Providers Provider Date of admission: 11/10/21 15:08 Discharge Date: 11/15/21 Primary care physician: Opal Escalante PA-C Consults: 11/10/21 17:02 Consult to Orthopedic Surgery Routine Comment: Consulting Provider: Lilliana Stuart Reason for consultation: Diabetic foot ulcer, osteomyelitis, small 4th toe L abscess 11/11/21 18:54 Consult to Discharge Planning Routine Comment: Consult to Physical Therapy Evaluate & Treat Comment: Physician Instructions: Evaluate and Treat Consult to Respiratory Therapy Evaluate & Treat Comment: Physician Instructions: Evaluate and treat 11/14/21 10:21 Consult to Inpatient Wound Care Nurse Routine Comment: Reason for consultation: left 4th toe amputation with daily dressing changes 11/14/21 16:23 Consult to Inpatient Wound Care Nurse Routine Comment: Reason for consultation: diabetic foot ulcer, s/p 4th toe amputation. Assessment/recommendations. Has provider been notified: No Discharge provider: Ganga Carlson DO Summary Hospital Course Discharge Diagnosis: 1. Left 4th toe diabetic foot ulcer with corresponding left foot cellulitis and osteomyelitis 2. Type 2 diabetes 3. Hypertension 4. Hyperlipidemia 5. MADIHA, resolved Hospital Course: This is a 70-year-old female with a history of type 2 diabetes, hypertension, hyperlipidemia who was admitted with a left 4th toe infected diabetic foot ulcer that was not responsive to antibiotics as an outpatient. She also had a corresponding cellulitis, and after initial imaging was determined to have likely osteomyelitis as well. Initially, antibiotic therapy was attempted but she had continued progression and pain. Left 4th toe amputation was performed by Orthopedic surgery. She was continued on IV antibiotics, and cultures ultimately grew MSSA and group B strep. She was initially on broad-spectrum antibiotics with cefepime and vancomycin, the patient does have a penicillin allergy. She was narrowed to ceftriaxone once cultures were resulted and given her penicillin allergy will be discharged home on Levofloxacin. she will follow- up with Orthopedic surgery in a couple of weeks as an outpatient, and I recommend that she check in with her primary care provider for continued diabetes management. While in the hospital her blood sugars remained controlled on her home therapies, and no changes to her chronic medications are recommended at this time. Time Spent with Patient Time spent: Greater than 30 minutes Exam Vital Signs (past 8 hours): - 11/15/21 04:00 11/15/21 05:00 11/15/21 07:51 Temperature 97.5 F L 97.5 F L Pulse Rate 93 H 80 Respiratory Rate 17 17 Blood Pressure 134/60 134/51 L Pulse Oximetry 95 96 97 Oxygen Delivery Method Room Air Oxygen Flow Rate 0 0 11/15/21 08:47 Temperature Pulse Rate Respiratory Rate Blood Pressure 134/51 L Pulse Oximetry Oxygen Delivery Method Oxygen Flow Rate Oxygen Delivery Method Room Air Oxygen Flow Rate 0 Narrative Exam Narrative: General:? Patient is well developed and well nourished, in no distress. Obese with BMI 37.6. HEENT:? Normocephalic, atraumatic, extraocular muscles intact, oral pharynx is clear and mucous membranes are moist. Neck: supple and symmetric, trachea is midline, no cervical adenopathy. Negative for JVD Chest:? Normal AP diameter and contour without kyphoscoliosis, no tachypnea, equal chest rise bilaterally. Lungs:? CTA b/l no wheezing rhonchi or rales. Cardio:?RRR no m/r/g. Abdomen: S NT ND. Musculoskeletal:? Muscle strength and tone are equal within normal limits, no deformity. Extremities: No edema or joint effusions. No cyanosis or clubbing. L foot in ruth ann wrap with gauze with dried s/s drainage. mild distal erythema. Neuro:? Alert and orientated x3,?no gross deficits noted of cranial nerves. Decreased sensation to bilateral lower extremities. Psych:? Patient has a well-kept appearance, appropriate affect, mental status attitude thought context and judgment are appropriate for age. Objective Labs Result Diagrams: 11/13/21 07:15 11/13/21 07:15 [facility] Medical History Diabetes Hyperlipidemia Hypertension Surgical History H/O: hysterectomy History of cholecystectomy History of left knee replacement Family History Father Cancer Mother COPD (chronic obstructive pulmonary disease) Social History household members: family Smoking Status: Former smoker alcohol intake: never Discharge Plan Discharge Plan Patient Disposition: Home Provider Discharge Comment: Continue daily dressing changes at home. Antibiotics sent for 10 additional days, please follow up with orthopedic surgery as an outpatient in the next two weeks. No changes to your home medications were necessary at this time. Discharge orders & Medications Prescriptions: New sennosides [senna] 8.6 mg Tablet 17.2 mg PO BEDTIME 14 Days Qty: 56 0RF pantoprazole 40 mg Tablet,Delayed Release (Dr/Ec) 40 mg PO 0700 14 Days Qty: 14 0RF oxycodone 5 mg Tablet 5 mg PO Q4HR PRN (Reason: Pain, Moderate (4-6)) 7 Days Qty: 30 0RF Continued glipizide 10 mg tablet 1 tab PO BID Label Comments: TAKE ONE TABLET BY MOUTH TWICE DAILY metformin 500 mg tablet extended release 24 hr 1 tab PO BID Label Comments: TAKE ONE TABLET BY MOUTH TWICE DAILY lovastatin 20 mg tablet 1 tab PO DAILY Label Comments: TAKE 1 TABLET BY MOUTH AT EVENING MEAL insulin aspart U-100 [Novolog Flexpen U-100 Insulin] 100 unit/mL (3 mL) insulin pen See Rx Instructions .ROUTE .COMPLEX Label Comments: INJECT 10 UNITS SUBCUTANEOUSLY BEFORE BREAKFAST, 10 UNITS BEFORE LUNCH, 15 UNITS BEFORE DINNER Rx Instructions: 1 ea subcutaneously Trulicity 0.75 mg/0.5 mL pen injector 1 ea SUBCUT QWEEK Label Comments: Inject 0.75 mg subcutaneously once a week for Diabetes Tresiba FlexTouch U-100 100 unit/mL (3 mL) insulin pen 1 ea SUBCUT DAILY Label Comments: Inject 28 units subcutaneously once a day ibuprofen 800 mg tablet 1 tab PO BID Label Comments: TAKE ONE TABLET BY MOUTH TWICE DAILY for pain lisinopril-hydrochlorothiazide 20-12.5 mg tablet 1 tab PO DAILY Label Comments: TAKE ONE TABLET BY MOUTH EVERY MORNING FOR HIGH BLOOD PRESSURE Follow up/Referrals: Lilliana Stuart MD [Physician] - 2 Weeks Opal Escalante PA-C [Primary Care Provider] - Diet/Activity/Treatments Diet: Diet as Tolerated and Carb-consistent/Diabetic Activity: As tolerated Discharge Data Primary Care Provider: Opal Escalante Quality VTE Deep Vein Thrombosis/Pulmonary Embolism Present on Admission: No
[2021-11-15] MEDS: METFORMIN XR 500 MG TABLET PO (08:59)
[2021-11-15] MEDS: glipiZIDE 5 MG TABLET 10 MG PO (08:59)
[2021-11-15 09:00] VITALS: O2SAT 97
--- NOTE | 2021-11-15 09:42 | PC.RNWOUND ---
Patient sitting in chair, has been premedicated for pain control, dressing with packing removed to Left 4th Digit Amputation site with a moderate amount of non-malodorous serosanguineous drainage to removed dressing. Wound is gently cleansed with saline. Wound edges are intact and attached, distal end of wound edge has maceration noted. Wound measures 5.5 x 1.5 x 1.3cm at longest, widest, and deepest margins, visible wound tissue is comprised of 90% red granulation, 10% slough. Dorsalis pedis pulse is palpable, posterior tibial pulse is faintly palpable, erythema and slight warmth noted to dorsum of foot. Wound is redressed as before with packing gauze, sterile gauze, kerlix, ruth ann. Patient tolerates cares well and without complaint except for grimace when packing placed. Patient verbalizes understanding of importance of tight control of blood glucose for optimal healing and to help prevent future issues, has a forefoot offloading shoe in room which patient says she can ambulate in fine with the surgical shoe on other foot at same time. Case management in to talk to patient about discharge planning.
--- NOTE | 2021-11-15 10:30 | PT.IPTN ---
Current Diagnoses Type 2 diabetes mellitus with foot ulcer (11/10/21) Type 2 diabetes mellitus without complications (11/10/21) Non-pressure chronic ulcer of other part of unspecified foot with unspecified severity (11/10/21) Unspecified open wound, unspecified foot, initial encounter (11/10/21) Surgery Performed Operation Date: 11/11/21 17:00 Actual Procedures p Amputation of 4th digit foot(Left) - Lilliana Stuart MD Physical Therapy Treatment Note M2 PT-IP Current Condition Start: 11/12/21 13:03 Freq: NEEDED Status: Active Protocol: Document 11/12/21 10:15 AB (Rec: 11/12/21 13:21 AB [id number]) Physical Therapy Current Condition Current Condition Evaluation Date 11/12/21 Treatment Diagnosis s/p L 4th toe amputation; difficulty in walking Onset Date 11/10/21 M3 PT-IP Subjective Start: 11/12/21 13:03 Freq: NEEDED Status: Active Protocol: Document 11/15/21 10:16 KS (Rec: 11/15/21 11:12 KS [id number]) Subjective Physical Therapy Visit Type Type Treatment Note Visit Start Time 10:16 Visit Stop Time 10:30 Total Visit Minutes 14 Number of INTERACTIVE DEVELOPER Visits 1 Physical Therapy Visit Comments Patient Comments Pt is willing to participate with PT M4 PT-IP Mobility and Gait Start: 11/12/21 13:03 Freq: NEEDED Status: Active Protocol: Document 11/15/21 10:16 KS (Rec: 11/15/21 11:12 KS [id number]) PT-Bed Mobility Assessment Scooting Scooting to Edge of Bed Contact Guard Assistance PT-Transfer Assessment Sit to and From Stand Sit to and from Stand Contact Guard Assistance,1 Person Assistance,Use of Upper Extremities Equipment Transfer Assistive Device Gait Belt,Front Wheeled Walker Orthotic/Prosthetic Devices or Brace: Yes Transfers Transfer Destination Bed,Toilet Transfer Technique Pt ambulated w/ FWW Transfer Ability Level of Assist Contact Guard Assistance,1 Person Assistance,Use of Upper Extremities Comments Mobility Comments Pt in chair upon arrival and agreeable to ambulate. Applied post op shoes. CGA and momentum for sit<>Stand w/ FWW . Pt then requested to use toilet. She ambulated to toilet w/ FWW w/ cues for upright posture and performed her own pericare and sit<> Stand from toilet independently using hand rails . Pt then ambulated additional ~50 ft w/ FWW SBA and sat at EOB. Pt states she feels able to go home w/ her sister who is a caregiver. Pt left seated EOB as requested w/ call light and tray table. Gait Assessment Gait Gait Assistance Required: Standby Assistance,1 Person Assist Distance (Feet) 50 Able to Maintain Weight Bearing Status Yes During Gait Assistive Devices Assistive Device Gait Belt,Front Wheeled Walker Orthotic/Prosthetic Devices or Brace: Yes Gait Deviations General Gait Pattern Decreased Stride Length, Decreased Feet Clearance,Step- to Gait Factors Limiting Gait Function Factors Limiting Gait Function Decreased Activity Tolerance, Decreased Strength,Limited Range of Motion,Pain,Poor Balance Comments Gait Comments Pt limited by low tolerance for activity, but safe w/ FWW SBA w/ min cues for upright posture. Stair Climbing Assessment Comments Stair Climbing Comments Did not re-assess. Pt states she feels capable to complete at home. PT-Balance Assessment Sitting Balance and Reactions Static Sitting Balance Ability Normal Dynamic Sitting Balance Ability Good Standing Balance and Reactions Static Standing Balance Ability Good Dynamic Standing Balance Ability Fair Device Used FWW M5 PT-IP Objective Assessments Start: 11/12/21 13:03 Freq: NEEDED Status: Active Protocol: Document 11/12/21 10:15 AB (Rec: 11/12/21 13:21 AB [id number]) Orientation Orientation/Cognition Level of Alertness Alert Orientation Name,Place,Situation Language Function Ability Hard of Hearing Safety Awareness Decreased Safety Awareness Memory Description No Deficits Noted Gross Range of Motion Lower Extremity ROM Assessment Within Functional Limits Strength Lower Extremity Strength Hip 4-/5 Knee 4-/5 Muscle Tone Muscle Tone WNL Yes M6 PT-IP Treatment Start: 11/12/21 13:03 Freq: NEEDED Status: Active Protocol: Document 11/15/21 10:16 KS (Rec: 11/15/21 11:12 KS [id number]) Physical Therapy Treatment Education Education Provided Weight Bearing Status,Safety M7 PT-IP Assessment and Plan Start: 11/12/21 13:03 Freq: NEEDED Status: Active Protocol: Document 11/15/21 10:16 KS (Rec: 11/15/21 11:12 KS [id number]) PT Summary Assessment and Plan Summary Impairments Pain,ROM,Strength,Balance, Coordination,Sensation,Tone, Cognition,Bed Mobility, Transfers,Gait,Activity Tolerance Progress Towards Goals Progressing Toward Goals,Slow Progress due to Activity Tolerance Assessment Summary Pt CGA for sit<>Stand from chair using arm rests and able to stand independently from toilet using grab bars. She ambulated 50 ft w/ FWW w/ cues for upright posture and only SBA. Pt states her sister is a caregiver and will be able to help her at home and she feels safe to complete stairs upon return home. She would benefit from HHPT or OPPT to improve strength, balance, and activity tolerance. Goals Bed Mobility Goal Standby Assistance Transfer Goal Standby Assistance,Front Wheeled Walker Gait Goal Standby Assistance,Front Wheel Walker Gait Distance 150 Other Goals up/down 4 steps L rail ascending SBA Days to Meet Goals 10 Frequency of Treatment Frequency Of Treatment Twice a Day Treatment Plan Physical Therapy Treatment Plan Bed Mobility Training,Transfer Training,Gait Training, Therapeutic Exercise,Balance Retraining,Post Op Education, Discharge Planning,Hot or Cold Pack,Neuromuscular Re-ed, Coordination Retraining,Manual Therapy Weight Bearing Status Weight Bearing Status Non-Weight Bearing Allowed Weight Bearing Amount (enter % LLE: heel weight bearing only or #) (%) Recommendations To Nursing Amount of Assist Needed Standby Assistance,1 Person Assist Discharge Recommendations PT Discharge Recommendations Home with Assistance,Home Health Equipment Needed for Home Before raised toilet seat with Discharge handles Transportation Needs at Discharge Private Vehicle
--- NOTE | 2021-11-15 11:07 | PC.NURSE ---
Pt is dressed and ready for discharge home with Sister. Went over d\c instructions with Pt-discussed d\c meds, time of last dose, reviewed stroke education, mobility recommendations, Pt has ortho shoe on both feet, shallot packer in to see Pt and change dressing, Home Health is already set up, reminded Pt to drink plenty of fluids to prevent constipation or dehydration, and reminded Pt to take her antibiotics as ordered. Pt is to follow up in [address] Stuart. Pt denies further questions and will be discharged home with her Sister when she arrives. All belongings have been packed up and are ready to go with Pt.
[2021-11-15 12:00] VITALS: BP 127/47; PULSE 91; RESP 17; TEMP 36.6; O2SAT 95
--- NOTE | 2021-11-15 12:07 | CM.DPNOTE ---
Discharge Planning Note: Patient readying for discharge. [facility] has referral for RN for wound care but they cannot start until 11/21. Per wound care nurse Bárbara and patient her family (son and kenia in law who is a DIRECTOR EXPORT) have been taught by nurse to perform daily wound care. This DCP spoke with Lindsey at [facility] wound care, she contacted patient and appointment for 11/23/21. I will let patient know the plan. Will need supplies to last a week, will notify nurse. Sister is driving up from [place] to provide transport home for patient. Noris Licona RN/DCP
--- NOTE | 2021-11-15 12:35 | PC.NURSE ---
Pt out via w/c by SLIDE MACHINE TENDER to POV with sister and all belongings.
== END 2021-11-15 12:36 | disposition home or self-care (01) | DRG 617 ==
LOC: ED 13:19 → AC 15:09
PROVIDERS: Orthopaedic Surgery; Admitting Provider Internal Medicine; Emergency Provider Physician Assistant Medical; PCP Physician Assistant Medical; Referring Provider Physician Assistant Medical; Visit Provider Internal Medicine
PROC: 0Y6W0Z0 Detachment at Left 4th Toe, Complete, Open Approach (ICD-10-PCS; principal; 2021-11-11 17:00)
DX: E11.69 Type 2 diabetes mellitus with other specified complication (principal); M86.8X7 Other osteomyelitis, ankle and foot; L03.032 Cellulitis of left toe; E11.621 Type 2 diabetes mellitus with foot ulcer; L97.529 Non-pressure chronic ulcer of other part of left foot with unspecified severity; L97.524 Non-pressure chronic ulcer of other part of left foot with necrosis of bone; N17.9 Acute kidney failure, unspecified; I10 Essential (primary) hypertension; E78.5 Hyperlipidemia, unspecified; B95.1 Streptococcus, group B, as the cause of diseases classified elsewhere; B95.61 Methicillin susceptible Staphylococcus aureus infection as the cause of diseases classified elsewhere; E11.65 Type 2 diabetes mellitus with hyperglycemia; Z79.84 Long term (current) use of oral hypoglycemic drugs; Z79.4 Long term (current) use of insulin; Z79.899 Other long term (current) drug therapy; Z87.891 Personal history of nicotine dependence; Z20.822 Contact with and (suspected) exposure to COVID-19
CPT/HCPCS: 36415; 71045; 73630; 73720; 80048; 80053; 80202; 82962; 83036; 83605; 83735; 84145; 84484; 85025; 85651; 86140; 87040; 87070; 87075; 87077; 87147; 87176; 87186; 87205; 87635; 93005; 93010; 97116; 97162; 97530; 99283; C9803; J0692; J0696; J1650; J1815; J2250; J2270; J2405; J2704; J2765; J3010

== ENCOUNTER → 2021-11-23 14:05 | Outpatient (CLI) | payer OTHER, MEDICAID, SELFPAY ==
[2021-11-10 16:20] VITALS: BMI 37.5
== END ==
PROVIDERS: PCP Physician Assistant Medical; Referring Provider Orthopaedic Surgery; Visit Provider Family Medicine
DX: T81.89XA Other complications of procedures, not elsewhere classified, initial encounter (principal); S91.302A Unspecified open wound, left foot, initial encounter; L08.9 Local infection of the skin and subcutaneous tissue, unspecified; E11.51 Type 2 diabetes mellitus with diabetic peripheral angiopathy without gangrene; E11.40 Type 2 diabetes mellitus with diabetic neuropathy, unspecified; Z89.422 Acquired absence of other left toe(s); Z79.4 Long term (current) use of insulin; Z79.84 Long term (current) use of oral hypoglycemic drugs
CPT/HCPCS: 11042; 87070; 87075; 87077; 87205; 93922; 99213; 99214

== ENCOUNTER → 2021-11-28 15:14 | Outpatient (CLI) | payer OTHER, SELFPAY ==
[2021-11-10 16:20] VITALS: BMI 37.5
== END ==
PROVIDERS: PCP Physician Assistant Medical; Referring Provider Physician Assistant Medical; Visit Provider Family Medicine
DX: T81.89XA Other complications of procedures, not elsewhere classified, initial encounter (principal); S91.302A Unspecified open wound, left foot, initial encounter; E11.51 Type 2 diabetes mellitus with diabetic peripheral angiopathy without gangrene; E11.40 Type 2 diabetes mellitus with diabetic neuropathy, unspecified; Z89.422 Acquired absence of other left toe(s); Z79.4 Long term (current) use of insulin; Z79.84 Long term (current) use of oral hypoglycemic drugs
CPT/HCPCS: 11043; 97607

== ENCOUNTER → 2021-11-30 15:00 | Outpatient (CLI) | payer OTHER, SELFPAY ==
[2021-11-10 16:20] VITALS: BMI 37.5
== END ==
PROVIDERS: PCP Physician Assistant Medical; Referring Provider Physician Assistant Medical; Visit Provider Family Medicine
DX: T81.89XA Other complications of procedures, not elsewhere classified, initial encounter (principal); S91.302A Unspecified open wound, left foot, initial encounter; Z89.422 Acquired absence of other left toe(s)
CPT/HCPCS: 97607

== ENCOUNTER → 2021-12-07 13:19 | Outpatient (CLI) | payer OTHER, SELFPAY ==
[2021-11-10 16:20] VITALS: BMI 37.5
== END ==
PROVIDERS: PCP Physician Assistant Medical; Referring Provider Physician Assistant Medical; Visit Provider Family Medicine
DX: E11.621 Type 2 diabetes mellitus with foot ulcer (principal); L97.522 Non-pressure chronic ulcer of other part of left foot with fat layer exposed; E11.42 Type 2 diabetes mellitus with diabetic polyneuropathy; Z89.422 Acquired absence of other left toe(s); I73.9 Peripheral vascular disease, unspecified
CPT/HCPCS: 97607; 99212

== ENCOUNTER → 2021-12-14 15:16 | Outpatient (CLI) | payer OTHER, SELFPAY | PROVIDERS: PCP Physician Assistant Medical; Referring Provider Physician Assistant Medical; Visit Provider Family Medicine | DX: T87.89 Other complications of amputation stump (principal); E11.621 Type 2 diabetes mellitus with foot ulcer; L97.522 Non-pressure chronic ulcer of other part of left foot with fat layer exposed; E11.42 Type 2 diabetes mellitus with diabetic polyneuropathy; Z89.422 Acquired absence of other left toe(s); E11.51 Type 2 diabetes mellitus with diabetic peripheral angiopathy without gangrene | CPT/HCPCS: 97607; 99212 ==

== ENCOUNTER → 2021-12-21 13:04 | Outpatient (CLI) | payer OTHER, SELFPAY | PROVIDERS: PCP Physician Assistant Medical; Referring Provider Physician Assistant Medical; Visit Provider Family Medicine | DX: E11.621 Type 2 diabetes mellitus with foot ulcer (principal); T87.89 Other complications of amputation stump; L97.522 Non-pressure chronic ulcer of other part of left foot with fat layer exposed; E11.51 Type 2 diabetes mellitus with diabetic peripheral angiopathy without gangrene; L08.9 Local infection of the skin and subcutaneous tissue, unspecified; R60.0 Localized edema; E11.40 Type 2 diabetes mellitus with diabetic neuropathy, unspecified; L53.9 Erythematous condition, unspecified; Z89.422 Acquired absence of other left toe(s) | CPT/HCPCS: 11042; 36415; 80053; 85025; 85651; 86140; 87070; 87075; 87077; 87147; 87176; 87186; 87205; 99212; 99214 ==

== ENCOUNTER → 2021-12-21 13:55 | Outpatient (CLI) | payer OTHER, SELFPAY ==
[2021-12-21 14:42] LABS: Add Manual Diff / Slide Review NO; Basophils Absolute Auto 100 /uL (0-100); Basophils Percent Auto 1.1 % (0-2); Eosinophils Absolute Auto 100 /uL (0-450); Eosinophils Percent Auto 1.8 % (2-4); Hematocrit 35.6 % (36-46); Hemoglobin 12.6 g/dL (12.0-16.0); Lymphocytes Absolute Auto 2000 /uL (1100-4500); Lymphocytes Percent Auto 27.4 % (25-40); Mean Corpuscular HGB Conc 35.2 % (30-36); Mean Corpuscular Hemoglobin 31.3 PG (26-34); Mean Corpuscular Volume 88.8 fL (80-100); Monocytes Absolute Auto 400 /uL (0-900); Monocytes Percent Auto 5.7 % (3-14); Neutrophils Absolute Auto 4600 /uL (1500-7000); Platelet Count 327 X10^3/uL (150-400); Red Blood Cell Count 4.01 X10^6/uL (4.0-5.2); Red Cell Distribution Width 13.6 % (11.6-14.8); White Blood Cell Count 7.2 X10^3/uL (4.5-11.0)
[2021-12-21 15:23] LABS: Alanine Aminotransferase 26 IU/L (<35); Albumin Globulin Ratio 1.3 (1.0-2.8); Alkaline Phosphatase 103 U/L (38-126); Aspartate Aminotransferase 23 IU/L (14-36); Bilirubin Total 0.4 mg/dL (0.2-1.3); Blood Urea Nitrogen 31 mg/dL (7-17); C-Reactive Protein Quant 1.3 mg/dL (<1.0); Calcium 9.7 mg/dL (8.4-10.2); Carbon Dioxide 25 mmol/L (22-32); Chloride 104 mmol/L (98-107); Estimated Glomerular Filt Rate > 60 mL/min (>60); Globulin 3.1 g/dL (1.7-4.1); Glucose 143 mg/dL (80-110); HEMOLYSIS < 15 (0-50); Potassium 4.5 mmol/L (3.4-5.1); Sodium 139 mmol/L (137-145); Total Protein 7.1 g/dL (6.3-8.2)
[2021-12-21 15:35] LABS: Erythrocyte Sedimentation Rate 36 MM/HR (0-20)
== END ==
PROVIDERS: PCP Physician Assistant Medical; Referring Provider Family Medicine; Visit Provider Family Medicine
DX: L08.9 Local infection of the skin and subcutaneous tissue, unspecified (principal)
CPT/HCPCS: 36415; 80053; 85025; 85651; 86140; 87070; 87075; 87176; 87205

== ENCOUNTER → 2021-12-28 13:13 | Outpatient (CLI) | payer OTHER, SELFPAY | PROVIDERS: PCP Physician Assistant Medical; Referring Provider Physician Assistant Medical; Visit Provider Family Medicine | DX: E11.628 Type 2 diabetes mellitus with other skin complications (principal); T87.89 Other complications of amputation stump; E11.40 Type 2 diabetes mellitus with diabetic neuropathy, unspecified; E11.51 Type 2 diabetes mellitus with diabetic peripheral angiopathy without gangrene; L08.9 Local infection of the skin and subcutaneous tissue, unspecified; Z89.422 Acquired absence of other left toe(s); R60.0 Localized edema; L53.9 Erythematous condition, unspecified | CPT/HCPCS: 99213; 99214 ==

== ENCOUNTER → 2022-01-11 13:20 | Outpatient (CLI) | payer OTHER, SELFPAY | PROVIDERS: PCP Physician Assistant Medical; Referring Provider Physician Assistant Medical; Visit Provider Family Medicine | DX: E11.621 Type 2 diabetes mellitus with foot ulcer (principal); L97.509 Non-pressure chronic ulcer of other part of unspecified foot with unspecified severity; E11.40 Type 2 diabetes mellitus with diabetic neuropathy, unspecified; E11.51 Type 2 diabetes mellitus with diabetic peripheral angiopathy without gangrene; R60.0 Localized edema; Z89.422 Acquired absence of other left toe(s); L08.9 Local infection of the skin and subcutaneous tissue, unspecified; Z79.2 Long term (current) use of antibiotics | CPT/HCPCS: 11042; 36415; 80053; 85025; 85651; 86140; 99214 ==

== ENCOUNTER → 2022-01-11 13:57 | Outpatient (CLI) | payer OTHER, SELFPAY ==
[2022-01-11 14:20] LABS: Add Manual Diff / Slide Review NO; Basophils Absolute Auto 100 /uL (0-100); Eosinophils Absolute Auto 100 /uL (0-450); Eosinophils Percent Auto 1.4 % (2-4); Hematocrit 35.7 % (36-46); Hemoglobin 12.3 g/dL (12.0-16.0); Lymphocytes Absolute Auto 2100 /uL (1100-4500); Lymphocytes Percent Auto 26.2 % (25-40); Mean Corpuscular HGB Conc 34.5 % (30-36); Mean Corpuscular Hemoglobin 30.6 PG (26-34); Mean Corpuscular Volume 88.8 fL (80-100); Monocytes Absolute Auto 500 /uL (0-900); Monocytes Percent Auto 5.8 % (3-14); Neutrophils Absolute Auto 5300 /uL (1500-7000); Neutrophils Percent Auto 65.6 % (50-75); Platelet Count 299 X10^3/uL (150-400); Red Blood Cell Count 4.02 X10^6/uL (4.0-5.2); Red Cell Distribution Width 13.6 % (11.6-14.8)
[2022-01-11 15:15] LABS: Erythrocyte Sedimentation Rate 34 MM/HR (0-20)
[2022-01-11 16:02] LABS: Alanine Aminotransferase 32 IU/L (<35); Albumin 3.9 g/dL (3.5-5.0); Albumin Globulin Ratio 1.3 (1.0-2.8); Alkaline Phosphatase 108 U/L (38-126); Aspartate Aminotransferase 24 IU/L (14-36); BUN Creatinine Ratio 38.5 (6-22); Bilirubin Total 0.4 mg/dL (0.2-1.3); Blood Urea Nitrogen 37 mg/dL (7-17); C-Reactive Protein Quant 0.9 mg/dL (<1.0); Calcium 9.2 mg/dL (8.4-10.2); Carbon Dioxide 23 mmol/L (22-32); Chloride 104 mmol/L (98-107); Estimated Glomerular Filt Rate > 60 mL/min (>60); Globulin 2.9 g/dL (1.7-4.1); Glucose 172 mg/dL (80-110); HEMOLYSIS < 15 (0-50); Potassium 4.6 mmol/L (3.4-5.1); Sodium 138 mmol/L (137-145); Total Protein 6.8 g/dL (6.3-8.2)
== END ==
PROVIDERS: PCP Physician Assistant Medical; Referring Provider Family Medicine; Visit Provider Family Medicine
DX: E11.621 Type 2 diabetes mellitus with foot ulcer (principal); L97.509 Non-pressure chronic ulcer of other part of unspecified foot with unspecified severity
CPT/HCPCS: 36415; 80053; 85025; 85651; 86140

== ENCOUNTER → 2022-01-18 14:49 | Outpatient (CLI) | payer OTHER, SELFPAY | PROVIDERS: PCP Physician Assistant Medical; Referring Provider Physician Assistant Medical; Visit Provider Family Medicine | DX: E11.621 Type 2 diabetes mellitus with foot ulcer (principal); T87.89 Other complications of amputation stump; L97.522 Non-pressure chronic ulcer of other part of left foot with fat layer exposed; R60.0 Localized edema; E11.42 Type 2 diabetes mellitus with diabetic polyneuropathy; E11.51 Type 2 diabetes mellitus with diabetic peripheral angiopathy without gangrene; L08.9 Local infection of the skin and subcutaneous tissue, unspecified; Z79.2 Long term (current) use of antibiotics; Z89.422 Acquired absence of other left toe(s) | CPT/HCPCS: 97597; 99213; 99214 ==

== ENCOUNTER → 2022-02-02 10:14 | Outpatient (CLI) | payer OTHER, SELFPAY | PROVIDERS: PCP Physician Assistant Medical; Referring Provider Physician Assistant Medical; Visit Provider Family Medicine | DX: E11.621 Type 2 diabetes mellitus with foot ulcer (principal); L08.9 Local infection of the skin and subcutaneous tissue, unspecified; T87.81 Dehiscence of amputation stump; L97.522 Non-pressure chronic ulcer of other part of left foot with fat layer exposed; L03.116 Cellulitis of left lower limb; E11.42 Type 2 diabetes mellitus with diabetic polyneuropathy; E11.51 Type 2 diabetes mellitus with diabetic peripheral angiopathy without gangrene; R60.0 Localized edema; Z89.422 Acquired absence of other left toe(s); L08.89 Other specified local infections of the skin and subcutaneous tissue; Z79.2 Long term (current) use of antibiotics | CPT/HCPCS: 36415; 80053; 85025; 85651; 86140; 87070; 87075; 87077; 87147; 87186; 87205; 99212; 99213 ==

== ENCOUNTER → 2022-02-02 10:42 | Outpatient (CLI) | payer OTHER, SELFPAY ==
[2022-02-02 11:56] LABS: Add Manual Diff / Slide Review NO; Basophils Absolute Auto 100 /uL (0-100); Eosinophils Absolute Auto 100 /uL (0-450); Eosinophils Percent Auto 2.2 % (2-4); Hemoglobin 12.2 g/dL (12.0-16.0); Lymphocytes Absolute Auto 1800 /uL (1100-4500); Lymphocytes Percent Auto 28.5 % (25-40); Mean Corpuscular HGB Conc 34.8 % (30-36); Mean Corpuscular Hemoglobin 31.2 PG (26-34); Mean Corpuscular Volume 89.6 fL (80-100); Monocytes Absolute Auto 400 /uL (0-900); Monocytes Percent Auto 6.1 % (3-14); Neutrophils Absolute Auto 3900 /uL (1500-7000); Neutrophils Percent Auto 62.2 % (50-75); Platelet Count 273 X10^3/uL (150-400); Red Cell Distribution Width 13.7 % (11.6-14.8); White Blood Cell Count 6.2 X10^3/uL (4.5-11.0)
[2022-02-02 12:06] LABS: Alanine Aminotransferase 89 IU/L (<35); Albumin 4.1 g/dL (3.5-5.0); Albumin Globulin Ratio 1.2 (1.0-2.8); Alkaline Phosphatase 146 U/L (38-126); Aspartate Aminotransferase 49 IU/L (14-36); Bilirubin Total 0.5 mg/dL (0.2-1.3); Blood Urea Nitrogen 30 mg/dL (7-17); C-Reactive Protein Quant 0.9 mg/dL (<1.0); Calcium 9.4 mg/dL (8.4-10.2); Carbon Dioxide 24 mmol/L (22-32); Chloride 105 mmol/L (98-107); Estimated Glomerular Filt Rate > 60 mL/min (>60); Globulin 3.4 g/dL (1.7-4.1); Glucose 136 mg/dL (80-110); HEMOLYSIS < 15 (0-50); Potassium 4.3 mmol/L (3.4-5.1); Sodium 142 mmol/L (137-145); Total Protein 7.5 g/dL (6.3-8.2)
[2022-02-02 12:13] LABS: Erythrocyte Sedimentation Rate 35 MM/HR (0-20)
== END ==
PROVIDERS: PCP Physician Assistant Medical; Referring Provider Family Medicine; Visit Provider Family Medicine
DX: E11.621 Type 2 diabetes mellitus with foot ulcer (principal); L08.9 Local infection of the skin and subcutaneous tissue, unspecified
CPT/HCPCS: 36415; 80053; 85025; 85651; 86140

== ENCOUNTER → 2022-02-09 12:58 | Outpatient (CLI) | payer OTHER, SELFPAY | PROVIDERS: PCP Physician Assistant Medical; Referring Provider Physician Assistant Medical; Visit Provider Family Medicine | DX: E11.621 Type 2 diabetes mellitus with foot ulcer (principal); T87.89 Other complications of amputation stump; L97.522 Non-pressure chronic ulcer of other part of left foot with fat layer exposed; E11.42 Type 2 diabetes mellitus with diabetic polyneuropathy; E11.51 Type 2 diabetes mellitus with diabetic peripheral angiopathy without gangrene; R60.0 Localized edema; Z89.422 Acquired absence of other left toe(s); Z79.2 Long term (current) use of antibiotics | CPT/HCPCS: 99213 ==

== ENCOUNTER → 2022-02-23 10:56 | Outpatient (CLI) | payer OTHER, SELFPAY ==
--- NOTE | 2022-02-23 10:57 | DI.US.S_ITS ---
PROCEDURE: US ARTERIAL DUPLEX LE LT INDICATIONS: evaluate for arterial occlusion and stenosis TECHNIQUE: Color and pulse Doppler interrogation was performed of the left lower extremity arterial system, with image documentation. COMPARISON: None. FINDINGS: Common femoral artery: 156 cm/sec, with biphasic flow. Deep femoral artery: 88 cm/sec, with biphasic flow. Proximal superficial femoral artery: 162 cm/sec, with monophasic flow. Mid superficial femoral artery: 191 cm/sec, with monophasic flow. Distal superficial femoral artery: 148 cm/sec, with monophasic flow. Popliteal artery: 76 cm/sec, with monophasic flow. Posterior tibial artery: 26 cm/sec, with monophasic flow. Anterior tibial artery/dorsalis pedis: 87 cm/sec, with monophasic flow. Yip-scale imaging description: SFA imaging is challenging relative to depth the vessel. The presence of monophasic waveforms from the proximal SFA distally suggest significant disease. IMPRESSION: Findings suggest significant arterial disease, with monophasic waveforms from the proximal SFA distally. Comment: Consider aorta/runoff MRA versus CT angiography for further evaluation. Dictated by: Robin Mohr M.D. on 02/23/2022 at 15:38 Approved by: Robin Mohr M.D. on 02/23/2022 at 15:41
== END ==
PROVIDERS: PCP Physician Assistant Medical; Referring Provider Family Medicine; Visit Provider Family Medicine
DX: E11.621 Type 2 diabetes mellitus with foot ulcer (principal); L97.522 Non-pressure chronic ulcer of other part of left foot with fat layer exposed
CPT/HCPCS: 93926

== ENCOUNTER → 2022-02-23 13:13 | Outpatient (CLI) | payer OTHER, SELFPAY | PROVIDERS: PCP Physician Assistant Medical; Referring Provider Physician Assistant Medical; Visit Provider Family Medicine | DX: E11.621 Type 2 diabetes mellitus with foot ulcer (principal); L97.522 Non-pressure chronic ulcer of other part of left foot with fat layer exposed; E11.42 Type 2 diabetes mellitus with diabetic polyneuropathy; Z89.422 Acquired absence of other left toe(s); E11.51 Type 2 diabetes mellitus with diabetic peripheral angiopathy without gangrene; R94.5 Abnormal results of liver function studies | CPT/HCPCS: 93926; 99212; 99213 ==

== ENCOUNTER → 2022-03-09 13:59 | Outpatient (CLI) | payer OTHER, SELFPAY | PROVIDERS: PCP Physician Assistant Medical; Referring Provider Physician Assistant Medical; Visit Provider Family Medicine | DX: E11.621 Type 2 diabetes mellitus with foot ulcer (principal); L97.522 Non-pressure chronic ulcer of other part of left foot with fat layer exposed; E11.42 Type 2 diabetes mellitus with diabetic polyneuropathy; Z89.422 Acquired absence of other left toe(s); I73.9 Peripheral vascular disease, unspecified | CPT/HCPCS: 99211; 99213 ==

== ENCOUNTER 2022-05-20 22:36 | Inpatient (IN) | payer OTHER, SELFPAY ==
[2022-05-20 22:41] VITALS: PULSE 136; O2SAT 96
[2022-05-20 22:43] VITALS: BP 125/60; PULSE 128; O2SAT 96
[2022-05-20 22:47] VITALS: BP 125/60; PULSE 134; RESP 24; TEMP 36; O2SAT 95; BMI 36.1
[2022-05-20 23:00] VITALS: PULSE 117; RESP 20; O2SAT 96
[2022-05-20 23:02] VITALS: BP 138/64; PULSE 117; RESP 22; O2SAT 94
[2022-05-20 23:25] LABS: Add Manual Diff / Slide Review NO; Basophils Absolute Auto 0 /uL (0-100); Basophils Percent Auto 0.4 % (0-2); Eosinophils Absolute Auto 100 /uL (0-450); Eosinophils Percent Auto 0.7 % (2-4); Hematocrit 32.1 % (36-46); Hemoglobin 11.1 g/dL (12.0-16.0); INR 1.1 (0.9-1.3); Lymphocytes Absolute Auto 800 /uL (1100-4500); Mean Corpuscular HGB Conc 34.5 % (30-36); Mean Corpuscular Hemoglobin 30.4 PG (26-34); Mean Corpuscular Volume 88.4 fL (80-100); Monocytes Absolute Auto 500 /uL (0-900); Monocytes Percent Auto 3.6 % (3-14); Neutrophils Absolute Auto 11400 /uL (1500-7000); Neutrophils Percent Auto 89.3 % (50-75); Platelet Count 250 X10^3/uL (150-400); Prothrombin Time 12.1 SECONDS (10.1-12.7); Red Blood Cell Count 3.64 X10^6/uL (4.0-5.2); Red Cell Distribution Width 14.8 % (11.6-14.8); White Blood Cell Count 12.7 X10^3/uL (4.5-11.0)
--- NOTE | 2022-05-20 23:25 | ED_ITS ---
HPI - Nausea/Vomiting/Diarrhea General Chief complaint: Nausea/Vomiting/Diarrhea Stated complaint: N/V, SOB, Sweats, Diabetic Time Seen by Provider: 05/20/22 23:00 Source: patient, family, RN notes reviewed and old records reviewed Mode of arrival: Ambulatory Limitations: no limitations History of Present Illness HPI Narrative: This is a 71-year-old female history of insulin-dependent diabetes, hypertension, dyslipidemia with chronic neuropathy and prior amputation of the toe in November of 2021 for infection. Patient presents to the emergency department with complaint of generally feeling unwell sweats at daytime and nighttime. Patient states usually gets hot sweats at night but not during the day. She is had nausea and vomiting at least 1 or 2 times a day for at least last week. She states her maximum temperature at home has been 98 F. She has had some cough she describes pain in her chest with the ribs with cough and from vomiting. Patient states it hurts with movement. Patient denies any diarrhea she states she is been a little constipated but had a bowel movement yesterday. No black or bloody stools. She has noted increasing frequency with urination but no dysuria. She states she is been thirsty pretty much regularly. She states shortness of breath but states she typically has shortness of breath. She denies any chest pain or pressure. No orthopnea. No swelling in her extremitie s. No syncope but has felt lightheaded. She denies any new weakness. She does have a history of amputation of her 4th toe on her left foot, hysterectomy, cholecystectomy, knee replacement but no cardiac interventions. States her glucoses have been trending upwards she is been running 100-200 typically in the morning occasionally higher 2 to 300s but occasionally 400 in the evenings. She states when her glucoses higher that is when she tends to feel worse. She states she is allergic to codeine and Augmentin. No tobacco, no alcohol, no illicit. Her primary care is [facility] in [place]. Patient is not currently seeing any subspecialty providers she is no longer following with Wound Care she states her foot has healed. Related Data Home Medications Medication Instructions Recorded Confirmed dulaglutide 0.75 mg/0.5 mL 1 ea SUBCUT QWEEK 11/10/21 11/10/21 subcutaneous pen injector ([facility]) glipizide 10 mg tablet 1 tab PO BID 11/10/21 11/10/21 ibuprofen 800 mg tablet 1 tab PO BID 11/10/21 11/10/21 insulin aspart U-100 100 unit/mL See Rx Instructions .Route .COMPLEX 11/10/21 11/10/21 (3 mL) subcutaneous pen (Novolog Flexpen U-100 Insulin aspart) insulin degludec 100 unit/mL (3 1 ea SUBCUT DAILY 11/10/21 11/10/21 mL) subcutaneous pen (Tresiba FlexTouch U-100 insulin) lisinopril 20 1 tab PO DAILY 11/10/21 11/10/21 mg-hydrochlorothiazide 12.5 mg tablet lovastatin 20 mg tablet 1 tab PO DAILY 11/10/21 11/10/21 metformin 500 mg tablet,extended 1 tab PO BID 11/10/21 11/10/21 release 24 hr Allergies Allergy/AdvReac Type Severity Reaction Status Date / Time codeine Allergy Severe ITCHING Verified 05/21/22 01:44 amoxicillin [From Augmentin] Allergy Verified 05/21/22 01:44 clavulanic acid Allergy Verified 05/21/22 01:44 [From Augmentin] unknown antibiotic Allergy Mild Uncoded 05/21/22 01:44 Review of Systems Review of Systems ROS Unobtainable: All systems reviewed & are unremarkable except as noted in HPI and below Patient History Medical History Diabetes Hyperlipidemia Hypertension Surgical History H/O: hysterectomy History of cholecystectomy History of left knee replacement Family History Father Cancer Mother COPD (chronic obstructive pulmonary disease) Social History household members: family Smoking Status: Former smoker alcohol intake: never Smoking Status: Former smoker Substance Use Type: does not use Exam Narrative Exam Narrative: GEN: Obese female, alert and oriented x 3, patient appears to be in mild distress. HEENT: Atraumatic, pupils are equal round reactive to light, extraocular movements are intact, nares are clear, TMs are clear with no fluid, there is no conjunctival pallor. Throat is clear without any exudates, erythema, tonsillar enlargement or uvular deviation HEART: Regular rate and rhythm without murmur, clicks, rubs. No carotid bruits, pulses are equal in upper and lower extremities LUNGS:Lungs clear to auscultation, no wheezes, rales, crackles, chest moves symmetrically ABD:bowel sounds normal, soft, non-tender, no guarding, rebound, rigidity, no masses noted, nondistended, no hepatosplenomegaly :No CVA tenderness MSCL: Non-tender, no muscle atrophy, muscles strength 5/5 upper and lower extremities, full range of motion, normal gait NEURO:CN 2-12 intact, decreased sensation to touch in distal extremities. Patient states normal. SKIN: No obvious rashes. Patient's amputation of her 4th toe appears to be fully healed. She does have some slight redness between the 5th and 4th toes on her right foot but no complete breakdown. Initial Vital Signs Initial Vital Signs: Vital Signs Pulse Rate 136 H 05/20/22 22:41 Pulse Oximetry 96 05/20/22 22:41 Course Orders Ordered: ED Orders 05/20/22 22:50 Complete Blood Count AUTO DIFF Stat Comprehensive Metabolic Panel Stat Lactate (Lactic Acid) Stat Lipase Stat NT-proBNP (BNP-Adult 18+) Stat Partial Thromboplastin Time Stat Procalcitonin Stat Prothrombin Time INR Stat Troponin & CK Cardiac Panel Stat 05/20/22 23:30 XR chest 1V Stat 05/20/22 23:50 Covid-19 + FLU A/B + RSV - PCR Stat 05/20/22 23:53 CT abdomen pelvis w con Stat 05/20/22 23:59 Urinalysis and Microscopic Stat Urine Culture Stat 05/21/22 01:40 MRSA (Nasal) PCR Stat Acetaminophen (Acetaminophen 325 Mg Tablet) 650 mg PO Q6H PRN PRN Reason: Fever/Mild Pain (1-3) Calcium Carbonate (Calcium Carbonate 500 Mg Tab) 1,000 mg PO Q4HR PRN PRN Reason: Dyspepsia Dextrose (Dextrose 50 % In Water 25 Gm/50 Ml Syringe) 25 gm IV PRN PRN PRN Reason: Hypoglycemia Enoxaparin Sodium (Enoxaparin 30 Mg/0.3 Ml Syringe) 30 mg SUBCUT DAILY [facility] Ceftriaxone Sodium 1,000 mg/ (Sodium Chloride) 100 mls @ 200 mls/hr IV Q24H JOSE ALBERTO Sodium Chloride (Normal Saline 0.9%) 500 mls @ 60 mls/hr IV CONT JOSE ALBERTO Insulin Human Lispro (Insulin Lispro 100 Unit/Ml 3ml Vial) 0 unit SUBCUT ACHS JOSE ALBERTO; Protocol Naloxone HCl (Naloxone 0.4 Mg/Ml Vial) 0.2 mg IV Q2MIN PRN PRN Reason: Opiate Reversal Ondansetron HCl (Ondansetron 4 Mg/2 Ml Inj) 4 mg IV Q8HR PRN PRN Reason: Nausea And Vomiting Sennosides (Sennosides 8.6 Mg Tablet) 17.2 mg PO BEDTIME JOSE ALBERTO Discontinued Medications Sodium Chloride (Normal Saline 0.9%) 1,000 mls @ 1,000 mls/hr IV BOLUS ONE Stop: 05/21/22 00:14 Last Infusion: 05/21/22 00:55 Dose: 0 mls/hr Documented By: Admin: 05/20/22 23:28 Dose: 1,000 mls/hr Documented By: ASHLEIGH Levofloxacin (Levaquin) 750 mg in 150 mls @ 100 mls/hr IV NOW ONE Stop: 05/21/22 02:03 Last Infusion: 05/21/22 02:11 Dose: 0 mls/hr Documented By: Admin: 05/21/22 00:46 Dose: 100 mls/hr Documented By: CHAYA Sodium Chloride (Normal Saline 0.9%) 1,000 mls @ 1,000 mls/hr IV BOLUS ONE Stop: 05/21/22 02:40 Last Admin: 05/21/22 01:46 Dose: 1,000 mls/hr Documented By: ASHLEIGH Vital Signs Vital signs: Vital Signs - 8 hr 05/20/22 22:47 05/20/22 22:41 05/20/22 22:43 Temperature 96.8 F L Pulse Rate 134 H 136 H Respiratory Rate 24 Blood Pressure 125/60 125/60 Pulse Oximetry 95 96 Oxygen Delivery Method Room Air 05/20/22 22:43 05/20/22 23:00 05/20/22 23:02 Temperature Pulse Rate 128 H 117 H Respiratory Rate 20 Blood Pressure 138/64 Pulse Oximetry 96 96 Oxygen Delivery Method 05/20/22 23:02 05/20/22 23:30 05/20/22 23:30 Temperature Pulse Rate 117 H 114 H Respiratory Rate 22 17 Blood Pressure 149/65 H Pulse Oximetry 94 Oxygen Delivery Method 05/21/22 00:00 05/21/22 00:00 05/21/22 00:30 Temperature Pulse Rate 107 H Respiratory Rate 16 Blood Pressure 129/60 129/60 Pulse Oximetry 97 Oxygen Delivery Method 05/21/22 00:30 05/21/22 01:00 05/21/22 01:00 Temperature Pulse Rate 100 H 97 H Respiratory Rate 22 20 Blood Pressure 135/61 Pulse Oximetry 96 96 Oxygen Delivery Method 05/21/22 01:30 Temperature Pulse Rate 102 H Respiratory Rate 26 H Blood Pressure Pulse Oximetry 96 Oxygen Delivery Method MDM - Nausea/Vomiting/Diarrhea Lab Data Result diagrams: 05/20/22 22:50 05/20/22 22:50 Labs: Lab Results 05/20/22 05/20/22 05/20/22 Range/Units 22:50 22:50 22:50 WBC 12.7 H (4.5-11.0) X10^3/uL RBC 3.64 L (4.0-5.2) X10^6/uL Hgb 11.1 L (12.0-16.0) g/dL Hct 32.1 L (36-46) % MCV 88.4 (80-100) fL MCH 30.4 (26-34) PG MCHC 34.5 (30-36) % RDW 14.8 (11.6-14.8) % Plt Count 250 (150-400) X10^3/uL Neut % (Auto) 89.3 H (50-75) % Lymph % (Auto) 6.0 L (25-40) % [place] % (Auto) 3.6 (3-14) % Eos % (Auto) 0.7 L (2-4) % Baso % (Auto) 0.4 (0-2) % Neut # (Auto) 92656 H (9545-0644) /uL Lymph # (Auto) 800 L (3727-0915) /uL [place] # (Auto) 500 (0-900) /uL Eos # (Auto) 100 (0-450) /uL Baso # (Auto) 0 (0-100) /uL PT 12.1 (10.1-12.7) SECONDS INR 1.1 (0.9-1.3) APTT 30 (26-36) SECONDS Sodium (137-145) mmol/L Potassium (3.4-5.1) mmol/L Chloride (98-107) mmol/L Carbon Dioxide (22-32) mmol/L BUN (7-17) mg/dL Creatinine (0.52-1.04) mg/dL Estimated GFR (>60) mL/min BUN/Creatinine Ratio (6-22) Glucose (80-110) mg/dL Hemoglobin A1c (4.0-6.0) % Lactate (0.7-2.1) mmol/L Calcium (8.4-10.2) mg/dL Total Bilirubin (0.2-1.3) mg/dL AST (14-36) IU/L ALT (<35) IU/L Alkaline Phosphatase (38-126) U/L Total Creatine Kinase (30-135) U/L CK-MB (CK-2) CK-MB (CK-2) Rel Index Troponin I (0.01-0.034) ng/mL NT-Pro-B Natriuret Pep (<125) pg/mL Total Protein (6.3-8.2) g/dL Albumin (3.5-5.0) g/dL Globulin (1.7-4.1) g/dL Albumin/Globulin Ratio (1.0-2.8) Lipase (23-300) U/L Procalcitonin 38.1 H (<0.5) ng/mL Urine Color Urine Appearance Urine pH (4.5-8.0) Ur Specific [place] (1.000-1.035) Urine Protein (Negative) Urine Glucose (UA) (Negative) g/dL Urine Ketones (NEGATIVE) Urine Occult Blood (Negative) Urine Nitrate (Negative) Urine Bilirubin (NEGATIVE) Urine Urobilinogen (0.2) E.U./dL Ur Leukocyte Esterase (NEGATIVE) Urine RBC (0-5/HPF) Urine WBC (0-5/HPF) Urine Bacteria (None) Ur Culture Indicated? SARS-CoV-2 (PCR) (Negative) Influenza A (RT-PCR) (NEGATIVE) Influenza B (RT-PCR) (NEGATIVE) RSV (PCR) (Negative) 05/20/22 05/20/22 05/20/22 Range/Units 22:50 22:50 22:50 WBC (4.5-11.0) X10^3/uL RBC (4.0-5.2) X10^6/uL Hgb (12.0-16.0) g/dL Hct (36-46) % MCV (80-100) fL MCH (26-34) PG MCHC (30-36) % RDW (11.6-14.8) % Plt Count (150-400) X10^3/uL Neut % (Auto) (50-75) % Lymph % (Auto) (25-40) % [place] % (Auto) (3-14) % Eos % (Auto) (2-4) % Baso % (Auto) (0-2) % Neut # (Auto) (7015-0785) /uL Lymph # (Auto) (9240-3144) /uL [place] # (Auto) (0-900) /uL Eos # (Auto) (0-450) /uL Baso # (Auto) (0-100) /uL PT (10.1-12.7) SECONDS INR (0.9-1.3) APTT (26-36) SECONDS Sodium 135 L (137-145) mmol/L Potassium 4.2 (3.4-5.1) mmol/L Chloride 104 (98-107) mmol/L Carbon Dioxide 17 L (22-32) mmol/L BUN 50 H (7-17) mg/dL Creatinine 1.15 H (0.52-1.04) mg/dL Estimated GFR 51 L (>60) mL/min BUN/Creatinine Ratio 43.5 H (6-22) Glucose 196 H (80-110) mg/dL Hemoglobin A1c (4.0-6.0) % Lactate 2.9 H (0.7-2.1) mmol/L Calcium 8.7 (8.4-10.2) mg/dL Total Bilirubin 1.3 (0.2-1.3) mg/dL AST 45 H (14-36) IU/L ALT 61 H (<35) IU/L Alkaline Phosphatase 227 H (38-126) U/L Total Creatine Kinase 31 (30-135) U/L CK-MB (CK-2) TNP CK-MB (CK-2) Rel Index TNP Troponin I < 0.012 (0.01-0.034) ng/mL NT-Pro-B Natriuret Pep 398 H (<125) pg/mL Total Protein 7.2 (6.3-8.2) g/dL Albumin 3.6 (3.5-5.0) g/dL Globulin 3.6 (1.7-4.1) g/dL Albumin/Globulin Ratio 1.0 (1.0-2.8) Lipase 85 (23-300) U/L Procalcitonin (<0.5) ng/mL Urine Color Urine Appearance Urine pH (4.5-8.0) Ur Specific [place] (1.000-1.035) Urine Protein (Negative) Urine Glucose (UA) (Negative) g/dL Urine Ketones (NEGATIVE) Urine Occult Blood (Negative) Urine Nitrate (Negative) Urine Bilirubin (NEGATIVE) Urine Urobilinogen (0.2) E.U./dL Ur Leukocyte Esterase (NEGATIVE) Urine RBC (0-5/HPF) Urine WBC (0-5/HPF) Urine Bacteria (None) Ur Culture Indicated? SARS-CoV-2 (PCR) (Negative) Influenza A (RT-PCR) (NEGATIVE) Influenza B (RT-PCR) (NEGATIVE) RSV (PCR) (Negative) 05/20/22 05/20/22 05/20/22 Range/Units 22:50 23:50 23:59 WBC (4.5-11.0) X10^3/uL RBC (4.0-5.2) X10^6/uL Hgb (12.0-16.0) g/dL Hct (36-46) % MCV (80-100) fL MCH (26-34) PG MCHC (30-36) % RDW (11.6-14.8) % Plt Count (150-400) X10^3/uL Neut % (Auto) (50-75) % Lymph % (Auto) (25-40) % [place] % (Auto) (3-14) % Eos % (Auto) (2-4) % Baso % (Auto) (0-2) % Neut # (Auto) (5165-7871) /uL Lymph # (Auto) (9433-0129) /uL [place] # (Auto) (0-900) /uL Eos # (Auto) (0-450) /uL Baso # (Auto) (0-100) /uL PT (10.1-12.7) SECONDS INR (0.9-1.3) APTT (26-36) SECONDS Sodium (137-145) mmol/L Potassium (3.4-5.1) mmol/L Chloride (98-107) mmol/L Carbon Dioxide (22-32) mmol/L BUN (7-17) mg/dL Creatinine (0.52-1.04) mg/dL Estimated GFR (>60) mL/min BUN/Creatinine Ratio (6-22) Glucose (80-110) mg/dL Hemoglobin A1c 8.2 H (4.0-6.0) % Lactate (0.7-2.1) mmol/L Calcium (8.4-10.2) mg/dL Total Bilirubin (0.2-1.3) mg/dL AST (14-36) IU/L ALT (<35) IU/L Alkaline Phosphatase (38-126) U/L Total Creatine Kinase (30-135) U/L CK-MB (CK-2) CK-MB (CK-2) Rel Index Troponin I (0.01-0.034) ng/mL NT-Pro-B Natriuret Pep (<125) pg/mL Total Protein (6.3-8.2) g/dL Albumin (3.5-5.0) g/dL Globulin (1.7-4.1) g/dL Albumin/Globulin Ratio (1.0-2.8) Lipase (23-300) U/L Procalcitonin (<0.5) ng/mL Urine Color Yellow Urine Appearance Cloudy Urine pH 5.5 (4.5-8.0) Ur Specific [place] 1.010 (1.000-1.035) Urine Protein 1+ H (Negative) Urine Glucose (UA) Trace H (Negative) g/dL Urine Ketones Trace H (NEGATIVE) Urine Occult Blood 3+ H (Negative) Urine Nitrate Positive H (Negative) Urine Bilirubin Negative (NEGATIVE) Urine Urobilinogen 1.0 (0.2) E.U./dL Ur Leukocyte Esterase 2+ H (NEGATIVE) Urine RBC 5-10/hpf H (0-5/HPF) Urine WBC >100/hpf H (0-5/HPF) Urine Bacteria Many (>30) H (None) Ur Culture Indicated? Specimen cultured SARS-CoV-2 (PCR) Negative (Negative) Influenza A (RT-PCR) Flu a negative (NEGATIVE) Influenza B (RT-PCR) Flu b negative (NEGATIVE) RSV (PCR) Negative (Negative) Point of Care Testing Glucose POC [address] scan - abdomen/pelvis: Radiologist's Impression: Close Abdomen/Pelvis CT (Signed) Coleman Pena - 05/20/22 Chest X-Ray (Signed) Coleman Pena - 05/20/22 Duplex Scan Lower Extremity Artery (Signed) Robin Mohr - 02/23/22 Chest X-Ray (Signed) MathieuJuan - 11/12/21 Foot MRI (Signed) Isidro Vela - 11/10/21 Telemetry Strips 11/10/21 Foot X-Ray (Signed) Roseline Marie - 11/10/21 Chest X-Ray (Signed) Robin Mohr - 10/30/20 EKG Rpt. 10/30/20 Foot MRI (Signed) Pavan Donahue - 11/22/18 Launch?[place] [address] CT Scan Report Signed Patient: Marissa Parikh MR#: [id number] : 1950 Acct:[id number] Age/Sex: 71 / F Date of Service: 05/20/22 Loc: Accession Number: [id number] ?? Procedure: CT abdomen pelvis w con Ordering Provider: Waleska Bhakta D.O. PROCEDURE:? CT ABDOMEN PELVIS W CON ? INDICATIONS:? n/v x 2 weeks, abd fullness ? TECHNIQUE:? After the administration of intravenous contrast, axial sections acquired from the lung bases to the pubic symphysis.? Coronal and sagittal reformats were performed.? For radiation dose reduction, the following was used:? automated exposure control, adjustment of mA and/or kV according to patient size.? ? COMPARISON:? None. ? FINDINGS:? Image quality:? Excellent.? ? Lung bases:? Unremarkable. Heart:? No significant findings. ? ABDOMEN: Liver:? Unremarkable.? ? Gallbladder:? Previously resected Biliary ducts:? Unremarkable.? ? Pancreas:? Unremarkable.? ? Spleen:? Unremarkable.? ? Adrenal Glands:? Unremarkable.? ? Kidneys and Ureters:? Unremarkable on the left but at the posterior mid kidney on the right there is a 7 x 9 mm calculus measuring 1127 Hounsfield units in radio density.? Inflammation around this structure is not associated, however.? No hydronephrosis is found..? ? ? Stomach and Bowel:? Stomach, small bowel loops, and colon are unremarkable.? Peritoneum:? No abnormal intraperitoneal fluid.? No free air.? ? Ventral Wall: ? No hernias.? Abdominal Nodes:? No retroperitoneal or mesenteric adenopathy by size criteria.? Vessels:? Aorta and inferior vena cava are normal in size.? ? PELVIS: Pelvic Organs:? Unremarkable.? ? Bladder:? Unremarkable.? ? Pelvic Nodes: No enlarged lymph nodes.? Miscellaneous: No hernias are seen. ? ? ? Bones:? Unremarkable.? IMPRESSION:? Isolated finding of 7 x 9 mm high density ovoid calculus within the nondistended collecting system of the right mid kidney.? A source of nausea and vomiting reported to have persisted over 2 weeks is not found.? This calculus does not appear associated with focal pyelonephritis involving the right kidney.? The appearance by CT scanning does not entirely exclude the possibility of a urinary tract infection, however. ? ? Dictated by: Coleman Pena M.D. on 05/21/2022 at 0:18 ? ? Approved by: Coleman Pena M.D. on 05/21/2022 at 0:21?? Chest x-ray: Radiologist's Impression: Marissa Parikh??71??F??1950 ? Allergy/Adv: codeine, amoxicillin, clavulanic acid, [unknown antibiotic] (More??) Close Abdomen/Pelvis CT (Signed) Coleman Pena - 05/20/22 Chest X-Ray (Signed) Coleman Pena - 05/20/22 Duplex Scan Lower Extremity Artery (Signed) Robin Mohr - 02/23/22 Chest X-Ray (Signed) Juan Murdock - 11/12/21 Foot MRI (Signed) Isidro Vela - 11/10/21 Telemetry Strips 11/10/21 Foot X-Ray (Signed) Roseline Marie - 11/10/21 Chest X-Ray (Signed) Robin Mohr - 10/30/20 EKG Rpt. 10/30/20 Foot MRI (Signed) Hari Donahuediah - 11/22/18 Launch?[facility] [address] [address] XRay Report Signed Patient: Marissa Parikh MR#: [id number] : 1950 Acct:[id number] Age/Sex: 71 / F Date of Service: 05/20/22 Loc: ED Accession Number: [id number] ?? Procedure: XR chest 1V Ordering Provider: Waleska Bhakta D.O. PROCEDURE:? XR CHEST 1V ? INDICATIONS:? chest pain ? TECHNIQUE:? One view of the chest was acquired.? ? COMPARISON:? [facility], CR, XR CHEST 1V, 11/12/2021, 15:19.? [facility], CR, XR CHEST 1V, 10/30/2020, 16:38. ? FINDINGS:? ? Surgical changes and devices:? None.? ? Lungs and pleura:? Lungs are clear.? No pleural effusions or pneumothorax.? ? Mediastinum:? Mediastinal contours appear normal.? Heart size is normal.? ? Bones and chest wall:? No suspicious bony lesions.? Overlying soft tissues appear unremarkable.? ? IMPRESSION:? Normal for age, source of current chest pain symptoms is not seen. ? ? Dictated by: Coleman Pena M.D. on 05/20/2022 at 23:41 ? ? Approved by: Coleman Pena M.D. on 05/20/2022 at 23:41?? ECG Data Attestation: I personally reviewed and interpreted this ECG as follows: Prior ECG tracings: not available for review Interpretation: Sinus tachycardia, rate of 118 TN 160 QRS of 86 and QTC 447. Q-wave in lead 3. No ST elevation noted. MDM Narrative Medical decision making narrative: This is a 71-year-old female with complaint of persistent nausea vomiting sweating generally feeling unwell she has noted some abdominal discomfort. Patient is insulin-dependent diabetic, hypertension dyslipidemia with no neuropathy she is required amputation of her toe in the past. She is tachycardic upon arrival, not hypotensive has been afebrile does not report any fevers workup shows leukocytosis, elevated procalcitonin, patient's creatinine appears increased from her prior from 0. Nine 1-1.15, patient's bicarb is 17 and lactate elevated at 2.9. Electrolytes are overall reassuring. Glucose is 196. BUN limited 50, patient has LFTs are elevated but are elevated in January of 2022 close to the same lipase is negative. Troponin is negative, BNP is 398. Patient not significantly fluid overload on exam but was only given a L fluid which has brought her heart rate to the 90s, would not give patient a 30 cc/kilos bolus as she is high risk for congestive heart failure. Was given dose of Levaquin as her urine shows nitrite positive urine with RBCs, greater than 100 wbc's and many bacteria. No squamous epithelials reported. CT KUB was obtained there is a stone in the kidney but does not appear obstructed. Discussed with hospitalist, OMID Roy who accepts for UTI/sepsis without hypotension up to this point, possible pyelonephritis but patient does not have any flank pain does not appear to have obstructed stone, patient's heart rate improved with fluids but was given additional dose did not receive intentionally a 30 cc/kilos bolus initially based on patient's age and history BNP slightly elevated 350. We will continue with fluid bolus as needed. Discharge Plan Departure Patient Disposition: Admitted As Inpatient Clinical Impression: Acute UTI, Sepsis, MADIHA (acute kidney injury) Admit Date/Time: 05/21/22 01:36 Admit Provider: Andressa Roy
[2022-05-20 23:28] LABS: PTT Partial Thromboplastin Tim 30 SECONDS (26-36)
[2022-05-20] MEDS: SODIUM CHLORIDE 0.9% 1,000 ML 1000 ML IV (23:28)
[2022-05-20 23:30] VITALS: BP 149/65; PULSE 114; RESP 17
--- NOTE | 2022-05-20 23:30 | DI.RAD.S_ITS ---
PROCEDURE: XR CHEST 1V INDICATIONS: chest pain TECHNIQUE: One view of the chest was acquired. COMPARISON: [facility], CR, XR CHEST 1V, 11/12/2021, 15:19. [facility], CR, XR CHEST 1V, 10/30/2020, 16:38. FINDINGS: Surgical changes and devices: None. Lungs and pleura: Lungs are clear. No pleural effusions or pneumothorax. Mediastinum: Mediastinal contours appear normal. Heart size is normal. Bones and chest wall: No suspicious bony lesions. Overlying soft tissues appear unremarkable. IMPRESSION: Normal for age, source of current chest pain symptoms is not seen. Dictated by: Coleman Pena M.D. on 05/20/2022 at 23:41 Approved by: Coleman Pena M.D. on 05/20/2022 at 23:41
[2022-05-20 23:38] LABS: Alanine Aminotransferase 61 IU/L (<35); Albumin 3.6 g/dL (3.5-5.0); Alkaline Phosphatase 227 U/L (38-126); Aspartate Aminotransferase 45 IU/L (14-36); BUN Creatinine Ratio 43.5 (6-22); Bilirubin Total 1.3 mg/dL (0.2-1.3); Blood Urea Nitrogen 50 mg/dL (7-17); Calcium 8.7 mg/dL (8.4-10.2); Carbon Dioxide 17 mmol/L (22-32); Chloride 104 mmol/L (98-107); Creatine Kinase 31 U/L (30-135); Estimated Glomerular Filt Rate 51 mL/min (>60); Globulin 3.6 g/dL (1.7-4.1); Glucose 196 mg/dL (80-110); HEMOLYSIS < 15 (0-50); Lipase 85 U/L (23-300); Potassium 4.2 mmol/L (3.4-5.1); Sodium 135 mmol/L (137-145); Total Protein 7.2 g/dL (6.3-8.2)
[2022-05-20 23:47] LABS: NT-proBNP (BNP-Adult 18+) 398 pg/mL (<125)
[2022-05-20 23:50] LABS: Troponin I < 0.012 ng/mL (0.01-0.034)
--- NOTE | 2022-05-20 23:53 | DI.CT.S_ITS ---
PROCEDURE: CT ABDOMEN PELVIS W CON INDICATIONS: n/v x 2 weeks, abd fullness TECHNIQUE: After the administration of intravenous contrast, axial sections acquired from the lung bases to the pubic symphysis. Coronal and sagittal reformats were performed. For radiation dose reduction, the following was used: automated exposure control, adjustment of mA and/or kV according to patient size. COMPARISON: None. FINDINGS: Image quality: Excellent. Lung bases: Unremarkable. Heart: No significant findings. ABDOMEN: Liver: Unremarkable. Gallbladder: Previously resected Biliary ducts: Unremarkable. Pancreas: Unremarkable. Spleen: Unremarkable. Adrenal Glands: Unremarkable. Kidneys and Ureters: Unremarkable on the left but at the posterior mid kidney on the right there is a 7 x 9 mm calculus measuring 1127 Hounsfield units in radiodensity. Inflammation around this structure is not associated, however. No hydronephrosis is found.. Stomach and Bowel: Stomach, small bowel loops, and colon are unremarkable. Peritoneum: No abnormal intraperitoneal fluid. No free air. Ventral Wall: No hernias. Abdominal Nodes: No retroperitoneal or mesenteric adenopathy by size criteria. Vessels: Aorta and inferior vena cava are normal in size. PELVIS: Pelvic Organs: Unremarkable. Bladder: Unremarkable. Pelvic Nodes: No enlarged lymph nodes. Miscellaneous: No hernias are seen. Bones: Unremarkable. IMPRESSION: Isolated finding of 7 x 9 mm high density ovoid calculus within the nondistended collecting system of the right mid kidney. A source of nausea and vomiting reported to have persisted over 2 weeks is not found. This calculus does not appear associated with focal pyelonephritis involving the right kidney. The appearance by CT scanning does not entirely exclude the possibility of a urinary tract infection, however. Dictated by: Coleman Pena M.D. on 05/21/2022 at 0:18 Approved by: Coleman Pena M.D. on 05/21/2022 at 0:21
[2022-05-20 23:55] LABS: Procalcitonin 38.1 ng/mL (<0.5)
[2022-05-21] VITALS (19 sets, daily range): BP systolic 92–170; BP diastolic 33–70; PULSE 88–107; RESP 16–26; TEMP 36.2–37.8; O2SAT 86–99; BMI 35.5
[2022-05-21 00:05] LABS: Lactate (Lactic Acid) 2.9 mmol/L (0.7-2.1)
[2022-05-21 00:27] LABS: Bilirubin Urine UA NEGATIVE (NEGATIVE); Color Urine UA YELLOW; Glucose Urine UA TRACE g/dL (Negative); Ketones Urine UA TRACE (NEGATIVE); Leukocyte Esterase Urine UA 2+ (NEGATIVE); Nitrite Urine UA POSITIVE (Negative); Occult Blood Urine UA 3+ (Negative); Protein Urine UA 1+ (Negative)
[2022-05-21 00:28] LABS: Appearance Urine UA CLOUDY; pH Urine UA 5.5 (4.5-8.0)
[2022-05-21 00:29] LABS: Culture Indicated Urine Specimen Cultured
[2022-05-21 00:36] LABS: Influenza A - CEPHEID Flu A NEGATIVE (NEGATIVE); Influenza B - CEPHEID Flu B NEGATIVE (NEGATIVE); Respiratory Syncytial Virus Negative (Negative)
[2022-05-21 00:40] LABS: Bacteria Urine Many (>30); RBC Urine 5-10/HPF (0-5/HPF); WBC Urine >100/HPF (0-5/HPF)
[2022-05-21 00:41] LABS: COVID-19 CEPHEID 4-PLEX PCR Negative (Negative)
[2022-05-21] MEDS: levoFLOXacin 750 MG/150 ML PIGGYBACK 100 MG IV (00:46)
[2022-05-21] MEDS: SODIUM CHLORIDE 0.9% 1,000 ML 1000 ML IV (01:46)
[2022-05-21 01:56] LABS: Reflexed Lactate in 2 Hours Y
--- NOTE | 2022-05-21 03:22 | DI.US.S_ITS ---
PROCEDURE: US RENAL COMPLETE INDICATIONS: pyleo, rt stone TECHNIQUE: Real-time scanning was performed of the kidneys and bladder, with image documentation. COMPARISON: [facility], CT, CT ABDOMEN PELVIS W CON, 05/20/2022, 23:59. FINDINGS: Kidneys: Kidneys are normal in size. Right kidney measures 12.4 cm long; left kidney measures 12.9 cm long. Right renal cortical thickness is 1.7 cm; left renal cortical thickness is 1.9 cm. Renal cortical echotexture is normal. 2 stones are seen within the right renal collecting system, measuring 9 mm and 8 mm. No hydronephrosis is seen. No solid masses are seen Bladder: Nondistended. Neither ureteral jet can be seen in Miscellaneous: No free pelvic fluid. IMPRESSION: 2 nonobstructing right-sided kidney stones seen. No hydronephrosis. Dictated by: Reg Salazar M.D. on 05/21/2022 at 8:21 Approved by: Reg Salazar M.D. on 05/21/2022 at 8:23
--- NOTE | 2022-05-21 03:25 | PM.HP.1 ---
History of Present Illness History of Present Illness Date Patient Seen: 05/21/22 Time Patient Seen: 03:26 Chief complaint: N/V, SOB, Sweats, Diabetic Narrative: Marissa Parikh is a 71-year-old female history of insulin-dependent diabetes, hypertension, dyslipidemia with chronic neuropathy and prior amputation of the toe in November of 2021 for infection.? Patient presents to the emergency department with complaint of generally feeling unwell sweats at daytime and nighttime, nausea and vomiting 1-2 times daily x2 weeks, and occasional cough, denies fever, positive body aches, no chest pain, occasional mild shortness of breath. ? Patient does have intercostal pain secondary to coughing that hurts with movement.? Patient denies any diarrhea, melena, a little constipated but BM yesterday. Positive urinary frequency, urgency, no dysuria, increased thirst, denies shortness of breath, chest pain, orthopnea, swelling in her extremities, syncope, new weakness.? Patient notes that her blood sugars have been increasing over the past 2 weeks, reports that she is compliant with her medications. She states she is allergic to codeine and Augmentin.? No tobacco, no alcohol, no illicit.? Her primary care is [facility] in [place].? Patient is not currently seeing any subspecialty providers she is no longer following with Wound Care she states her foot has healed. In ED her tachycardic heart rate 117-134, tachypneic respiratory rate 20 to 24. She was given Levaquin 2 L fluid bolus. At the time of admit temp 96.8?, BP 135/61, HR 97, R 20, O2 saturation 96% on room air. Patient has an elevated white count 12.7 with a left shift neutrophils 11,400, a lactate of 2.9, and procalcitonin 38.1. H&H 11.1/32.1, sodium 135, bicarb 17, BUN 50, creatinine 1.15, glucose 195, GFR 51-noting mild MADIHA. Gap 14 not in DKA, AST 45, ALT 61, alk-phos 227, BNP 398, albumin is normal 3.6, patient is negative for COVID, influenza a/B, RSV. Chest x-ray is negative, abdomen pelvis CT notes a 7 x 9 stone nonobstructing right kidney, pyelonephritis, EKG which I personally reviewed sinus tachycardia with a rate of 118 Q-wave seen in lead 3, without ST or T-wave changes, patient's urine is positive for blood, nitrates, glucose, occult blood, RBC, WBC, and bacteria culture pending. Blood culture pending. Sofa score: 0 patient admitted for UTI/pyelonephritis with MADIHA, lactic acidosis. Patient History Medical History Diabetes Hyperlipidemia Hypertension Surgical History H/O: hysterectomy History of cholecystectomy History of left knee replacement Family & Social History Family History Father Cancer Mother COPD (chronic obstructive pulmonary disease) Social History: household members family Safety & Behavioral: Feels Safe in Current Yes Environment Tobacco & Substance use: Tobacco type cigarettes Smoking Status Former smoker alcohol intake never Substance Use Type does not use Meds Home Medications and Allergies Home Medications Medication Instructions Recorded Confirmed Type dulaglutide 0.75 mg/0.5 mL 1 ea SUBCUT QWEEK 11/10/21 11/10/21 History subcutaneous pen injector (Trulicity) glipizide 10 mg tablet 1 tab PO BID 11/10/21 11/10/21 History ibuprofen 800 mg tablet 1 tab PO BID 11/10/21 11/10/21 History insulin aspart U-100 100 unit/mL See Rx Instructions .Route .COMPLEX 11/10/21 11/10/21 History (3 mL) subcutaneous pen (Novolog Flexpen U-100 Insulin aspart) insulin degludec 100 unit/mL (3 1 ea SUBCUT DAILY 11/10/21 11/10/21 History mL) subcutaneous pen (Tresiba FlexTouch U-100 insulin) lisinopril 20 1 tab PO DAILY 11/10/21 11/10/21 History mg-hydrochlorothiazide 12.5 mg tablet lovastatin 20 mg tablet 1 tab PO DAILY 11/10/21 11/10/21 History metformin 500 mg tablet,extended 1 tab PO BID 11/10/21 11/10/21 History release 24 hr Allergies Allergy/AdvReac Type Severity Reaction Status Date / Time codeine Allergy Severe ITCHING Verified 05/21/22 01:44 amoxicillin [From Augmentin] Allergy Verified 05/21/22 01:44 clavulanic acid Allergy Verified 05/21/22 01:44 [From Augmentin] unknown antibiotic Allergy Mild Uncoded 05/21/22 01:44 Review of Systems Review of Systems Narrative: All 12 point systems reviewed with the patient and are negative except otherwise documented. Exam Vital Signs (past 8 hours): - 05/20/22 22:47 05/20/22 22:41 05/20/22 22:43 Temperature 96.8 F L Pulse Rate 134 H 136 H Respiratory Rate 24 Blood Pressure 125/60 125/60 Pulse Oximetry 95 96 Oxygen Delivery Method Room Air 05/20/22 22:43 05/20/22 23:00 05/20/22 23:02 Temperature Pulse Rate 128 H 117 H Respiratory Rate 20 Blood Pressure 138/64 Pulse Oximetry 96 96 Oxygen Delivery Method 05/20/22 23:02 05/20/22 23:30 05/20/22 23:30 Temperature Pulse Rate 117 H 114 H Respiratory Rate 22 17 Blood Pressure 149/65 H Pulse Oximetry 94 Oxygen Delivery Method 05/21/22 00:00 05/21/22 00:00 05/21/22 00:30 Temperature Pulse Rate 107 H Respiratory Rate 16 Blood Pressure 129/60 129/60 Pulse Oximetry 97 Oxygen Delivery Method 05/21/22 00:30 05/21/22 01:00 05/21/22 01:00 Temperature Pulse Rate 100 H 97 H Respiratory Rate 22 20 Blood Pressure 135/61 Pulse Oximetry 96 96 Oxygen Delivery Method Oxygen Delivery Method Room Air Narrative Exam Narrative: General: Patient is a well-developed, well-nourished in no distress at this time. HEENT: Normocephalic, atraumatic, extraocular muscles intact, oral pharynx is clear and mucous membranes are moist. Neck is supple and symmetric, trachea is midline, no adenopathy, no thyroid enlargement, nontender, no masses palpated. Negative for JVD Chest: Normal AP diameter and contour without kyphoscoliosis, no nasal flaring, retractions, or tachypneic labored Lungs: Auscultation of all lung amezquita are clear without adventitious sounds, wheezes, rhonchi, or rales. Cardio: S1 & S2 with regular rate and rhythm without murmur, rubs, or gallops, no carotid bruit, no cardiac pulsations present. Abdomen: Soft nontender, negative for organomegaly, or masses. Bowel sounds are present in all 4 quadrants without guarding or rebound, no CVA tenderness. Musculoskeletal: Muscle strength and tone are equal within normal limits, no deformity, crepitus, effusions, cyanosis, clubbing or edema present. Full range of motion intact radial and pedal pulses are normal. Skin: Warm dry and intact without rashes, ulcerations or petechiae. Neuro: Alert and orientated x3, strength is +5/5 in all extremities, sensation to touch intact, no gross deficits noted of cranial nerves. Psych: Patient has a well-kept appearance, appropriate affect, mental status attitude thought context and judgment are appropriate for age. Objective Labs Result Diagrams: 05/20/22 22:50 05/20/22 22:50 Labs: Laboratory Results - last 24 hr 05/20/22 05/20/22 05/20/22 22:50 22:50 22:50 WBC 12.7 H RBC 3.64 L Hgb 11.1 L Hct 32.1 L MCV 88.4 MCH 30.4 MCHC 34.5 RDW 14.8 Plt Count 250 Neut % (Auto) 89.3 H Lymph % (Auto) 6.0 L Dent % (Auto) 3.6 Eos % (Auto) 0.7 L Baso % (Auto) 0.4 Neut # (Auto) 17726 H Lymph # (Auto) 800 L Dent # (Auto) 500 Eos # (Auto) 100 Baso # (Auto) 0 PT 12.1 INR 1.1 APTT 30 Sodium Potassium Chloride Carbon Dioxide BUN Creatinine Estimated GFR BUN/Creatinine Ratio Glucose Lactate Calcium Total Bilirubin AST ALT Alkaline Phosphatase Total Creatine Kinase CK-MB (CK-2) CK-MB (CK-2) Rel Index Troponin I NT-Pro-B Natriuret Pep Total Protein Albumin Globulin Albumin/Globulin Ratio Lipase Procalcitonin 38.1 H Urine Color Urine Appearance Urine pH Ur Specific [place] Urine Protein Urine Glucose (UA) Urine Ketones Urine Occult Blood Urine Nitrate Urine Bilirubin Urine Urobilinogen Ur Leukocyte Esterase Urine RBC Urine WBC Urine Bacteria Ur Culture Indicated? Nasal Screen MRSA (PCR) SARS-CoV-2 (PCR) Influenza A (RT-PCR) Influenza B (RT-PCR) RSV (PCR) 05/20/22 05/20/2223 22:50 22:50 22:50 WBC RBC Hgb Hct MCV MCH MCHC RDW Plt Count Neut % (Auto) Lymph % (Auto) Dent % (Auto) Eos % (Auto) Baso % (Auto) Neut # (Auto) Lymph # (Auto) Dent # (Auto) Eos # (Auto) Baso # (Auto) PT INR APTT Sodium 135 L Potassium 4.2 Chloride 104 Carbon Dioxide 17 L BUN 50 H Creatinine 1.15 H Estimated GFR 51 L BUN/Creatinine Ratio 43.5 H Glucose 196 H Lactate 2.9 H Calcium 8.7 Total Bilirubin 1.3 AST 45 H ALT 61 H Alkaline Phosphatase 227 H Total Creatine Kinase 31 CK-MB (CK-2) TNP CK-MB (CK-2) Rel Index TNP Troponin I < 0.012 NT-Pro-B Natriuret Pep 398 H Total Protein 7.2 Albumin 3.6 Globulin 3.6 Albumin/Globulin Ratio 1.0 Lipase 85 Procalcitonin Urine Color Urine Appearance Urine pH Ur Specific [place] Urine Protein Urine Glucose (UA) Urine Ketones Urine Occult Blood Urine Nitrate Urine Bilirubin Urine Urobilinogen Ur Leukocyte Esterase Urine RBC Urine WBC Urine Bacteria Ur Culture Indicated? Nasal Screen MRSA (PCR) SARS-CoV-2 (PCR) Influenza A (RT-PCR) Influenza B (RT-PCR) RSV (PCR) 05/20/22 05/20/22 05/21/22 23:50 23:59 01:40 WBC RBC Hgb Hct MCV MCH MCHC RDW Plt Count Neut % (Auto) Lymph % (Auto) Dent % (Auto) Eos % (Auto) Baso % (Auto) Neut # (Auto) Lymph # (Auto) Dent # (Auto) Eos # (Auto) Baso # (Auto) PT INR APTT Sodium Potassium Chloride Carbon Dioxide BUN Creatinine Estimated GFR BUN/Creatinine Ratio Glucose Lactate Calcium Total Bilirubin AST ALT Alkaline Phosphatase Total Creatine Kinase CK-MB (CK-2) CK-MB (CK-2) Rel Index Troponin I NT-Pro-B Natriuret Pep Total Protein Albumin Globulin Albumin/Globulin Ratio Lipase Procalcitonin Urine Color Yellow Urine Appearance Cloudy Urine pH 5.5 Ur Specific [place] 1.010 Urine Protein 1+ H Urine Glucose (UA) Trace H Urine Ketones Trace H Urine Occult Blood 3+ H Urine Nitrate Positive H Urine Bilirubin Negative Urine Urobilinogen 1.0 Ur Leukocyte Esterase 2+ H Urine RBC 5-10/hpf H Urine WBC >100/hpf H Urine Bacteria Many (>30) H Ur Culture Indicated? Specimen cultured Nasal Screen MRSA (PCR) Negative for mrsa SARS-CoV-2 (PCR) Negative Influenza A (RT-PCR) Flu a negative Influenza B (RT-PCR) Flu b negative RSV (PCR) Negative Assessment & Plan Assessment & Plan narrative: Marissa Parikh is a 71-year-old female history of insulin-dependent diabetes, hypertension, dyslipidemia with chronic neuropathy and prior amputation of the toe, positive wound cultures for MSSA and group B strep. Patient presents to the emergency department with complaint of generally feeling unwell, nausea and vomiting daily for the past 2 weeks. Patient is admitted for UTI/pyelonephritis with MADIHA, lactic acidosis. 1. UTI/pyelonephritis with MADIHA, tachycardia, tachypnea, acute, present on admission-without sepsis or septic shock -In ED HR 117-134, RR 20- 24. - Levaquin 2 L fluid bolus. -admit temp 96.8?, BP 135/61, HR 97, R 20, O2 saturation 96% on room air. -urine is positive for blood, nitrates, glucose, occult blood, RBC, WBC, and bacteria culture pending. -WBC 12.7, neutrophils 11,400, lactate of 2.9, procalcitonin 38.1. H&H 11.1/32.1, SOFA:0 -sodium 135, bicarb 17, BUN 50, creatinine 1.15, glucose 195, GFR 51- Gap 14 not in DKA -last labs 02/02/2022: Creatinine 0.91, GFR> 60 -A/P CT:7 x 9 mm high density ovoid calculus within the nondistended collecting system of the right mid kidney.?This calculus does not appear associated with focal pyelonephritis involving the right kidney.? -ordered a renal ultrasound -MRSA -Rocephin-empiric broad-spectrum coverage for Enterococcus and Staphylococcus -history of wound MSSA and group B strep-from toe amputation -NS at 60cc -blood and urine cultures pending -strict I&O -avoid nephrotoxic medications 2. Lactic acidosis, acute, present on admission - lactate of 2.9-trend per protocol -chest x-ray negative -repeat procalcitonin, ordered CRP, ESR, LDH -negative for COVID, influenza a/B, RSV. 3. Insulin-dependent type 2 diabetes with neuropathy and hyperlipidemia, acute on chronic, present on admission ?- admit blood sugar 195. Gap of 14, no DKA can manage with insulin and fluids-will monitor for DKA -admitted under diabetic protocol ?-hold home tresiba (convert to lantus here) 28 U, hold Trulicity, metformin, glipizide if no operative interventions -continue lovastatin ?-sliding scale coverage ?- A1c ?- dietary consultation. 3. Hypertension, essential, chronic, present on admission -control -continue lisinopril 4. Obesity mild, acute on chronic, present on admission -as evidence by BMI of 35.5 -dietary consult ordered regarding nutritional education and information for dietary, lifestyle, exercise, and weight changes. -the patient is at much higher risk for medical and surgical complications due to obesity as it relates to chronic illnesses: Diabetes, hyperlipidemia, and hypertension, and UTI/pyelonephritis MADIHA acute illness. The patient's obesity increases the difficulty and complexity of medical and/or surgical interventions, management and increases the chances of poor outcome such as morbidity and mortality as well as impaired wound healing. 5. Elevated liver enzymes transaminase, acute, present on admission -last labs 02/02/2022 AST 49, ALT 89, alk-phos 146 -Today: AST 45, ALT 61, alk-phos 227 -Trend Code status: Full Surrogate decision maker: Patient's son LISA PCR: Negative DVT/VTE prophylaxis: Lovenox and SCDs Disposition: Patient admitted for IV antibiotics and fluids for treatment UTI, pyelonephritis, MADIHA and lactic acidosis, expected length of stay greater than 2 midnights. I have utilized all available immediate resources to obtain, update, or review the patient's current medications. I confirmed that the patient's advanced care plan is present, Code status is documented and/or surrogate decision maker is listed in the patient's medical record. I have personally reviewed patient's chart notes from PCP, specialists, diagnostic imaging, and laboratory, Time Spent With Patient Critical Care time: I spent a total of [] minutes of critical care time on this patient's care today; this time is exclusive of procedural time.
[2022-05-21 03:56] LABS: Hemoglobin A1C% w Est Avg Glu 8.2 % (4.0-6.0)
[2022-05-21] MEDS: ONDANSETRON 4 MG/2 ML INJ IV (06:12)
[2022-05-21] MEDS: SODIUM CHLORIDE 0.9% 500 ML 60 ML IV ×2 (06:20→23:33)
[2022-05-21] MEDS: cefTRIAXone 1,000 MG in SODIUM CHLORIDE 0.9% 100 ML 200 MG IV ×2 (06:20→10:17)
[2022-05-21 07:20] LABS: Add Manual Diff / Slide Review NO; Basophils Absolute Auto 0 /uL (0-100); Basophils Percent Auto 0.5 % (0-2); Eosinophils Absolute Auto 100 /uL (0-450); Eosinophils Percent Auto 1.4 % (2-4); Hematocrit 26.6 % (36-46); Hemoglobin 9.2 g/dL (12.0-16.0); Lymphocytes Absolute Auto 900 /uL (1100-4500); Mean Corpuscular HGB Conc 34.8 % (30-36); Mean Corpuscular Hemoglobin 30.8 PG (26-34); Mean Corpuscular Volume 88.5 fL (80-100); Monocytes Absolute Auto 500 /uL (0-900); Monocytes Percent Auto 5.8 % (3-14); Neutrophils Absolute Auto 6500 /uL (1500-7000); Neutrophils Percent Auto 81.3 % (50-75); Platelet Count 188 X10^3/uL (150-400); Red Cell Distribution Width 14.4 % (11.6-14.8)
[2022-05-21] MEDS: LACTATED RINGERS 1,000 ML 1000 ML IV (07:28)
[2022-05-21 07:32] LABS: Lactate 2HR (Lactic Acid Rflx) 0.9 mmol/L (0.7-2.1)
[2022-05-21 07:33] LABS: Alanine Aminotransferase 52 IU/L (<35); Alkaline Phosphatase 162 U/L (38-126); Aspartate Aminotransferase 30 IU/L (14-36); Bilirubin Total 0.9 mg/dL (0.2-1.3); Blood Urea Nitrogen 40 mg/dL (7-17); Calcium 7.8 mg/dL (8.4-10.2); Carbon Dioxide 21 mmol/L (22-32); Chloride 105 mmol/L (98-107); Estimated Glomerular Filt Rate > 60 mL/min (>60); Glucose 127 mg/dL (80-110); HEMOLYSIS < 15 (0-50); Potassium 3.8 mmol/L (3.4-5.1); Sodium 137 mmol/L (137-145); Total Protein 6.4 g/dL (6.3-8.2)
[2022-05-21 07:50] LABS: Procalcitonin 25.7 ng/mL (<0.5)
[2022-05-21 07:58] LABS: Erythrocyte Sedimentation Rate 78 MM/HR (0-20)
[2022-05-21 08:15] LABS: Magnesium 1.9 mg/dL (1.6-2.3)
[2022-05-21 08:25] LABS: C-Reactive Protein Quant 16.5 mg/dL (<1.0)
--- NOTE | 2022-05-21 09:23 | PC.NURSE ---
Addendum entered by Audra Hamilton R.N. 05/21/22 16:25: Patients blood pressure has been running low but she is asymptomatic. She [place] [facility] [place] just ambulated to the chair and is reading her candie. Voices no complaints of pain. Addendum entered by Audra Hamilton R.N. 05/21/22 14:40: Patient given ibuprofen for complaints of riggers and headache. This has been helpful for patient, as she is sleeping soundly. She has NS infusing at 60cc/hr. and is tolerating this well. Original Note: Assess- Patient is alert and oriented x4, she denies pain or discomfort. Patients blood pressure low 90s/30 x2. Patient given an LR bolus. She voided on the bed michael, as her blood pressure was to low to get up. She voided 200cc of dark yellow urine. Patient is napping now and admit questions will done a bit later today.
[2022-05-21] MEDS: ENOXAPARIN 40 MG/0.4 ML SYRINGE SUBCUT (09:41)
[2022-05-21] MEDS: INSULIN LISPRO 100 UNIT/ML 3ML VIAL SUBCUT ×3 (12:16→20:29)
[2022-05-21] MEDS: IBUPROFEN 400 MG TABLET 800 MG PO (12:54)
[2022-05-21] MEDS: INSULIN GLARGINE 100 UNIT/ML 3ML PEN 28 UNIT SUBCUT (20:28)
[2022-05-21] MEDS: SENNOSIDES 8.6 MG TABLET 17.2 MG PO (20:30)
[2022-05-21 20:58] LABS: Acinetobacter baumannii Not Detected (Not Detect); E. coli Detected (Not Detect); Enterobacteriaceae species Detected (Not Detect); Enterococcus species Not Detected (Not Detect); KPC (carbapenem-resist gene) Not Detected (Not Detect); Listeria monocytogenes Not Detected (Not Detect); Staphylococcus species Not Detected (Not Detect); Streptococcus agalactiae (Gr B Not Detected (Not Detect); Streptococcus pneumonia Not Detected (Not Detect); Streptococcus pyogenes (Gr A) Not Detected (Not Detect); Streptococcus species Not Detected (Not Detect)
[2022-05-21 20:59] LABS: Candida albicans Not Detected (Not Detect); Candida glabrata Not Detected (Not Detect); Candida krusei Not Detected (Not Detect); Candida parapsilosis Not Detected (Not Detect); Candida tropicalis Not Detected (Not Detect); Enterobacter cloacae complex Not Detected (Not Detect); Haemophilus influenzae Not Detected (Not Detect); Neisseria meningitidis Not Detected (Not Detect); Proteus species Not Detected (Not Detect); Pseudomonas aeruginosa Not Detected (Not Detect); Serratia marcescens Not Detected (Not Detect)
[2022-05-21] MEDS: ACETAMINOPHEN 325 MG TABLET 650 MG PO (21:44)
[2022-05-21 22:26] LABS: Add Manual Diff / Slide Review NO; Basophils Absolute Auto 0 /uL (0-100); Basophils Percent Auto 0.4 % (0-2); Eosinophils Absolute Auto 100 /uL (0-450); Eosinophils Percent Auto 1.1 % (2-4); Hematocrit 31.6 % (36-46); Hemoglobin 10.7 g/dL (12.0-16.0); Lymphocytes Absolute Auto 900 /uL (1100-4500); Lymphocytes Percent Auto 12.2 % (25-40); Mean Corpuscular HGB Conc 33.8 % (30-36); Mean Corpuscular Hemoglobin 30.5 PG (26-34); Mean Corpuscular Volume 90.3 fL (80-100); Monocytes Absolute Auto 300 /uL (0-900); Monocytes Percent Auto 4.5 % (3-14); Neutrophils Absolute Auto 5900 /uL (1500-7000); Neutrophils Percent Auto 81.8 % (50-75); Platelet Count 206 X10^3/uL (150-400); White Blood Cell Count 7.2 X10^3/uL (4.5-11.0)
[2022-05-21 22:28] LABS: Lactate (Lactic Acid) 2.9 mmol/L (0.7-2.1)
[2022-05-21 22:30] LABS: Alanine Aminotransferase 66 IU/L (<35); Alkaline Phosphatase 252 U/L (38-126); Aspartate Aminotransferase 45 IU/L (14-36); BUN Creatinine Ratio 32.6 (6-22); Bilirubin Total 1.2 mg/dL (0.2-1.3); Blood Urea Nitrogen 30 mg/dL (7-17); Calcium 8.9 mg/dL (8.4-10.2); Carbon Dioxide 21 mmol/L (22-32); Chloride 103 mmol/L (98-107); Estimated Glomerular Filt Rate > 60 mL/min (>60); Glucose 165 mg/dL (80-110); HEMOLYSIS < 15 (0-50); Lactate Dehydrogenase 160 U/L (120-246); Potassium 4.2 mmol/L (3.4-5.1); Sodium 138 mmol/L (137-145); Total Protein 7.6 g/dL (6.3-8.2)
[2022-05-21] MEDS: SODIUM CHLORIDE 0.9% 500 ML 1000 ML IV (23:00)
[2022-05-22] VITALS (9 sets, daily range): BP systolic 95–172; BP diastolic 40–80; PULSE 82–142; RESP 17–18; TEMP 36.2–36.9; O2SAT 90–98
[2022-05-22 00:15] LABS: Reflexed Lactate in 2 Hours Y
[2022-05-22 00:57] LABS: Lactate 2HR (Lactic Acid Rflx) 0.7 mmol/L (0.7-2.1)
[2022-05-22] MEDS: cefTRIAXone 2,000 MG in SODIUM CHLORIDE 0.9% 100 ML 200 MG IV (05:36)
[2022-05-22 06:14] LABS: Alanine Aminotransferase 55 IU/L (<35); Alkaline Phosphatase 186 U/L (38-126); Aspartate Aminotransferase 35 IU/L (14-36); BUN Creatinine Ratio 32.5 (6-22); Blood Urea Nitrogen 26 mg/dL (7-17); Calcium 8.4 mg/dL (8.4-10.2); Carbon Dioxide 20 mmol/L (22-32); Chloride 106 mmol/L (98-107); Estimated Glomerular Filt Rate > 60 mL/min (>60); Glucose 139 mg/dL (80-110); HEMOLYSIS < 15 (0-50); Potassium 3.9 mmol/L (3.4-5.1); Sodium 136 mmol/L (137-145); Total Protein 6.2 g/dL (6.3-8.2)
[2022-05-22 06:22] LABS: Add Manual Diff / Slide Review NO; Basophils Absolute Auto 0 /uL (0-100); Basophils Percent Auto 0.6 % (0-2); Eosinophils Absolute Auto 100 /uL (0-450); Eosinophils Percent Auto 1.5 % (2-4); Hematocrit 27.8 % (36-46); Hemoglobin 9.3 g/dL (12.0-16.0); Lymphocytes Absolute Auto 1100 /uL (1100-4500); Lymphocytes Percent Auto 13.7 % (25-40); Mean Corpuscular HGB Conc 33.7 % (30-36); Mean Corpuscular Hemoglobin 30.4 PG (26-34); Mean Corpuscular Volume 90.2 fL (80-100); Monocytes Absolute Auto 600 /uL (0-900); Monocytes Percent Auto 6.9 % (3-14); Neutrophils Absolute Auto 6300 /uL (1500-7000); Neutrophils Percent Auto 77.3 % (50-75); Platelet Count 199 X10^3/uL (150-400); Red Blood Cell Count 3.08 X10^6/uL (4.0-5.2); Red Cell Distribution Width 14.5 % (11.6-14.8); White Blood Cell Count 8.2 X10^3/uL (4.5-11.0)
[2022-05-22] MEDS: ACETAMINOPHEN 325 MG TABLET 650 MG PO ×2 (07:44→23:31)
[2022-05-22] MEDS: INSULIN LISPRO 100 UNIT/ML 3ML VIAL SUBCUT ×4 (08:17→19:59)
[2022-05-22] MEDS: ENOXAPARIN 40 MG/0.4 ML SYRINGE SUBCUT (08:18)
--- NOTE | 2022-05-22 08:33 | PC.NURSE ---
Addendum entered by Audra Hamilton R.N. 05/22/22 12:20: Patients riggers have stopped, her prayer family is in the room visiting. Patient states that she is feeling better. Her blood sugar is 210. 3u of insulin given. Addendum entered by Audra Hamilton R.N. 05/22/22 11:54: Patient was yelling out, she has riggers and her temp is 99. Given tylenol earlier this am and some ibuprofen. Heart rate up to the 140s, down to 120s now. Cool cloth applied to patients forehead. She denies pain, is on 2.5L of o2 and her sats are 91%, Will check on patient soon. Original Note: Patients blood sugar this morning 131,1u of insulin given. Patient requested tylenol for her shakes. This was helpful to patient. She is in bed with the hob up and eating her breakfast. Lab called and states that patient is positive in 1 of 2 bottles for gram negative. Patient seems to be feeling better this morning. Dr. Carlson into see patient and do rounds.
[2022-05-22] MEDS: IBUPROFEN 400 MG TABLET 800 MG PO (11:23)
--- NOTE | 2022-05-22 13:39 | CM.DANOTE ---
Per MD, pt's cultures return and positive for ecoli bacteremia and having fevers and riggors this morning and not yet stable for discharge. Per UR, pt's changed from OBS to Inpt due to the Ecoli bactermia as of today. Per RN, pt has been up to BSC and to chair and seems mostly steady in room but not feeling the best today but has had supportive prayer group bedside and feeling better now. No current need for PT orders, but need to r/o possible need for HH closer to d/c. Plan: SW to follow for plan of d/c to home with sister assist and r/o HH needs closer to discharge. EVERETT Melo Discharge Planning/Care Management CM Discharge Assessment Start: 05/21/22 14:39 Freq: Status: Active Protocol: Document 05/21/22 14:39 (Rec: 05/21/22 14:42 [id number]) Discharge Planning Assessment Assigned Net Programmer Noris Licona RN/DCP Advance Directives? No Advance Directives on File No History Provided By Patient,Medical Record Household Members family Comment Sister Type of transporation used prior to Relies on Others admit Independent with ADL's No: Sister helps as needed Is patient alert and oriented? Yes Needs Assistance With Managing Medications,Home Chores / Shopping Caregiver for Another No DME Already Rented / Owned Cane Barriers to Discharge No Comment Has family support. Likely home w/family and close outpatient f/u r/o need for HH Discharge Plan Home Transportation Arrangement Family Additional Comment Following closely for referral need, HH Whiteboard Updated in Patient Room with Yes name and ext. # of Net Programmer Review Status In Process Next Review Type Continued Stay Review
--- NOTE | 2022-05-22 14:45 | P.PN_ITS ---
Subjective Subjective Date Patient Seen: 05/22/22 Interval history: Today patient had episode of rigors, feels much worse. BP and vitals okay, improved with antiinflammatories. Blood cultures positive for gram negative bacilli today. Labs are improved, despite her clinical deterioration with WBC improved and procalcitonin downtrending. Exam Vital Signs (past 8 hours): - 05/22/22 08:00 05/22/22 09:05 05/22/22 13:00 Temperature 97.4 F L Pulse Rate 86 Respiratory Rate 17 Blood Pressure 95/80 Pulse Oximetry 97 94 Oxygen Delivery Method Room Air Oxygen Flow Rate 2 2.5 05/22/22 12:00 Temperature 98.4 F Pulse Rate 142 H Respiratory Rate 17 Blood Pressure 172/68 H Pulse Oximetry 90 L Oxygen Delivery Method Oxygen Flow Rate 2 Oxygen Delivery Method Room Air Oxygen Flow Rate 2.5 Narrative Exam Narrative: General:? Patient is well developed and well nourished, in no distress at this time. Mildly ill appearing but later in the day she was having rigors, curled in bed with blankets. HEENT:? Normocephalic, atraumatic, extraocular muscles intact, oral pharynx is clear and mucous membranes are moist. Neck: supple and symmetric, trachea is midline, no cervical adenopathy. Chest:? Normal AP diameter and contour without kyphoscoliosis, no tachypnea, equal chest rise bilaterally. Lungs:? CTA b/l no wheezing rhonchi or rales. Cardio:?RRR no m/r/g. Abdomen: S NT ND. No CVA tenderness. Musculoskeletal:? Muscle strength and tone are equal within normal limits, no deformity. Extremities: No edema or joint effusions. No cyanosis or clubbing. Skin:? Pale,? Warm to touch,dry and intact without rashes, ulcerations or petechiae.? Neuro:? Alert and orientated x3,? sensation to touch intact in all extremities, no gross deficits noted of cranial nerves. Psych:? Patient has a well-kept appearance, appropriate affect, mental status attitude thought context and judgment are appropriate for age. Objective Labs Result Diagrams: 05/22/22 04:34 05/22/22 04:34 Labs: Laboratory Results - last 24 hr 05/20/22 05/21/22 05/21/22 00:40 22:09 22:09 WBC 7.2 RBC 3.50 L Hgb 10.7 L Hct 31.6 L MCV 90.3 MCH 30.5 MCHC 33.8 RDW 15.0 H Plt Count 206 Neut % (Auto) 81.8 H Lymph % (Auto) 12.2 L [place] % (Auto) 4.5 Eos % (Auto) 1.1 L Baso % (Auto) 0.4 Neut # (Auto) 5900 Lymph # (Auto) 900 L [place] # (Auto) 300 Eos # (Auto) 100 Baso # (Auto) 0 Sodium 138 Potassium 4.2 Chloride 103 Carbon Dioxide 21 L BUN 30 H Creatinine 0.92 Estimated GFR > 60 BUN/Creatinine Ratio 32.6 H Glucose 165 H Lactate Calcium 8.9 Magnesium 2.0 Total Bilirubin 1.2 AST 45 H ALT 66 H Alkaline Phosphatase 252 H D Lactate Dehydrogenase 160 Total Protein 7.6 Procalcitonin 16.0 H A. baumannii (PCR) Not detected Mar albicans (PCR) Not detected C. glabrata (PCR) Not detected C. krusei (PCR) Not detected C. parapsilosis (PCR) Not detected C. tropicalis (PCR) Not detected Enterobacteriac sp PCR Detected H E. cloacae complex PCR Not detected Enterococcus sp PCR Not detected E. coli (PCR) Detected H H. influenzae (PCR) Not detected Klebsiella oxytoca PCR Not detected Klebsiella pneumoniae Not detected List. monocytogenes PCR Not detected N. meningitidis (PCR) Not detected Proteus species (PCR) Not detected Serratia marcescens PCR Not detected Staphylococcus sp PCR Not detected Staph aureus (PCR) Not detected mecA-Methicil Res Gene Not Reportable Streptococcus sp PCR Not detected Group A Strep (PCR) Not detected Strep agalactiae (PCR) Not detected Strep pneumoniae (PCR) Not detected P. aeruginosa (PCR) Not detected Anuradha/B-Vanco Res Genes Not Reportable KPC-Carbap Res Gene PCR Not detected 05/21/22 05/22/22 05/22/22 22:09 00:36 04:34 WBC 8.2 RBC 3.08 L Hgb 9.3 L Hct 27.8 L MCV 90.2 MCH 30.4 MCHC 33.7 RDW 14.5 Plt Count 199 Neut % (Auto) 77.3 H Lymph % (Auto) 13.7 L [place] % (Auto) 6.9 Eos % (Auto) 1.5 L Baso % (Auto) 0.6 Neut # (Auto) 6300 Lymph # (Auto) 1100 [place] # (Auto) 600 Eos # (Auto) 100 Baso # (Auto) 0 Sodium Potassium Chloride Carbon Dioxide BUN Creatinine Estimated GFR BUN/Creatinine Ratio Glucose Lactate 2.9 H 0.7 Calcium Magnesium Total Bilirubin AST ALT Alkaline Phosphatase Lactate Dehydrogenase Total Protein Procalcitonin A. baumannii (PCR) Mar albicans (PCR) C. glabrata (PCR) C. krusei (PCR) C. parapsilosis (PCR) C. tropicalis (PCR) Enterobacteriac sp PCR E. cloacae complex PCR Enterococcus sp PCR E. coli (PCR) H. influenzae (PCR) Klebsiella oxytoca PCR Klebsiella pneumoniae List. monocytogenes PCR N. meningitidis (PCR) Proteus species (PCR) Serratia marcescens PCR Staphylococcus sp PCR Staph aureus (PCR) mecA-Methicil Res Gene Streptococcus sp PCR Group A Strep (PCR) Strep agalactiae (PCR) Strep pneumoniae (PCR) P. aeruginosa (PCR) Anuradha/B-Vanco Res Genes KPC-Carbap Res Gene PCR 05/22/22 04:34 WBC RBC Hgb Hct MCV MCH MCHC RDW Plt Count Neut % (Auto) Lymph % (Auto) [place] % (Auto) Eos % (Auto) Baso % (Auto) Neut # (Auto) Lymph # (Auto) [place] # (Auto) Eos # (Auto) Baso # (Auto) Sodium 136 L Potassium 3.9 Chloride 106 Carbon Dioxide 20 L BUN 26 H Creatinine 0.80 Estimated GFR > 60 BUN/Creatinine Ratio 32.5 H Glucose 139 H Lactate Calcium 8.4 Magnesium Total Bilirubin 1.0 AST 35 ALT 55 H Alkaline Phosphatase 186 H Lactate Dehydrogenase Total Protein 6.2 L Procalcitonin 12.0 H A. baumannii (PCR) Mar albicans (PCR) C. glabrata (PCR) C. krusei (PCR) C. parapsilosis (PCR) C. tropicalis (PCR) Enterobacteriac sp PCR E. cloacae complex PCR Enterococcus sp PCR E. coli (PCR) H. influenzae (PCR) Klebsiella oxytoca PCR Klebsiella pneumoniae List. monocytogenes PCR N. meningitidis (PCR) Proteus species (PCR) Serratia marcescens PCR Staphylococcus sp PCR Staph aureus (PCR) mecA-Methicil Res Gene Streptococcus sp PCR Group A Strep (PCR) Strep agalactiae (PCR) Strep pneumoniae (PCR) P. aeruginosa (PCR) Anuradha/B-Vanco Res Genes KPC-Carbap Res Gene PCR PFSH Medical History Diabetes Hyperlipidemia Hypertension Surgical History H/O: hysterectomy History of cholecystectomy History of left knee replacement Family History Father Cancer Mother COPD (chronic obstructive pulmonary disease) Social History household members: family Smoking Status: Former smoker alcohol intake: never Assessment & Plan Assessment & Plan narrative: Marissa Parikh is a 71-year-old female history of insulin-dependent diabetes, hypertension, dyslipidemia with chronic neuropathy and prior amputation of the toe, positive wound cultures for MSSA and group B strep. Patient presents to the emergency department with complaint of generally feeling unwell, nausea and vomiting daily for the past 2 weeks. Patient is admitted for UTI/pyelonephritis with MADIHA, lactic acidosis. 1. Sepsis secondary to Gram Negative Bacteremia, secondary to urinary source with nephrolithiasis, pyelonephritis - elevated lactate on admit improved with initial fluids and antibiotics - continue ceftriaxone 2g q24 hr for gram negative bacteremia - follow up blood and urine cultures - WBC and procalcitonin improving as expected, though with rigors today continue to watch with caution. Consider meropenem for possible ESBL if she does not respond or again develops fever or worsening status. No abdominal pain but consider repeat ultrasound if not improving as well given non obstructing stone seen on admitting ultrasound. - acute organ dysfunction includes acute respiratory failure with hypoxia, and MADIHA - wean from oxygen as able goal O2 90-96% while on supplemental therapy. 2. MADIHA - improved, suspect secondary to acute illness. 3. Acute respiratory failure with hypoxia - requiring 2.5 L of O2 today in setting of rigors, suspect sepsis as the etiology - continue management as noted above in problem #1. 4. Insulin-dependent type 2 diabetes with neuropathy and hyperlipidemia, acute on chronic, present on admission ?- admit blood sugar 195. Gap of 14, no DKA can manage with insulin and fluids- will monitor for DKA -admitted under diabetic protocol ?-hold home tresiba (convert to lantus here) 28 U, hold Trulicity, metformin, glipizide -continue lovastatin ?-sliding scale coverage 3. Hypertension, essential, chronic, present on admission -hold home lisinopril-hctz for now in setting of sepsis. 4. Obesity mild, acute on chronic, present on admission -as evidence by BMI of 35.5 -dietary consult ordered regarding nutritional education and information for dietary, lifestyle, exercise, and weight changes. -the patient is at much higher risk for medical and surgical complications due to obesity as it relates to chronic illnesses: Diabetes, hyperlipidemia, and hypertension, and UTI/pyelonephritis MADIHA acute illness. The patient's obesity increases the difficulty and complexity of medical and/or surgical interventions, management and increases the chances of poor outcome such as morbidity and mortality as well as impaired wound healing. 5. Elevated liver enzymes transaminase, acute, present on admission - improving, may have been elevated in setting of sepsis. No bilirubin elevation or abdominal pain. Ultrasound not necessary at this time. Code status: Full Surrogate decision maker: Patient's son LISA PCR: Negative DVT/VTE prophylaxis: Lovenox and SCDs Disposition: Inpatient, anticipate discharge home when improved, possibly in 1-2 more days depending on continued response to bacteremia. Time Spent With Patient Critical Care time: I spent a total of [] minutes of critical care time on this patient's care today; this time is exclusive of procedural time. Quality VTE Deep Vein Thrombosis/Pulmonary Embolism Present on Admission: No
[2022-05-22] MEDS: SODIUM CHLORIDE 0.9% 1,000 ML 60 ML IV (17:49)
[2022-05-22] MEDS: INSULIN GLARGINE 100 UNIT/ML 3ML PEN 28 UNIT SUBCUT (19:59)
[2022-05-22] MEDS: SENNOSIDES 8.6 MG TABLET 17.2 MG PO (20:00)
[2022-05-23] VITALS (8 sets, daily range): BP systolic 105–142; BP diastolic 56–75; PULSE 84–95; RESP 17–18; TEMP 36.1–37.2; O2SAT 91–96
[2022-05-23] MEDS: ONDANSETRON 4 MG/2 ML INJ IV (02:28)
[2022-05-23] MEDS: cefTRIAXone 2,000 MG in SODIUM CHLORIDE 0.9% 100 ML 200 MG IV (05:24)
[2022-05-23 06:30] LABS: Hematocrit 23.8 % (36-46); Hemoglobin 8.3 g/dL (12.0-16.0); Mean Corpuscular Hemoglobin 30.7 PG (26-34); Mean Corpuscular Volume 87.9 fL (80-100); Platelet Count 192 X10^3/uL (150-400); Red Blood Cell Count 2.71 X10^6/uL (4.0-5.2); Red Cell Distribution Width 14.7 % (11.6-14.8); White Blood Cell Count 6.6 X10^3/uL (4.5-11.0)
[2022-05-23 06:33] LABS: Add Manual Diff / Slide Review YES
[2022-05-23 06:37] LABS: Alanine Aminotransferase 59 IU/L (<35); Alkaline Phosphatase 180 U/L (38-126); Aspartate Aminotransferase 34 IU/L (14-36); BUN Creatinine Ratio 30.9 (6-22); Bilirubin Total 0.8 mg/dL (0.2-1.3); Blood Urea Nitrogen 21 mg/dL (7-17); Calcium 8.2 mg/dL (8.4-10.2); Carbon Dioxide 22 mmol/L (22-32); Chloride 107 mmol/L (98-107); Estimated Glomerular Filt Rate > 60 mL/min (>60); Glucose 193 mg/dL (80-110); HEMOLYSIS < 15 (0-50); Potassium 3.5 mmol/L (3.4-5.1); Sodium 136 mmol/L (137-145); Total Protein 5.8 g/dL (6.3-8.2)
[2022-05-23] MEDS: IBUPROFEN 400 MG TABLET 800 MG PO ×2 (06:46→21:50)
[2022-05-23 07:27] LABS: Neutrophils Absolute Manual 5346 /uL (3000-5900); Total Cells Counted 100
[2022-05-23 07:28] LABS: RBC Morphology Normal Morphology
[2022-05-23] MEDS: ENOXAPARIN 40 MG/0.4 ML SYRINGE SUBCUT (08:35)
[2022-05-23] MEDS: INSULIN LISPRO 100 UNIT/ML 3ML VIAL SUBCUT ×4 (08:39→21:40)
[2022-05-23] MEDS: POTASSIUM CHLORIDE 20 MEQ TAB 40 MEQ PO (09:49)
--- NOTE | 2022-05-23 15:54 | DIET.CONS2 ---
Dietary Inpatient Consultation Note Admission Date: 05/21/2022 01:36 Received consult for BMI 35.5, pt not appropriate for weight management counselling at this time. Recc outpatient f/u or please reconsult prn if more appropriate and desiring visit from [facility]. Pt on small carb consistent diet while hospitalized. Diet: 05/21/22 Breakfast Carbohydrate Consistent Diet Diet Modifications: Carbohydrate level: Small (2 CHO) Bedtime snack: Yes Nutrition Percent Meal Consumed 75% 05/23/22 09:00 Percent Meal Consumed 75% 05/22/22 16:00 Percent Meal Consumed 0% 05/22/22 13:00 Percent Meal Consumed 75% 05/21/22 18:00 Electronically Signed by: Indu Baugh 05/23/22 15:54 Clinical Dietitian [address] [id number]
--- NOTE | 2022-05-23 16:34 | PM.PN.1 ---
Subjective Subjective Date Patient Seen: 05/23/22 Interval history: Feels improved today. Some mild chills and shaking overnight, but no irene rigors again. Blood cultures with michael-sensitive E. coli. Will keep on ceftriaxone today. Hg continues to downtrend to 8.3 today, no signs or symptoms of bleeding. May be slightly dilutional, fluids were stopped. Exam Vital Signs (past 8 hours): - 05/23/22 09:00 05/23/22 12:00 05/23/22 12:49 Temperature 98.5 F 97.5 F L Pulse Rate 89 86 Respiratory Rate 17 17 Blood Pressure 133/56 L 128/60 Pulse Oximetry 91 93 93 Oxygen Delivery Method Room Air Oxygen Flow Rate 2 0 2 Oxygen Delivery Method Room Air Oxygen Flow Rate 2 Narrative Exam Narrative: General:? Patient is well developed and well nourished, in no distress at this time. HEENT:? Normocephalic, atraumatic, extraocular muscles intact, oral pharynx is clear and mucous membranes are moist. Neck: supple and symmetric, trachea is midline, no cervical adenopathy. Chest:? Normal AP diameter and contour without kyphoscoliosis, no tachypnea, equal chest rise bilaterally. Lungs:? CTA b/l no wheezing rhonchi or rales. Cardio:?RRR no m/r/g. Abdomen: S NT ND. No CVA tenderness. Musculoskeletal:? Muscle strength and tone are equal within normal limits, no deformity. Extremities: No edema or joint effusions. No cyanosis or clubbing. Skin:? Pale,? Warm to touch,dry and intact without rashes, ulcerations or petechiae.? Neuro:? Alert and orientated x3,? sensation to touch intact in all extremities, no gross deficits noted of cranial nerves. Psych:? Patient has a well-kept appearance, appropriate affect, mental status attitude thought context and judgment are appropriate for age. Objective Labs Result Diagrams: 05/23/22 04:54 05/23/22 04:54 Labs: Laboratory Results - last 24 hr 05/23/22 05/23/22 04:54 04:54 WBC 6.6 RBC 2.71 L Hgb 8.3 L Hct 23.8 L MCV 87.9 MCH 30.7 MCHC 35.0 RDW 14.7 Plt Count 192 Neut % (Auto) Not Reportable Lymph % (Auto) Not Reportable [place] % (Auto) Not Reportable Eos % (Auto) Not Reportable Baso % (Auto) Not Reportable Lymph # (Auto) Not Reportable [place] # (Auto) Not Reportable Baso # (Auto) Not Reportable Total Counted 100 Seg Neutrophils % 81.0 H Lymphocytes % (Manual) 9.0 L Monocytes % (Manual) 7.0 Eosinophils % (Manual) 3.0 Neutrophils # (Manual) 5346 RBC Morphology Normal morphology Sodium 136 L Potassium 3.5 Chloride 107 Carbon Dioxide 22 BUN 21 H Creatinine 0.68 Estimated GFR > 60 BUN/Creatinine Ratio 30.9 H Glucose 193 H Calcium 8.2 L Total Bilirubin 0.8 AST 34 ALT 59 H Alkaline Phosphatase 180 H Total Protein 5.8 L PFSH Medical History Diabetes Hyperlipidemia Hypertension Surgical History H/O: hysterectomy History of cholecystectomy History of left knee replacement Family History Father Cancer Mother COPD (chronic obstructive pulmonary disease) Social History household members: family Smoking Status: Former smoker alcohol intake: never Assessment & Plan Assessment & Plan narrative: Marissa Parikh is a 71-year-old female history of insulin-dependent diabetes, hypertension, dyslipidemia with chronic neuropathy and prior amputation of the toe, positive wound cultures for MSSA and group B strep. Patient presents to the emergency department with complaint of generally feeling unwell, nausea and vomiting daily for the past 2 weeks. Patient is admitted for UTI/pyelonephritis with MADIHA, lactic acidosis. 1. Sepsis secondary to E.coli Bacteremia, secondary to urinary source with nephrolithiasis, pyelonephritis - elevated lactate on admit improved with initial fluids and antibiotics - continue ceftriaxone 2g q24 hr for gram negative bacteremia - blood and urine cultures with michael-sensitive E. Coli - acute organ dysfunction includes acute respiratory failure with hypoxia, and MADIHA - wean from oxygen as able goal O2 90-96% while on supplemental therapy. 2. MADIHA - improved, suspect secondary to acute illness / sepsis 3. Acute respiratory failure with hypoxia, - requiring 2 L of O2 today, suspect sepsis as the etiology, chest xray on admission without acute pathology. - continue management as noted above in problem #1. - continue to follow and wean as able, still remains on 2L at 93% today. 4. Insulin-dependent type 2 diabetes with neuropathy and hyperlipidemia, acute on chronic, present on admission ?-hold home tresiba (convert to lantus here) 28 U, hold Trulicity, metformin, glipizide -continue lovastatin ?-sliding scale coverage 3. Hypertension, essential, chronic, present on admission -hold home lisinopril-hctz for now in setting of sepsis. 4. Obesity mild, acute on chronic, present on admission -as evidence by BMI of 35.5 -dietary consult ordered regarding nutritional education and information for dietary, lifestyle, exercise, and weight changes. -the patient is at much higher risk for medical and surgical complications due to obesity as it relates to chronic illnesses: Diabetes, hyperlipidemia, and hypertension, and UTI/pyelonephritis MADIHA acute illness. The patient's obesity increases the difficulty and complexity of medical and/or surgical interventions, management and increases the chances of poor outcome such as morbidity and mortality as well as impaired wound healing. 5. Elevated liver enzymes transaminase, acute, present on admission - improving, may have been elevated in setting of sepsis. No bilirubin elevation or abdominal pain. Ultrasound not necessary at this time. Code status: Full Surrogate decision maker: Patient's son LISA PCR: Negative DVT/VTE prophylaxis: Lovenox and SCDs Disposition: Inpatient, anticipate discharge home when improved, possibly in 1-2 more days depending on continued response to bacteremia. Time Spent With Patient Critical Care time: I spent a total of [] minutes of critical care time on this patient's care today; this time is exclusive of procedural time. Quality VTE Deep Vein Thrombosis/Pulmonary Embolism Present on Admission: No
[2022-05-23] MEDS: ACETAMINOPHEN 325 MG TABLET 650 MG PO (17:46)
[2022-05-23] MEDS: SENNOSIDES 8.6 MG TABLET 17.2 MG PO (21:40)
[2022-05-23] MEDS: INSULIN GLARGINE 100 UNIT/ML 3ML PEN 28 UNIT SUBCUT (21:42)
[2022-05-24] VITALS (10 sets, daily range): BP systolic 124–141; BP diastolic 41–62; PULSE 74–96; RESP 17–19; TEMP 36.2–37.1; O2SAT 94–98
[2022-05-24] MEDS: cefTRIAXone 2,000 MG in SODIUM CHLORIDE 0.9% 100 ML 200 MG IV (05:23)
[2022-05-24 06:03] LABS: BUN Creatinine Ratio 27.5 (6-22); Blood Urea Nitrogen 19 mg/dL (7-17); Calcium 8.9 mg/dL (8.4-10.2); Carbon Dioxide 23 mmol/L (22-32); Chloride 106 mmol/L (98-107); Estimated Glomerular Filt Rate > 60 mL/min (>60); Glucose 208 mg/dL (80-110); HEMOLYSIS < 15 (0-50); Sodium 137 mmol/L (137-145)
--- NOTE | 2022-05-24 08:02 | PM.PN.1 ---
Subjective Subjective Interval history: Dry cough, no dyspnea. No BM for 4 days. Occasional rigors, weak. Exam Vital Signs (past 8 hours): - 05/24/22 05:00 05/24/22 04:00 Temperature 97.9 F Pulse Rate 87 Respiratory Rate 18 Blood Pressure 141/62 H Pulse Oximetry 96 96 Oxygen Delivery Method Room Air Oxygen Flow Rate 0 Oxygen Delivery Method Room Air Oxygen Flow Rate 0 Const General: cooperative and healthy appearing Orientation: alert and awake HENMT Head: normal to inspection Eyes General: appearance normal, both eyes and all related structures Conjunctivae: conjunctivae normal Neck Neck: normal visual inspection Thyroid: thyroid normal Chest Chest: normal inspection of the chest Resp Effort & Inspection: normal respiratory effort Auscultation: clear to auscultation bilaterally Cardio Rate: regular rate Rhythm: regular rhythm Pulses: radial pulses present GI Palpation: soft and no hepatosplenomegaly Auscultation: normal bowel sounds Skin General: no rashes or lesions noted Neuro General: patient alert, patient awake and patient oriented x3 Extrem General: normal to inspection Psych Appearance: grossly normal Mental Status: mental status grossly normal Speech and Movement: speech and movement normal Objective Labs Result Diagrams: 05/23/22 04:54 05/24/22 04:50 Labs: Laboratory Results - last 24 hr 05/24/22 04:50 Sodium 137 Potassium 4.0 Chloride 106 Carbon Dioxide 23 BUN 19 H Creatinine 0.69 Estimated GFR > 60 BUN/Creatinine Ratio 27.5 H Glucose 208 H Calcium 8.9 PFSH Medical History Diabetes Hyperlipidemia Hypertension Surgical History H/O: hysterectomy History of cholecystectomy History of left knee replacement Family History Father Cancer Mother COPD (chronic obstructive pulmonary disease) Social History household members: family Smoking Status: Former smoker alcohol intake: never Assessment & Plan Assessment & Plan narrative: Assessment & Plan narrative: Marissa Parikh is a 71-year-old female history of insulin-dependent diabetes, hypertension, dyslipidemia with chronic neuropathy and prior amputation of the toe, positive wound cultures for MSSA and group B strep.? Patient presents to the emergency department with complaint of generally feeling unwell, nausea and vomiting daily for the past 2 weeks.? Patient is? admitted for UTI/pyelonephritis with MADIHA, lactic acidosis. ? 1. Sepsis secondary to E.coli pyelonephritis and bacteremia, present on admission and active. Improving. ?- continue ceftriaxone 2g q24 hr for gram negative bacteremia ?- blood and urine cultures with michael-sensitive E. Coli ?- acute organ dysfunction includes acute respiratory failure with hypoxia, and MADIHA ?- wean from oxygen as able goal O2 90-96% while on supplemental therapy. 2. Lactic acidosis, present on admission and improving. - trend and follow clinically. 2. MADIHA, present on admission and active. Improving. ?- improved, suspect secondary to acute illness / sepsis 3. Acute respiratory failure with hypoxia, present on admission and active. Improving. ?- requiring 2 L of O2 today, suspect sepsis as the etiology, chest xray on admission without acute pathology. ?- continue management as noted above in problem #1. ?- continue to follow and wean as able, still remains on 2L at 93% today. 4. Insulin-dependent type 2 diabetes mellitus (with neuropathy and hyperlipidemia), present on admission and active. Chronic. ?- hold home tresiba (converted to lantus here) 28 U, hold Trulicity, metformin, glipizide until discharge, - continue lovastatin ?-sliding scale coverage? 5. Hypertension, present on admission and active. Stable. - hold home lisinopril-hctz for now in setting of sepsis. 6. Obesity Class 2, present on admission and active. Chronic. - BMI of 35.5 - dietary consult ordered regarding nutritional education and information for dietary, lifestyle, exercise, and weight changes. - the patient is at much higher risk for medical and surgical complications due to obesity as it relates to chronic illnesses:? Diabetes, hyperlipidemia, and hypertension, and UTI/pyelonephritis MADIHA acute illness.? The patient's - obesity increases the difficulty and complexity of medical and/or surgical interventions, management and increases the chances of poor outcome such as morbidity and mortality as well as impaired wound healing. 7. Elevated liver enzymes transaminase, 7 present on admission and active. - improving, may have been elevated in setting of sepsis. - follow clincally and trend. ? Code status:? Full Surrogate decision maker:? Patient's son COVID PCR:? Negative DVT/VTE prophylaxis:? Lovenox and SCDs Disposition: Inpatient, anticipate discharge home when improved, possibly tomorrow depending on continued response to bacteremia. Time Spent With Patient Critical Care time: I spent a total of [] minutes of critical care time on this patient's care today; this time is exclusive of procedural time. Quality VTE Deep Vein Thrombosis/Pulmonary Embolism Present on Admission: No
[2022-05-24] MEDS: INSULIN LISPRO 100 UNIT/ML 3ML VIAL SUBCUT ×4 (08:59→20:53)
[2022-05-24] MEDS: ENOXAPARIN 40 MG/0.4 ML SYRINGE SUBCUT (08:59)
[2022-05-24] MEDS: ACETAMINOPHEN 325 MG TABLET 650 MG PO (12:36)
[2022-05-24] MEDS: polyethylene glycoL 3350 17 GM POWD.PACK PO ×2 (12:36→20:57)
[2022-05-24] MEDS: INSULIN GLARGINE 100 UNIT/ML 3ML PEN 28 UNIT SUBCUT (20:55)
[2022-05-24] MEDS: SENNOSIDES 8.6 MG TABLET 17.2 MG PO (20:57)
[2022-05-25] MEDS: IBUPROFEN 400 MG TABLET 800 MG PO (00:12)
[2022-05-25] MEDS: SODIUM CHLORIDE 0.9% FLUSH 10 ML IV ×3 (00:27→09:00)
[2022-05-25] MEDS: ONDANSETRON 4 MG/2 ML INJ IV (00:27)
--- NOTE | 2022-05-25 02:35 | PC.NURSE ---
Pt. diaphoretic, linen changed. Rechecked her blood glucose it was 187. Denies nausea & no C/O pain , will monitor & cont. POC.
[2022-05-25 04:00] VITALS: BP 138/66; PULSE 82; RESP 19; TEMP 36.2; O2SAT 98
[2022-05-25] MEDS: SODIUM CHLORIDE 0.9% 250 ML 21 ML IV (05:59)
[2022-05-25 06:00] VITALS: O2SAT 98
[2022-05-25] MEDS: cefTRIAXone 2,000 MG in SODIUM CHLORIDE 0.9% 100 ML 200 MG IV (06:10)
[2022-05-25 08:00] VITALS: BP 131/59; PULSE 77; RESP 16; TEMP 36.1; O2SAT 93
[2022-05-25 08:54] VITALS: O2SAT 94
[2022-05-25] MEDS: INSULIN LISPRO 100 UNIT/ML 3ML VIAL SUBCUT (08:54)
[2022-05-25] MEDS: ENOXAPARIN 40 MG/0.4 ML SYRINGE SUBCUT (09:00)
[2022-05-25] MEDS: polyethylene glycoL 3350 17 GM POWD.PACK PO (09:00)
--- NOTE | 2022-05-25 09:21 | PM.DS.1 ---
History of Present Illness History of Present Illness Date Patient Seen: 05/25/22 Chief complaint: N/V, SOB, Sweats, Diabetic Narrative: Chief complaint: N/V, SOB, Sweats, Diabetic Narrative: Marissa Parikh is a 71-year-old female history of insulin-dependent diabetes, hypertension, dyslipidemia with chronic neuropathy and prior amputation of the toe in November of 2021 for infection.? Patient presents to the emergency department with complaint of generally feeling unwell sweats at daytime and nighttime, nausea and vomiting 1-2 times daily x2 weeks, and occasional cough, denies fever, positive body aches, no chest pain, occasional mild shortness of breath. ? Patient does have intercostal pain secondary to coughing that hurts with movement.? Patient denies any diarrhea, melena, a little constipated but BM yesterday.? Positive urinary frequency, urgency, no dysuria, increased thirst, denies shortness of breath, chest pain, orthopnea, swelling in her extremities,? syncope,? new weakness.? Patient notes that her blood sugars have been increasing over the past 2 weeks, reports that she is compliant with her medications. She states she is allergic to codeine and Augmentin.? No tobacco, no alcohol, no illicit.? Her primary care is ALICE Escalante in [place].? Patient is not currently seeing any subspecialty providers she is no longer following with Wound Care she states her foot has healed. In ED her tachycardic heart rate 117-134, tachypneic respiratory rate 20 to 24.? She was given Levaquin 2 L fluid bolus. At the time of admit temp 96.8?, BP 135/61, HR 97, R 20, O2 saturation 96% on room air.? Patient has an elevated white count 12.7 with a left shift neutrophils 11,400, a lactate of 2.9, and procalcitonin 38.1.? H&H 11.1/32.1, sodium 135, bicarb 17, BUN 50, creatinine 1.15, glucose 195, GFR 51-noting mild MADIHA.? Gap 14 not in DKA, AST 45, ALT 61, alk-phos 227, BNP 398, albumin is normal 3.6, patient is negative for COVID, influenza a/B, RSV.? Chest x-ray is negative, abdomen pelvis CT notes a 7 x 9 stone nonobstructing right kidney, pyelonephritis, EKG which I personally reviewed sinus tachycardia with a rate of 118 Q-wave seen in lead 3, without ST or T-wave changes, patient's urine is positive for blood, nitrates, glucose, occult blood, RBC, WBC, and bacteria culture pending.? Blood culture pending.? Sofa score: 0 patient admitted for UTI/pyelonephritis with MADIHA, lactic acidosis. From H&P Note Discharge Providers Provider Date of admission: 05/21/22 01:36 Discharge Date: 05/25/22 Primary care physician: Opal Escalante PA-C Consults: 05/21/22 03:13 Consult to Dietitian, Adult Routine Comment: Reason For Exam: BMI 36.2 Discharge provider: Severiano Nuñez MD Summary Hospital Course Discharge Diagnosis: 1. Sepsis secondary to E coli pyelonephritis. Resident at admission and improved 2. E coli bacteremia. Present on admission and improved 3. Lactic acidosis, present on admission and resolved. 4. MDAIHA, present on admission and improved. 5. Acute respiratory failure with hypoxia, present on admission and resolved. 6. Insulin-dependent diabetes mellitus, present on admission and stable 7. Hypertension, present on admission and stable 8. Obesity class 2, present on admission and stable. Hospital Course: The patient was admitted with fevers, chills and rigors. She was found to have evidence of pyelonephritis and bacteremia with a pansensitive E coli. She broad-spectrum antibiotics which were narrowed to ceftriaxone. She continued to improve. She was initially hypoxic but was able to wean off from oxygen without specific intervention. Her lactic acidosis resolved with fluid resuscitation. It a mild elevation of function tests consistent with mild sepsis. Her blood sugars were controlled with subcutaneous insulin. She had good improvement with the old days with resolution of fevers. Laboratory tests normalized. She was felt to be stable for discharge with oral quinolones to complete a 14 total day course of therapy. Status at Discharge Cognitive/behavioral status at discharge: oriented Functional status at discharge: independent ambulation Overall status at discharge: patient is back to baseline Time Spent with Patient Time spent: Greater than 30 minutes Exam Vital Signs (past 8 hours): - 05/25/22 04:00 05/25/22 06:00 05/25/22 08:00 Temperature 97.1 F L 97 F L Pulse Rate 82 77 Respiratory Rate 19 16 Blood Pressure 138/66 131/59 L Pulse Oximetry 98 98 93 Oxygen Delivery Method Room Air Oxygen Flow Rate 0 0 Oxygen Delivery Method Room Air Oxygen Flow Rate 0 Const General: cooperative and healthy appearing Orientation: alert and oriented x3 HENMT Head: normal to inspection Eyes General: appearance normal, both eyes and all related structures Sclera: sclerae normal Cornea: corneas normal Neck Neck: normal visual inspection Chest Chest: normal inspection of the chest Resp Effort & Inspection: normal respiratory effort Auscultation: clear to auscultation bilaterally Cardio Rate: regular rate Rhythm: regular rhythm Heart Sounds: S1 normal and S2 normal Pulses: radial pulses present GI Inspection: normal to inspection Palpation: soft and no hepatosplenomegaly Skin General: no rashes or lesions noted Neuro Cognition: normal cognition Speech: speech normal Extrem General: normal to inspection Psych Appearance: grossly normal Objective Labs Result Diagrams: 05/23/22 04:54 05/24/22 04:50 PFSH Medical History Diabetes Hyperlipidemia Hypertension Surgical History H/O: hysterectomy History of cholecystectomy History of left knee replacement Family History Father Cancer Mother COPD (chronic obstructive pulmonary disease) Social History household members: family Smoking Status: Former smoker alcohol intake: never Discharge Assessment & Plan Assessment and Plan Assessment: 1. Sepsis secondary to Gram Negative Bacteremia, secondary to urinary source with nephrolithiasis, pyelonephritis. Present on admission and improved. ?- elevated lactate on admit improved with initial fluids and antibiotics ?- will be discharge on levofloxacin to complete 14 days therapy. 2. MADIHA ?- improved, suspect secondary to acute illness. 3. Acute respiratory failure with hypoxia, rpesent on admission and resolved. ?- requiring 2.5 L of O2 today in setting of rigors, suspect sepsis as the etiology ?- continue management as noted above in problem #1. 4. Insulin-dependent type 2 diabetes with neuropathy and hyperlipidemia, acute on chronic, present on admission and stable ?- admit blood sugar 195.? Gap of 14, no DKA can manage with insulin and fluids-will monitor for DKA - admitted under diabetic protocol 3. Hypertension, essential, chronic, present on admission and stable -hold home lisinopril-hctz for now in setting of sepsis. 4. Obesity mild, acute on chronic, present on admission - as evidence by BMI of 35.5 - dietary consult ordered regarding nutritional education and information for dietary, lifestyle, exercise, and weight changes. 5. Elevated liver enzymes transaminase, acute, present on admission and improved ?- improving, may have been elevated in setting of sepsis. No bilirubin elevation or abdominal pain. Ultrasound not necessary at this time. ? Plan of Treatment: Close PCP follow up Discharge Plan Discharge Plan Patient Disposition: Home Provider Discharge Comment: PCP (Boris) follow up within 6 days Discharge orders & Medications Prescriptions: New levofloxacin 750 mg tablet 750 mg PO DAILY Qty: 10 0RF Continued glipizide 10 mg tablet 1 tab PO BID Label Comments: TAKE ONE TABLET BY MOUTH TWICE DAILY metformin 500 mg tablet extended release 24 hr 1 tab PO BID Label Comments: TAKE ONE TABLET BY MOUTH TWICE DAILY lovastatin 20 mg tablet 1 tab PO DAILY Label Comments: TAKE 1 TABLET BY MOUTH AT EVENING MEAL insulin aspart U-100 [Novolog Flexpen U-100 Insulin] 100 unit/mL (3 mL) insulin pen See Rx Instructions .ROUTE .COMPLEX Label Comments: INJECT 10 UNITS SUBCUTANEOUSLY BEFORE BREAKFAST, 10 UNITS BEFORE LUNCH, 15 UNITS BEFORE DINNER Rx Instructions: 1 ea subcutaneously Trulicity 0.75 mg/0.5 mL pen injector 1 ea SUBCUT QWEEK Label Comments: Inject 0.75 mg subcutaneously once a week for Diabetes insulin degludec [Tresiba FlexTouch U-100] 100 unit/mL (3 mL) insulin pen 1 ea SUBCUT DAILY Label Comments: Inject 28 units subcutaneously once a day ibuprofen 800 mg tablet 1 tab PO BID Label Comments: TAKE ONE TABLET BY MOUTH TWICE DAILY for pain lisinopril-hydrochlorothiazide 20-12.5 mg tablet 1 tab PO DAILY Label Comments: TAKE ONE TABLET BY MOUTH EVERY MORNING FOR HIGH BLOOD PRESSURE Follow up/Referrals: Opal Escalante PA-C [Primary Care Provider] - 1 Week (funmilayo vizcaino pa-c office will call you with a follow up appointment to be scheduled within 6-7 days of discharge ) Discharge Health Status Health Concerns: Contact provider for fevers, vomiting, or pain. Multidrug resistant organism: No MDRO Diet/Activity/Treatments Diet: Carb-consistent/Diabetic Activity: As tolerated Visit Report/Discharge Packet Stand Alone Forms: Patient Portal/API, Stroke Signs & Symptoms Discharge Data Primary Care Provider: Opal Escalante VTE Deep Vein Thrombosis/Pulmonary Embolism Present on Admission: No
[2022-05-26 15:20] LABS: Albumin 3.5 g/dL (3.5-5.0); Albumin Globulin Ratio 0.9 (1.0-2.8); Globulin 4.1 g/dL (1.7-4.1)
[2022-05-26 15:29] LABS: Albumin 3.2 g/dL (3.5-5.0); Globulin 3.2 g/dL (1.7-4.1)
[2022-05-26 15:40] LABS: Albumin 2.8 g/dL (3.5-5.0); Albumin Globulin Ratio 0.8 (1.0-2.8); Globulin 3.4 g/dL (1.7-4.1)
[2022-05-26 16:08] LABS: Albumin 2.5 g/dL (3.5-5.0); Albumin Globulin Ratio 0.8 (1.0-2.8); Globulin 3.3 g/dL (1.7-4.1)
== END 2022-05-25 11:23 | disposition home or self-care (01) | DRG 871 ==
LOC: ED 05-21 01:17 → AC 05-21 01:58
PROVIDERS: Admitting Provider Nurse Practitioner Family; Emergency Provider Emergency Medicine; PCP Physician Assistant Medical; Referring Provider Emergency Medicine; Visit Provider Nurse Practitioner Family
DX: A41.9 Sepsis, unspecified organism (principal); J96.01 Acute respiratory failure with hypoxia; N10 Acute pyelonephritis; E87.21 Acute metabolic acidosis; N17.9 Acute kidney failure, unspecified; R65.20 Severe sepsis without septic shock; E11.40 Type 2 diabetes mellitus with diabetic neuropathy, unspecified; E78.5 Hyperlipidemia, unspecified; I10 Essential (primary) hypertension; E66.9 Obesity, unspecified; N20.0 Calculus of kidney; B96.20 Unspecified Escherichia coli [E. coli] as the cause of diseases classified elsewhere; Z79.84 Long term (current) use of oral hypoglycemic drugs; Z20.822 Contact with and (suspected) exposure to COVID-19; Z87.891 Personal history of nicotine dependence; Z79.4 Long term (current) use of insulin; Z68.35 Body mass index [BMI] 35.0-35.9, adult; Z79.85 Long-term (current) use of injectable non-insulin antidiabetic drugs
CPT/HCPCS: 0241U; 36415; 71045; 74177; 76770; 80048; 80053; 81001; 82009; 82550; 82962; 83036; 83605; 83615; 83690; 83735; 83880; 84145; 84484; 85007; 85025; 85610; 85651; 85730; 86140; 87040; 87077; 87086; 87150; 87186; 87797; 93005; 93010; 96365; 99284; 99285; J0696; J1650; J1815; J1956; J2405; Q9967

== ENCOUNTER → 2023-03-15 10:09 | Outpatient (CLI) | payer OTHER, SELFPAY ==
[2022-05-21 12:47] VITALS: BMI 35.5
[2023-03-15 11:08] LABS: Add Manual Diff / Slide Review NO; Basophils Absolute Auto 100 /uL (0-100); Basophils Percent Auto 1.1 % (0-2); Eosinophils Absolute Auto 300 /uL (0-450); Eosinophils Percent Auto 3.8 % (2-4); Hematocrit 36.8 % (36-46); Hemoglobin 12.6 g/dL (12.0-16.0); Lymphocytes Absolute Auto 2300 /uL (1100-4500); Lymphocytes Percent Auto 33.1 % (25-40); Mean Corpuscular HGB Conc 34.3 % (30-36); Mean Corpuscular Hemoglobin 31.1 PG (26-34); Mean Corpuscular Volume 90.7 fL (80-100); Monocytes Absolute Auto 400 /uL (0-900); Monocytes Percent Auto 5.3 % (3-14); Neutrophils Absolute Auto 4000 /uL (1500-7000); Neutrophils Percent Auto 56.7 % (50-75); Platelet Count 313 X10^3/uL (150-400); Red Blood Cell Count 4.06 X10^6/uL (4.0-5.2); Red Cell Distribution Width 12.8 % (11.6-14.8)
[2023-03-15 11:34] LABS: HEMOLYSIS < 15 (0-50); Potassium 4.4 mmol/L (3.4-5.1)
[2023-03-15 11:48] LABS: Hemoglobin A1C% w Est Avg Glu 8.2 % (4.0-6.0)
== END ==
PROVIDERS: PCP Physician Assistant Medical; Referring Provider Podiatrist; Visit Provider Podiatrist
DX: Z01.818 Encounter for other preprocedural examination (principal); R73.9 Hyperglycemia, unspecified; Z01.812 Encounter for preprocedural laboratory examination
CPT/HCPCS: 36415; 83036; 84132; 85025; 93005

== ENCOUNTER 2023-03-16 08:09 | Day surgery (SDC) | payer OTHER, SELFPAY ==
[2022-05-21 12:47] VITALS: BMI 35.5
[2023-03-14 08:08] VITALS: BMI 36.0
--- NOTE | 2023-03-16 | PATH_ITS ---
[facility] Accession Number: [id number] No. of containers..01 Tissue . 01 Material submitted: . foot - LEFT FIFTH METATARSAL HEAD . 01 Diagnosis: Left Fifth Metatarsal Head, Excision: Osteocartilaginous fragments with degenerative changes. No evidence of osteomyelitis. MRV 03/26/2023 1704 Local . 01 Electronically signed: . Rowan Rosado MD, Pathologist NPI- [id number] . 01 Gross description: . The specimen is received in formalin, labeled with the patient's name, , and left fifth metatarsal head, and consists of a fragment of bone with articular surface measuring 2.0 x 1.5 x 1.3 cm. The margin is inked blue. Sectioning reveals a mcclendon, trabecular cut surface with intact articular cartilage. No discoloration or lesion is identified. Firestopper Installer sections are submitted in cassette A1 following decalcification. ([id number]) /FRR 03/18/2023 1138 Local . 01 Pathologist provided ICD-10: E11.42, E11.621 . 01 CPT . 805790, 647319 Specimen Comment: A courtesy copy of this report has been sent to [phone] Performed at: 01 [facility] [address] [place] [address] [address] [facility], [place], [place] [id number] MD Tony Saenz MD Phone: [phone]
[2023-03-16 08:44] VITALS: BMI 36.0
[2023-03-16] MEDS: LACTATED RINGERS 1,000 ML 42 ML IV (08:52)
[2023-03-16] MEDS: ACETAMINOPHEN 325 MG TABLET 975 MG PO (08:58)
[2023-03-16 09:35] VITALS: BP 122/56; PULSE 89; RESP 16; TEMP 36.4; O2SAT 100
[2023-03-16] MEDS: CLINDAMYCIN 600 MG/50 ML PIGGYBACK 50 MG IV (09:56)
--- NOTE | 2023-03-16 11:18 | P.OP_ITS ---
Operative Date/Time/Diagnoses Date of procedure: 03/16/23 Time of procedure: 11:18 Pre-op diagnosis: Left fifth metatarsal head ulceration Post-op diagnosis: same Procedure & Clinicians Procedure: Left fifth metatarsal head excision, fifth toe amputation. Same procedure as scheduled: Yes Indications: 72 yo diabetic female with ongoing wound to the left fifth metatarsal head on ball of foot. Conservative measures failed to keep the wound healed and she wished to have surgical intervention at this time. We spoke of the option of fifth toe removal as well, as we did at her last clinic visit, which may be helpful to add to the procedure today to allow for better closure of the wound and also the less potential for that toe to get caught as it will be more of a floppy toe after head removal. She agreed and would like to add that to the procedure today. I also reviewed her HA1c level at 8.0 yesterday. She has previously been at 8.2 and with her wound today, we discussed the risk of waiting for further attempt at glucose control versus the risk of the wound getting more under control with surgery and possible slower healing, and she voiced understanding and prefers to move ahead with procedure today. We spoke of the risks, potential complications, alternatives, and expected outcomes. Consent was signed and no contraindications to the procedure at this time. Surgeon: Dulce Jimenes Click Yes if Unassisted: Yes Anesthesia Type: General, MAC +/- and Sedation Operative Notes Closure Type: primary Specimen(s): other (Aerobic/Anaerobic culture tissue fifth metatarsal head area. Pathology: Fifth metatarsal head bone.) Estimated Blood Loss (mL): 20 Blood products transfused: none Tourniquet time (min): 23 Procedure in detail: The patient was brought to the operating room and placed on the operating table in the supine position. The tourniquet was placed about the left ankle. Well- padded, appropriately aligned. After induction of anesthesia local anesthesia using the recorded injectables was obtained to the left foot lateral area. The left foot and ankle were prepped and draped in the usual aseptic manner. The tourniquet was inflated. After check of anesthesia a full-thickness circumferential incision was made around the fifth toe. This was then continued into the metatarsophalangeal joint linearly laterally, and the plantar lateral fifth metatarsal head wound was incorporated into the incision to be excised. The toe was carefully disarticulated and passed from the field. The ulceration appeared to be under the fifth metatarsal head, and did not appear to extend to bone, but the most prominent area plantarly on the bone had a patch of wear that I questioned for possible repeated trauma versus start of osteomyelitis. The head and neck of the fifth metatarsal was resected using a saw in a slightly angulated manner to allow for less pressure and easier tapering of the parabola. The distal bone resected was sent to pathololgy. The edges on remaining bone were gently smoothed with manual rasp. The area was irrigated with copious amounts of normal sterile saline. No necrotic tissue or abscesses were noted. Redundant tissue was debulked and reduced. Skin edges were revised to allow for appropriate closure. Tourniuqet was deflated, a prompt hyperemic response was seen to the foot. Vessels were cauterized and ligated as necessary. 3-0, 4-0 Vicryl was used subcutaneously for closure and 3-0 nylon for the skin. The area was dressed with a sterile lightly compressive dressing. She was transferred to the PACU with vital signs stable and vascular status intact to the foot. Complications: none Post-operative Condition: stable Disposition: PACU Plan for aftercare: Following a period of postoperative monitoring, the patient will be discharged to home on written and oral postoperative instructions including keeping the dressing dry and intact, no weight to the surgical foot except transfers. She did not bring her post op shoe today but has it to place when she gets home. DVT prevention techniques have been reviewed. Continue Plavix. For the 1st postoperative visit the dressing will be changed and close to the 3rd postoperative week we will likely remove the sutures.
--- NOTE | 2023-03-16 11:18 | PM.PREOP ---
Pre-operative Note Interval Note History & Physical reviewed/Exam performed by Physician: Yes Changes to H&P: No
--- NOTE | 2023-03-16 12:18 | SUR.OPER ---
Supine on padded OR bed, head on pillow, arms secured on padded arm boards at <90 degrees abduction, legs uncrossed, safety belt at lower torso, tape over blanket over right lower leg. Left leg sterile draped and in control of the Surgeon.
[2023-03-16] MEDS: LIDOCAINE 2% INJ MDV 20ML 20 ML INJ (12:25)
[2023-03-16 12:55] VITALS: BP 143/62; PULSE 85; RESP 16; TEMP 36.9; O2SAT 94
[2023-03-16 13:00] VITALS: BP 129/62; PULSE 82; RESP 13; O2SAT 94
[2023-03-16 13:05] VITALS: BP 125/57; PULSE 79; RESP 12; O2SAT 96
[2023-03-16] MEDS: ONDANSETRON 4 MG/2 ML INJ IV (13:13)
[2023-03-16 13:15] VITALS: BP 123/60; PULSE 83; RESP 14; O2SAT 96
[2023-03-16 13:30] VITALS: BP 124/53; PULSE 81; RESP 12; TEMP 36.7; O2SAT 96
== END 2023-03-16 13:45 | disposition home or self-care (01) ==
PROVIDERS: PCP Physician Assistant Medical; Referring Provider Orthopaedic Surgery; Visit Provider Podiatrist
PROC: (CPT 28113; principal; 2023-03-16 10:00)
DX: E11.621 Type 2 diabetes mellitus with foot ulcer (principal); E11.42 Type 2 diabetes mellitus with diabetic polyneuropathy; Z79.4 Long term (current) use of insulin; Z79.84 Long term (current) use of oral hypoglycemic drugs
CPT/HCPCS: 28113; 82962; 87070; 87075; 87205; J1100; J1885; J2405; J2704; J3010